=== PATIENT | male | born 1950 | race African-American/Black ===

== ENCOUNTER 2019-02-05 13:41 | Outpatient (CLI) | payer MEDICARE, MEDICAID ==
[~2019-02-05] VITALS: Ht 162.6 cm; Wt 67.6 kg
[~2019-02-05 13:41] MED LIST: ALLOPURINOL300 M1 ORAL; CARDIZEM30 MG ORAL; DILT-XR120 MG PO; HYDROCHLOROTHIA25 MG ORAL; IBUPROFEN600 MG ORAL; NEXIUM40 MG ORAL; NORCO 5-325 TA1 EAC1 ORAL
--- NOTE | 2019-02-05 14:50 | General Progress Note ---
Assessment/Plan Problem List: (1) Esophageal varices ICD Codes: I85.00 - Esophageal varices without bleeding SNOMED: 59727233 (2) Dysphagia ICD Codes: R13.10 - Dysphagia, unspecified SNOMED: 14472193, 413549434 (3) Anemia due to blood loss ICD Codes: D50.0 - Iron deficiency anemia secondary to blood loss (chronic) SNOMED: 564442128 (4) Peptic ulcer disease with hemorrhage ICD Codes: K27.4 - Chronic or unspecified peptic ulcer, site unspecified, with hemorrhage SNOMED: 25813400 (5) Cirrhosis ICD Codes: K74.60 - Unspecified cirrhosis of liver SNOMED: 55272113 (6) Cholelithiasis ICD Codes: K80.20 - Calculus of gallbladder without cholecystitis without obstruction SNOMED: 501221258 (7) Fatty liver ICD Codes: K76.0 - Fatty (change of) liver, not elsewhere classified SNOMED: 993544361 Assessment/Plan: plan EGD with repeat banding plan to remove the GT during EGd also will add colonoscopy given anemia Subjective ROS Limited/Unobtainable: Yes Allergies: Coded Allergies: No Known Allergies (Unverified , 05/04/16) Objective General Appearance: alert EENT: normal ENT inspection Neck: supple Cardiovascular: normal rate Respiratory/Chest: decreased breath sounds Abdomen: normal bowel sounds, non tender, soft Extremities: non-tender Slick Bailey MD Feb 05, 2019 14:50
[2019-02-05] MEDS ORDERED: LISINOPRIL10 MG ORAL (16:15)
[2019-02-05] MEDS ORDERED: AMLODIPINE BESYL5 MG ORAL (16:15)
[2019-02-05] MEDS ORDERED: DULCOLAX10 MG RC (16:15)
[2019-02-05] MEDS ORDERED: PRO-STAT LIQUID30 ML ORAL (16:15)
[2019-02-05] MEDS ORDERED: MILK OF MA400 MG/51 ORAL (16:15)
[2019-02-05] MEDS ORDERED: FERROUS SU220 MG/51 PO (16:15)
[2019-02-05] MEDS ORDERED: FLEET ENEMA133 ML RECTAL (16:15)
[2019-02-05] MEDS ORDERED: METOPROLOL TAR100 MG ORAL (16:15)
[2019-02-05] MEDS ORDERED: CRANBERRY425 MG PO (16:15)
[2019-02-05] MEDS ORDERED: PROCRIT10000 UNIT SUBQ (16:15)
[2019-02-05] MEDS ORDERED: ACETAMINOPHEN325 M1 ORAL (16:15)
[2019-02-05] MEDS ORDERED: COLACE100 MG ORAL (16:15)
[2019-02-05] MEDS ORDERED: SENNA S TABLET1 EAC1 PO (16:15)
[2019-02-05 16:17] VITALS: BP 114/70
== END 2019-02-05 15:41 | disposition home or self-care (01) ==
LOC: PAN 13:41
DX: I85.00 Esophageal varices without bleeding (principal); R13.10 Dysphagia, unspecified; D50.0 Iron deficiency anemia secondary to blood loss (chronic); K27.4 Chronic or unspecified peptic ulcer, site unspecified, with hemorrhage; K74.60 Unspecified cirrhosis of liver; K80.20 Calculus of gallbladder without cholecystitis without obstruction; K76.0 Fatty (change of) liver, not elsewhere classified
CPT/HCPCS: 99202

== ENCOUNTER 2019-02-17 08:19 | Day surgery (SDC) | payer MEDICARE, OTHER ==
[2019-02-17] VITALS (8 sets, daily range): BP systolic 126–150; BP diastolic 85–98
[~2019-02-17] VITALS: Ht 163.8 cm; Wt 76.2 kg
[~2019-02-17 08:19] MED LIST changes: +ACETAMINOPHEN325 M1 ORAL; +AMLODIPINE BESYL5 MG ORAL; +COLACE100 MG ORAL; +CRANBERRY425 MG PO; +DULCOLAX10 MG RC; +FERROUS SU220 MG/51 PO; +FLEET ENEMA133 ML RECTAL; +LISINOPRIL10 MG ORAL; +METOPROLOL TAR100 MG ORAL; +MILK OF MA400 MG/51 ORAL; +PRO-STAT LIQUID30 ML ORAL; +PROCRIT10000 UNIT SUBQ; +SENNA S TABLET1 EAC1 PO
[2019-02-17] MEDS ORDERED: Midazolam 2mg/2ml Inj ONE (08:20)
[2019-02-17] MEDS ORDERED: fentaNYL 100 mcg/2 mL IV ONE (08:20)
--- NOTE | 2019-02-17 09:53 | Pre-Procedure Note/Attestation ---
Pre-Procedure Note/Attestation Complete Prior to Procedure Planned Procedure: not applicable Procedure Narrative: esophagogastroduodenoscopy and colonoscopy Indications for Procedure Pre-Operative Diagnosis: anemia Attestation I attest that I discussed the nature of the procedure; its benefits; risks and complications; and alternatives (and the risks and benefits of such alternatives ), prior to the procedure, with the patient (or the patient's legal traveling representative). I attest that, if there was a reasonable possibility of needing a blood transfusion, the patient (or the patient's legal traveling representative) was given the [facility] standardized written summary, pursuant to the Jesse Amy Blood Safety Act ([place] Health and Safety Code # 1645, as amended). I attest that I re-evaluated the patient just prior to the surgery and that there has been no change in the patient's H&P, except as documented below: Slick Bailey MD Feb 17, 2019 09:53
--- NOTE | 2019-02-17 09:53 | Short Stay Surgery H&P ---
History of Present Illness History of Present Illness Chief Complaint see recent office note HPI Alexey Carrera is a 68 year old male who was admitted on for Gastrointestinal Hemorrhage, Angio Displacia Patient History Allergies: Coded Allergies: No Known Allergies (Unverified , 02/17/19) Medication History Scheduled Allopurinol* (Allopurinol*), 300 MG ORAL DAILY, (Reported) Amino Acids/Protein Hydrolys (Pro-Stat Liquid), 30 ML ORAL TWICE A DAY, ( Reported) Amlodipine Besylate* (Amlodipine Besylate*), 5 MG ORAL DAILY, (Reported) Bisacodyl (Dulcolax), 10 MG RC PRN, (Reported) Cranberry Extract (Cranberry), 850 MG PO DAILY, (Reported) Docusate Sodium* (Colace*), 100 MG ORAL TWICE A DAY, (Reported) Epoetin Rigoberto (Procrit), 10,000 UNIT SUBQ 3XW, (Reported) Ferrous Sulfate (Ferrous Sulfate), 7.5 ML PO TID, (Reported) Lisinopril* (Lisinopril*), 10 MG ORAL DAILY, (Reported) Metoprolol Tartrate* (Metoprolol Tartrate*), 100 MG ORAL EVERY 12 HOURS, ( Reported) Na Phos,M-B/Na Phos,Di-Ba* (Fleet Enema*), 133 ML RECTAL PRN, (Reported) Sennosides/Docusate Sodium (Senna S Tablet), 2 EACH PO QHS, (Reported) Scheduled PRN Acetaminophen* (Acetaminophen 325MG Tablet*), 650 MG ORAL Q4H PRN for Pain Scale (6-10), (Reported) Discontinued Medications Diltiazem HCl (Diltiazem 12Hr ER), 120 MG ORAL EVERY 6 HOURS, (Reported) Discontinued Reason: Pt stopped taking med Diltiazem Hcl (Dilt-Xr), 120 MG PO DAILY, (Reported) Discontinued Reason: Pt stopped taking med Esomeprazole Magnesium (Nexium), 40 MG ORAL BID Discontinued Reason: Pt stopped taking med Hydrochlorothiazide* (Hydrochlorothiazide*), 25 MG ORAL DAILY, (Reported) Discontinued Reason: Pt stopped taking med Hydrocodone Bit/Acetaminophen 5-325* ([place] 5-325 Tablet*), 1 TAB ORAL Q6HR PRN for For Pain, (Reported) Discontinued Reason: Pt stopped taking med Magnesium Hydroxide* (Milk Of Magnesia*), 30 ML ORAL DAILY, (Reported) Discontinued Reason: Pt stopped taking med Physical Exam Vital Signs Last Vital Signs Date Time Temp Pulse Resp B/P (MAP) Pulse Ox O2 Delivery O2 Flow Rate FiO2 02/17/19 09:11 Room Air 02/17/19 09:02 97.2 65 18 133/88 99 Plan Attestation Are the patient's medical conditions optimized for surgery? Slick Bailey MD Feb 17, 2019 09:53
[2019-02-17] MEDS ORDERED: LR 1000ml ONE (10:00)
[2019-02-17] MEDS ORDERED: Propofol 200mg/20ml IV ONE (10:00)
[2019-02-17 10:05] LABS: BASOPHILS % (AUTO) 1.7 % (0.0-2.0); EOSINOPHILS % (AUTO) 2.7 % (0.0-3.0); HEMATOCRIT 42.3 % (42.0-52.0); HEMOGLOBIN 12.4 G/DL (14.2-18.0); LYMPHOCYTES % (AUTO) 35.5 % (20.0-45.0); MEAN CORPUSCULAR VOLUME 90 FL (80-99); PLATELET COUNT 158 K/UL (150-450); RED BLOOD COUNT 4.71 M/UL (4.70-6.10); WHITE BLOOD COUNT 3.5 K/UL (4.8-10.8)
[2019-02-17] MEDS ORDERED: LR 1000ml 1,000 ML IVLG SCH (10:11)
--- NOTE | 2019-02-17 10:11 | Anethesia Preoperative Eval ---
Anesthesia Pre-op PMH/ROS General Date of Evaluation: Feb 17, 2019 Time of Evaluation: 09:50 Anesthesiologist: Atilio ASA Score: ASA 3 Mallampati Score Class I : Soft palate, uvula, fauces, pillars visible Class II: Soft palate, uvula, fauces visible Class III: Soft palate, base of uvula visible Class IV: Only hard plate visible Mallampati Classification: Class II Surgeon: Lynn Diagnosis: GI bleed Surgical Procedure: EGD Colonoscopy Anesthesia History: none Social History: alcohol use - h/o Family History: no anesthesia problems Allergies: Coded Allergies: No Known Allergies (Unverified , 02/17/19) Medications: see eMAR Patient NPO?: Yes Past Medical History Cardiovascular: Reports: HTN; Denies: CAD, DE, valve dz, arrhythmia, other Pulmonary: Denies: asthma, COPD, [place], other Gastrointestinal/Genitourinary: Reports: GERD, other - liver cirrosis; Denies: CRI, ESRD Neurologic/Psychiatric: Reports: depression/anxiety; Denies: dementia, CVA, TIA, other Endocrine: Denies: DM, hypothyroidism, steroids, other HEENT: Denies: cataract (L), cataract (R), glaucoma, [place] (L), [place] (R), other Hematology/Immune: Reports: anemia; Denies: DVT, bleeding disorder, other Musculoskeletal/Integumentary: Denies: OA, RA, DJD, DDD, edema, other PMH Narrative: as above PSxH Narrative: see H&P Anesthesia Pre-op Phys. Exam Physician Exam Last Vital Signs Date Time Temp Pulse Resp B/P (MAP) Pulse Ox O2 Delivery O2 Flow Rate FiO2 02/17/19 09:11 Room Air 02/17/19 09:02 97.2 65 18 133/88 99 Constitutional: NAD Neurologic: CN 2-12 intact Cardiovascular: RRR, no M/R/G Respiratory: CTA Gastrointestinal: S/NT/ND Airway Exam Mallampati Score: Class II MO: limited Neck: stiff Teeth: missing Dentures: no upper, no lower Anesthesia Pre-op A/P Labs Hematology Test 02/17/19 09:27 White Blood Count 3.5 K/UL (4.8-10.8) L Red Blood Count 4.71 M/UL (4.70-6.10) Hemoglobin 12.4 G/DL (14.2-18.0) L Hematocrit 42.3 % (42.0-52.0) Mean Corpuscular Volume 90 FL (80-99) Mean Corpuscular Hemoglobin 26.3 PG (27.0-31.0) L Mean Corpuscular Hemoglobin Concent 29.2 G/DL (32.0-36.0) L Red Cell Distribution Width 21.0 % (11.6-14.8) H Platelet Count 158 K/UL (150-450) Mean Platelet Volume 6.5 FL (6.5-10.1) Neutrophils (%) (Auto) 48.0 % (45.0-75.0) Lymphocytes (%) (Auto) 35.5 % (20.0-45.0) Monocytes (%) (Auto) 12.0 % (1.0-10.0) H Eosinophils (%) (Auto) 2.7 % (0.0-3.0) Basophils (%) (Auto) 1.7 % (0.0-2.0) Chemistry Test 02/17/19 09:27 Sodium Level Pending Potassium Level Pending Chloride Level Pending Carbon Dioxide Level Pending Blood Urea Nitrogen Pending Creatinine Pending Estimat Glomerular Filtration Rate Pending Glucose Level Pending Calcium Level Pending Total Bilirubin Pending Aspartate Amino Transf (AST/SGOT) Pending Alanine Aminotransferase (ALT/SGPT) Pending Alkaline Phosphatase Pending Total Protein Pending Albumin Pending Globulin Pending Studies Pre-op Studies: EKG - SR Risk Assessment & Plan Assessment: ASA 3 Plan: MAC Status Change Before Surgery: No Pre-Antibiotics Drug: none Kenroy Trimble MD Feb 17, 2019 10:11
[2019-02-17] MEDS ORDERED: fentaNYL 100 mcg/2 mL IV PRN (10:15)
--- NOTE | 2019-02-17 10:18 | Endoscopy Procedure Note ---
Endoscopy Procedure Note General Indication for Procedure: screening colon, ESoph varices Procedures Performed: EGD, colonoscopy Operative Findings/Diagnosis: 2 polyps, diverticulosis Specimen: yes Pt Tolerated Procedure Well: Yes Estimated Blood Loss: none Anesthesia Anesthesiologist: vy Anesthesia: MAC Inserted Devices Implant(s) used?: No Quality Quality of Bowel Preparation: Good Did scope reach the cecum?: Yes Was there any complications?: No GI Core Measures 50 yrs or older w/o bx or poly: No 10yrs. F/U recommended: Yes If not recommended, why?: Above average risk 18 years or older w/prev. colo: No Slick Bailey MD Feb 17, 2019 10:18
--- NOTE | 2019-02-17 10:27 | Immediate Post-Op Evaluation ---
Immediate Post-Op Evalulation Immediate Post-Op Evalulation Procedure: EGD Colonoscopy G tube removal Date of Evaluation: Feb 17, 2019 Time of Evaluation: 10:26 IV Fluids: 300 Blood Products: none Estimated Blood Loss: none Urinary Output: none Blood Pressure Systolic: 138 Blood Pressure Diastolic: 86 Pulse Rate: 67 Respiratory Rate: 20 O2 Sat by Pulse Oximetry: 98 Temperature (Fahrenheit): 97.8 Pain Score (1-10): 1 Nausea: No Vomiting: No Complications none Patient Status: reacts, patent, none Hydration Status: adequate Kenroy Trimble MD Feb 17, 2019 10:26
[2019-02-17 10:52] LABS: ANION GAP 12 mmol/L (5-15); BLOOD UREA NITROGEN 7 mg/dL (7-18); CALCIUM 9.5 MG/DL (8.5-10.1); CARBON DIOXIDE 20 MMOL/L (21-32); CHLORIDE 109 MMOL/L (98-107); CREATININE 1.1 MG/DL (0.55-1.30); POTASSIUM 4.9 MMOL/L (3.5-5.1); SODIUM 141 MMOL/L (136-145)
[2019-02-17 11:02] LABS: ALANINE AMINOTRANSFERASE 96 U/L (12-78); ALBUMIN/GLOBULIN RATIO 0.5 (1.0-2.7); ALKALINE PHOSPHATASE 203 U/L (46-116); ASPARTATE AMINO TRANSFERASE 148 U/L (15-37); BILIRUBIN,TOTAL 1.1 MG/DL (0.2-1.0)
[2019-02-17 11:03] LABS: BILIRUBIN,DIRECT 0.4 MG/DL (0.0-0.3)
--- NOTE | 2019-02-17 11:11 | 48 Hour Post Anesthesia Eval ---
Post Anesthesia Evaluation Procedure: EGD Colonoscopy G tube removal Date of Evaluation: Feb 17, 2019 Time of Evaluation: 11:10 Blood Pressure Systolic: 148 0: 72 Pulse Rate: 68 Respiratory Rate: 20 Temperature (Fahrenheit): 97.8 O2 Sat by Pulse Oximetry: 98 Airway: patent Nausea: No Vomiting: No Pain Intensity: 1 Hydration Status: adequate Cardiopulmonary Status: stable Mental Status/LOC: patient returned to baseline Follow-up Care/Observations: n/a Post-Anesthesia Complications: none Follow-up care needed: ready to discharge Kenroy Trimble MD Feb 17, 2019 11:11
--- NOTE | 2019-02-17 18:15 | Procedure Note ---
DATE OF PROCEDURE: 02/17/2019 SURGEON: Slick Bailey M.D. ANESTHESIOLOGIST: Dr. Trimble. PROCEDURE: Upper endoscopy with biopsy, G-tube removal, and colonoscopy with biopsy. ANESTHESIA: Per Dr. Trimble. INSTRUMENT: Olympus adult flexible upper endoscope and colonoscope. INDICATION: History of esophageal varices, need for removal of the G-tube, screening colonoscopy evaluation. The procedure, risks, benefits, and possible consequences, including hemorrhage, aspiration, perforation and infection, and alternative treatments, were explained to the patient/legal guardian by Dr. Slick Bailey and the patient/legal guardian understood and accepted these risks. DESCRIPTION OF PROCEDURE: After informed consent was obtained and the patient was adequately sedated, Olympus upper scope was advanced from mouth into the second portion of duodenum and retroflexion was performed in the stomach. The patient had evidence of esophageal varices. There was evidence of prior banding in the distal esophagus with scar tissue in that area. There was a clip still sitting at the GE junction, actually not only 1 clip compared to prior endoscopies which were two. There are still esophageal varices, but now much smaller. We decided not to band at this time. In the stomach, there was evidence of portal hypertensive gastropathy, evidence of GAVE in the prepyloric region. This area was biopsied. There was an inflammatory-looking polyp in the antrum also, which was biopsied. There was no evidence of any obvious gastric varices. During endoscopy, we removed the G-tube. We grabbed it with a snare and we cut it from externally and removed the G-tube. At this time, the upper endoscope was retrieved. The patient was turned over for colonoscopy. First, rectal exam was performed, which was positive for internal hemorrhoids. Then, the scope was advanced from the rectum into the cecum and subsequently to terminal ileum. Quality of prep was good. The patient had diverticulosis mainly in the right colon, especially in the cecum and ascending colon. There was evidence of two diminutive polyps in the rectosigmoid area, most probably hyperplastic, removed with the cold biopsy forceps technique. The patient had evidence of medium-sized internal hemorrhoids on retroflexion of the rectum. The patient tolerated the procedure very well without any complication. SUMMARY OF FINDINGS: 1. Esophageal varices. 2. Remaining clip at the GE junction. 3. Prior history of banding and scar tissue in the distal esophagus. 4. Portal hypertensive gastropathy, mild. 5. GAVE. 6. Gastric polyp, status post biopsy. 7. Internal hemorrhoids, medium in size. 8. Right-sided diverticulosis. 9. Two colonic polyps removed, see above for details. RECOMMENDATIONS: Follow up pathology. Treat accordingly. Recommend repeat colonoscopy in 5 years. We will recommend repeat EGD no later than 6 months with possible repeat banding at that time. Slick Bailey M.D. DR: Jes JOB#: [id number] CC:
--- NOTE | 2019-02-19 16:27 | Cardiology Report ---
APPROVED REPORT EKG Measurement Heart [id number] Normal sinus rhythm Normal ECG
== END 2019-02-17 12:00 | disposition home or self-care (01) ==
LOC: GAS 08:19
DX: Z12.11 Encounter for screening for malignant neoplasm of colon (principal); K63.5 Polyp of colon; K57.90 Diverticulosis of intestine, part unspecified, without perforation or abscess without bleeding; I85.00 Esophageal varices without bleeding; K76.6 Portal hypertension; K31.89 Other diseases of stomach and duodenum; K31.819 Angiodysplasia of stomach and duodenum without bleeding; K31.7 Polyp of stomach and duodenum; K64.8 Other hemorrhoids; Z79.899 Other long term (current) drug therapy; I10 Essential (primary) hypertension; K21.9 Gastro-esophageal reflux disease without esophagitis; F32.9 Major depressive disorder, single episode, unspecified; F41.9 Anxiety disorder, unspecified; K74.60 Unspecified cirrhosis of liver; K29.50 Unspecified chronic gastritis without bleeding
CPT/HCPCS: 36415; 43239; 43247; 45380; 80053; 82248; 85025; 93005; J2250; J2704; J3010; 94003; 94150

== ENCOUNTER 2019-03-03 13:26 | Outpatient (CLI) | payer MEDICARE, OTHER ==
--- NOTE | 2019-03-03 13:55 | General Progress Note ---
Assessment/Plan Problem List: (1) Gastritis ICD Codes: K29.70 - Gastritis, unspecified, without bleeding SNOMED: 2602587 (2) Cirrhosis ICD Codes: K74.60 - Unspecified cirrhosis of liver SNOMED: 11962652 (3) Alcohol dependence ICD Codes: F10.20 - Alcohol dependence, uncomplicated SNOMED: 68110069, 424547466 (4) Hypertension ICD Codes: I10 - Essential (primary) hypertension SNOMED: 87975106 (5) Fatty liver ICD Codes: K76.0 - Fatty (change of) liver, not elsewhere classified SNOMED: 102631452 Assessment/Plan: esophagogastroduodenoscopy and colonoscopy reviewed add ppi RTC 3 months Subjective ROS Limited/Unobtainable: Yes Allergies: Coded Allergies: No Known Allergies (Unverified , 02/17/19) Objective General Appearance: alert EENT: normal ENT inspection Neck: supple Cardiovascular: normal rate Respiratory/Chest: lungs clear Abdomen: normal bowel sounds, non tender, soft Extremities: non-tender Slick Bailey MD Mar 03, 2019 13:55
== END 2019-03-03 16:00 | disposition home or self-care (01) ==
LOC: PAN 13:26
DX: K29.70 Gastritis, unspecified, without bleeding (principal); K74.60 Unspecified cirrhosis of liver; F10.20 Alcohol dependence, uncomplicated; I10 Essential (primary) hypertension; K76.0 Fatty (change of) liver, not elsewhere classified
CPT/HCPCS: G0463

== ENCOUNTER 2019-12-15 20:45 | Inpatient (IN) | payer MEDICARE, OTHER ==
[~2019-12-15] VITALS: Ht 165.1 cm; Wt 73.9 kg
[2019-12-15 22:35] VITALS: BP 124/83
[2019-12-15] MEDS ORDERED: ASPIR 8181 MG ORAL (23:51)
[2019-12-15] MEDS ORDERED: AMOXICILLIN125 MG ORAL (23:51)
[2019-12-15] MEDS ORDERED: LOSARTAN POTAS100 MG ORAL (23:51)
[2019-12-16] VITALS: BP 125/80
[2019-12-16] MEDS ORDERED: Fleet's Enema 133ml RECTAL SCH (00:15)
[2019-12-16] MEDS ORDERED: D5 1/2NS w/KCl 20mEq 1,000 ML IV ONE (01:30)
[2019-12-16 07:26] LABS: BASOPHILS % (AUTO) 1.2 % (0.0-2.0); EOSINOPHILS % (AUTO) 2.2 % (0.0-3.0); HEMATOCRIT 27.4 % (42.0-52.0); HEMOGLOBIN 8.5 G/DL (14.2-18.0); LYMPHOCYTES % (AUTO) 21.5 % (20.0-45.0); MEAN CORPUSCULAR VOLUME 82 FL (80-99); MONOCYTES % (AUTO) 11.5 % (1.0-10.0); NEUTROPHILS % (AUTO) 63.7 % (45.0-75.0); PLATELET COUNT 169 K/UL (150-450); RED BLOOD COUNT 3.33 M/UL (4.70-6.10); WHITE BLOOD COUNT 3.9 K/UL (4.8-10.8)
--- NOTE | 2019-12-16 07:50 | NUR ---
NURSE NOTES: Received report from Shira ROBLES. Patient is AAO X4, denies any pain and in stable condition. No s/s n/v or SOB. No s/s of distress or discomfort noted. Patient is resting comfortably in bed. Bed is in lowest and locked position, call light within reach, bedside table within reach. Patient's home medications endorsed and will give it to pharmacy. Will continue with the plan of care.
[2019-12-16 08:00] VITALS: BP 143/89
[2019-12-16 08:01] LABS: ANION GAP 11 mmol/L (5-15); BLOOD UREA NITROGEN 10 mg/dL (7-18); CALCIUM 8.3 MG/DL (8.5-10.1); CARBON DIOXIDE 21 MMOL/L (21-32); CHLORIDE 110 MMOL/L (98-107); CREATININE 1.3 MG/DL (0.55-1.30); PHOSPHORUS 3.2 MG/DL (2.5-4.9); POTASSIUM 4.5 MMOL/L (3.5-5.1); SODIUM 141 MMOL/L (136-145)
[2019-12-16] MEDS ORDERED: Metoprolol Tartrate 100mg tab ORAL SCH (09:00)
[2019-12-16] MEDS ORDERED: Losartan 50mg tab ORAL SCH (09:00)
[2019-12-16] MEDS ORDERED: Lisinopril 10mg tab ORAL SCH (09:00)
[2019-12-16] MEDS: Aspirin EC 81mg tab ORAL SCH (09:08)
[2019-12-16] MEDS: Docusate 100mg cap ORAL SCH ×2 (09:10→17:44)
--- NOTE | 2019-12-16 11:04 | Consultation ---
History of Present Illness Present Illness HPI 69 year old male with extensive PMHx of CAD, s/p Stent and recent cardiac cath, cirrhosis, Hep C, ETOH abuse was taken by Paramedics to [facility] with CC of "convulsions". He was briefly unresponsive but quickly gained his consciousness. The CT of head was negative. He is transferred to [facility] [place] further management. Allergies: Coded Allergies: No Known Allergies (Unverified , 02/17/19) Medication History Scheduled Allopurinol* (Allopurinol*), 300 MG ORAL DAILY, (Reported) Amino Acids/Protein Hydrolys (Pro-Stat Liquid), 30 ML ORAL TWICE A DAY, ( Reported) Amlodipine Besylate* (Amlodipine Besylate*), 5 MG ORAL DAILY, (Reported) Amoxicillin (Amoxicillin), 500 MG ORAL BID, (Reported) Aspirin* (Aspir 81*), 81 MG ORAL DAILY, (Reported) Bisacodyl (Dulcolax), 10 MG RC PRN, (Reported) Cranberry Extract (Cranberry), 850 MG PO DAILY, (Reported) Docusate Sodium* (Colace*), 100 MG ORAL TWICE A DAY, (Reported) Epoetin Rigoberto (Procrit), 10,000 UNIT SUBQ 3XW, (Reported) Ferrous Sulfate (Ferrous Sulfate), 7.5 ML PO TID, (Reported) Lisinopril* (Lisinopril*), 10 MG ORAL DAILY, (Reported) Losartan Potassium (Losartan Potassium), 50 MG ORAL DAILY, (Reported) Metoprolol Tartrate* (Metoprolol Tartrate*), 100 MG ORAL EVERY 12 HOURS, ( Reported) Na Phos,M-B/Na Phos,Di-Ba* (Fleet Enema*), 133 ML RECTAL PRN, (Reported) Sennosides/Docusate Sodium (Senna S Tablet), 2 EACH PO QHS, (Reported) Scheduled PRN Acetaminophen* (Acetaminophen 325MG Tablet*), 650 MG ORAL Q4H PRN for Pain Scale (6-10), (Reported) Patient History Healthcare decision maker daughter/roomate Resuscitation status Full Code Advanced Directive on File Past Medical/Surgical History Past Medical/Surgical History: (1) Hepatitis C (2) Gout (3) Cirrhosis (4) Hypertension (5) Portal hypertension (6) Esophageal varices Review of Systems All Other Systems: negative except mentioned in HPI Physical Exam General Appearance: WD/WN, no apparent distress Lines, tubes and drains: peripheral, central line HEENT: PERRL Neck: normal alignment, limited range of motion Respiratory/Chest: chest wall non-tender, normal breath sounds Breasts: no masses Cardiovascular/Chest: normal rate Genitourinary/Rectal: normal genital exam, heme negative stool Extremities: normal range of motion Last 24 Hour Vital Signs Date Time Temp Pulse Resp B/P (MAP) Pulse Ox O2 Delivery O2 Flow Rate FiO2 12/16/19 09:09 78 143/89 12/16/19 09:09 143/89 12/16/19 09:08 143/89 12/16/19 09:00 Room Air 12/16/19 08:00 98.9 73 18 143/89 (107) 100 12/16/19 08:00 73 12/16/19 04:00 75 12/16/19 00:00 97.5 76 20 125/80 (95) 100 12/16/19 00:00 78 12/15/19 22:55 Room Air 12/15/19 22:35 96.4 77 124/83 (97) 98 Intake and Output 12/15/19 12/16/19 19:00 07:00 # Voids 1 # Bowel Movements 1 Laboratory Tests Test 12/16/19 06:30 White Blood Count 3.9 K/UL (4.8-10.8) L Red Blood Count 3.33 M/UL (4.70-6.10) L Hemoglobin 8.5 G/DL (14.2-18.0) L Hematocrit 27.4 % (42.0-52.0) L Mean Corpuscular Volume 82 FL (80-99) Mean Corpuscular Hemoglobin 25.4 PG (27.0-31.0) L Mean Corpuscular Hemoglobin Concent 30.9 G/DL (32.0-36.0) L Red Cell Distribution Width 25.0 % (11.6-14.8) H Platelet Count 169 K/UL (150-450) Mean Platelet Volume 5.1 FL (6.5-10.1) L Neutrophils (%) (Auto) 63.7 % (45.0-75.0) Lymphocytes (%) (Auto) 21.5 % (20.0-45.0) Monocytes (%) (Auto) 11.5 % (1.0-10.0) H Eosinophils (%) (Auto) 2.2 % (0.0-3.0) Basophils (%) (Auto) 1.2 % (0.0-2.0) Sodium Level 141 MMOL/L (136-145) Potassium Level 4.5 MMOL/L (3.5-5.1) Chloride Level 110 MMOL/L (98-107) H Carbon Dioxide Level 21 MMOL/L (21-32) Anion Gap 11 mmol/L (5-15) Blood Urea Nitrogen 10 mg/dL (7-18) Creatinine 1.3 MG/DL (0.55-1.30) Estimat Glomerular Filtration Rate > 60 mL/min (>60) Glucose Level 99 MG/DL (74-106) Calcium Level 8.3 MG/DL (8.5-10.1) L Phosphorus Level 3.2 MG/DL (2.5-4.9) Magnesium Level 2.1 MG/DL (1.8-2.4) Troponin I 0.002 ng/mL (0.000-0.056) Height (Feet): 5 Height (Inches): 5.00 Weight (Pounds): 163 Medications Current Medications Medications (Trade) Dose Ordered Sig/Alexandru Route PRN Reason Start Time Stop Time Status Last Admin Dose Admin Acetaminophen (Tylenol) 650 mg Q4H PRN ORAL Pain Scale (6-10) 12/16/19 00:15 01/15/20 00:14 Allopurinol (allopurinoL) 300 mg DAILY ORAL 12/16/19 09:00 01/15/20 08:59 12/16/19 09:09 Amoxicillin (Amoxil) 500 mg BID ORAL 12/16/19 09:00 12/23/19 08:59 12/16/19 09:09 Aspirin (Ecotrin) 81 mg DAILY ORAL 12/16/19 09:00 01/30/20 08:59 12/16/19 09:08 Bisacodyl (Dulcolax) 10 mg PRN RECTAL 12/16/19 00:15 03/15/20 00:14 Dextrose/ Electrolytes 1,000 ml @ 75 mls/hr [id number] ONCE IV 12/16/19 01:30 12/16/19 14:49 12/16/19 01:19 Docusate Sodium (Colace) 100 mg TWICE A DAY ORAL 12/16/19 09:00 01/15/20 08:59 12/16/19 09:10 Epoetin Rigoberto (Epoetin Rigoberto-EPBX(NON ESRD)) 10,000 unit SUN-SUN-SUN SUBQ 12/17/19 21:00 03/16/20 20:59 UNV Ferrous Sulfate (Feosol) 325 mg THREE TIMES A DAY ORAL 12/16/19 09:00 03/15/20 08:59 12/16/19 09:09 Lisinopril (ZestriL) 10 mg DAILY ORAL 12/16/19 09:00 01/15/20 08:59 12/16/19 09:09 Losartan Potassium (Cozaar) 50 mg DAILY ORAL 12/16/19 09:00 01/15/20 08:59 12/16/19 09:08 Metoprolol Tartrate (Lopressor) 100 mg EVERY 12 HOURS ORAL 12/16/19 09:00 03/15/20 08:59 12/16/19 09:09 Sodium Phosphate (Fleet's Sodium Phosl Enema) 133 ml PRN PRN RECTAL CONSTIPATION 12/16/19 03:30 01/15/20 00:14 UNV Assessment/Plan Problem List: (1) Acute encephalopathy ICD Codes: G93.40 - Encephalopathy, unspecified SNOMED: 86407168, 556042137 (2) New onset seizure ICD Codes: R56.9 - Unspecified convulsions SNOMED: 19040371 (3) Severe anemia ICD Codes: D64.9 - Anemia, unspecified SNOMED: 595511736 (4) Cirrhosis ICD Codes: K74.60 - Unspecified cirrhosis of liver SNOMED: 40584383 (5) Hepatitis C ICD Codes: B19.20 - Unspecified viral hepatitis C without hepatic coma SNOMED: 14613885 (6) Gout ICD Codes: M10.9 - Gout, unspecified SNOMED: 39646854 (7) Hypertension ICD Codes: I10 - Essential (primary) hypertension SNOMED: 55163915 (8) Portal hypertension ICD Codes: K76.6 - Portal hypertension SNOMED: 97992256 Assessment/Plan: telemetry monitoring echocardiogram neurology evaluation anemia w/u including OB of stool monitor BP and treat titrate pts home meds. abdominal US, Chaudhary documents show that pt might have a liver mass. Edgar Max MD Dec 16, 2019 11:03
[2019-12-16 12:00] VITALS: BP 126/84
[2019-12-16 12:30] LABS: INR 1.1 (0.9-1.1)
[2019-12-16 12:33] LABS: LACTATE DEHYDROGENASE 185 U/L (81-234)
[2019-12-16] MEDS ORDERED: Fleet's Enema 133ml RECTAL PRN (12:38)
[2019-12-16 13:01] LABS: % IRON SATURATION 21 % (15-50); IRON 64 ug/dL (50-175); TOTAL IRON BINDING CAPACITY 303 ug/dL (250-450)
--- NOTE | 2019-12-16 13:59 | NUR ---
NURSE NOTES: Dr Cary dc'd amoxicillin and Lisinopril. Order acknowledged and carried out. Will continue to monitor patient.
--- NOTE | 2019-12-16 15:25 | History & Physical ---
History and Physical History & Physicial Dictated for Int Med-Dr Cary no. [id number]. John Anthony MD Dec 16, 2019 15:25
--- NOTE | 2019-12-16 15:34 | NUR ---
CASE MANAGEMENT:REVIEW 69 YR OLD MALE TRANSFERRED FROM [facility] SI: SYNCOPE 96.4 77 20 124/83 98% ON RA WBC-3.9 H/H-8.5/27.4 ESR+88 RETIC+4.0 IS: IVF@75/HR AMOXICILLIN PO BID IRON PO TID LOPRESSOR PO Q12 COZAAR PO QD ASA PO QD ALLOPURINOL PO QD EPOETIN SQ MWF : DIRECTLY ADMITTED TO TELEMETRY PLAN: CAROTID DUPLEX ABD US MRI BRAIN 2DECHO
[2019-12-16 16:00] VITALS: BP 133/83
--- NOTE | 2019-12-16 16:57 | Diagnostic Imaging Report ---
Indication: Abdominal pain, history of cirrhosis Technique: Lockwood-scale and duplex images of the upper abdomen were obtained Comparison: 07/18/2016 Findings: Gallbladder demonstrates gallstones. No wall thickening or pericholecystic fluid Sonographic Koenig's sign is negative. Common bile duct measures / mm in diameter. No intrahepatic biliary ductal dilatation. Liver demonstrates surface nodularity. In the left hepatic lobe, there is suggestion of an isoechoic 3.3 x 3.8 cm mass. In the right hepatic lobe, there is a hypoechoic 6.1 x 5.6 cm mass. This is adjacent to the inferior vena cava. Hepatic parenchyma demonstrates slightly increased echogenicity. Portal vein and hepatic veins are patent. Pancreas is unremarkable. The spleen is enlarged, measuring 13.6 cm long axis dimension Left kidney measures 10 cm in length. Right kidney measures 9.6 cm length. Both kidneys demonstrate normal echogenicity. There is no hydronephrosis. The right kidney demonstrates a cyst . Non-aneurysmal abdominal aorta . Impression: Possible isoechoic 3.8 cm left lobe liver mass. Hypoechoic 6.1 cm right lobe liver mass. Recommend further evaluation with contrast CT Increased hepatic echogenicity and surface nodularity suggestive cirrhotic changes Mild splenomegaly Cholelithiasis, also previously reported. Negative for dilated bile ducts Right renal cyst incidentally noted
[2019-12-16] MEDS: HYDROcodone/Acetamin 10/325 tab ORAL PRN (17:46)
--- NOTE | 2019-12-16 18:15 | Cardiology Progress Note ---
Assessment/Plan Assessment/Plan probable syncope hypotension on presentation to [facility] with occlusion of non dominant rca with coalrel for left with mod dz in left system includign lm and only sever dz describeis om1 small jained by shaila cx stent hepatic dome mass felt to be hcc being vasquez by hepatology at [facility] was to have mri tomorrow cirrhosis hx of g bleed echo normal lv function trop neg despite hours of cp ekg neg bp improved form 90/60 on initial presentation to [facility] to 130/80 a few hour later suggestive that hypotension likely the cause of syncope his ct of head was neg at [facility] it dose not sound as if he had a seizure but that needs to be determined by other experts repeat orthostatic vitals and trop in am if above eval is neg he may be dcd to fu 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 and hepatology and pmd dr mejia at [facility] [id number] Objective Last 24 Hour Vital Signs Date Time Temp Pulse Resp B/P (MAP) Pulse Ox O2 Delivery O2 Flow Rate FiO2 12/16/19 16:00 69 12/16/19 16:00 98.1 72 18 133/83 (100) 99 12/16/19 12:00 98.7 73 18 126/84 (98) 100 12/16/19 12:00 72 12/16/19 09:09 78 143/89 12/16/19 09:09 143/89 12/16/19 09:08 143/89 12/16/19 09:00 Room Air 12/16/19 08:00 98.9 73 18 143/89 (107) 100 12/16/19 08:00 73 12/16/19 04:00 75 12/16/19 00:00 97.5 76 20 125/80 (95) 100 12/16/19 00:00 78 12/15/19 22:55 Room Air 12/15/19 22:35 96.4 77 124/83 (97) 98 Intake and Output 12/15/19 12/16/19 19:00 07:00 # Voids 1 # Bowel Movements 1 Laboratory Tests Test 12/16/19 06:30 12/16/19 11:45 White Blood Count 3.9 K/UL (4.8-10.8) L Red Blood Count 3.33 M/UL (4.70-6.10) L Hemoglobin 8.5 G/DL (14.2-18.0) L Hematocrit 27.4 % (42.0-52.0) L Mean Corpuscular Volume 82 FL (80-99) Mean Corpuscular Hemoglobin 25.4 PG (27.0-31.0) L Mean Corpuscular Hemoglobin Concent 30.9 G/DL (32.0-36.0) L Red Cell Distribution Width 25.0 % (11.6-14.8) H Platelet Count 169 K/UL (150-450) Mean Platelet Volume 5.1 FL (6.5-10.1) L Neutrophils (%) (Auto) 63.7 % (45.0-75.0) Lymphocytes (%) (Auto) 21.5 % (20.0-45.0) Monocytes (%) (Auto) 11.5 % (1.0-10.0) H Eosinophils (%) (Auto) 2.2 % (0.0-3.0) Basophils (%) (Auto) 1.2 % (0.0-2.0) Differential Total Cells Counted 100 Neutrophils % (Manual) 67 % (45-75) Lymphocytes % (Manual) 20 % (20-45) Monocytes % (Manual) 10 % (1-10) Eosinophils % (Manual) 2 % (0-3) Basophils % (Manual) 1 % (0-2) Band Neutrophils 0 % (0-8) Platelet Estimate Adequate Platelet Morphology Normal Hypochromasia 2+ Anisocytosis 4+ Sodium Level 141 MMOL/L (136-145) Potassium Level 4.5 MMOL/L (3.5-5.1) Chloride Level 110 MMOL/L (98-107) H Carbon Dioxide Level 21 MMOL/L (21-32) Anion Gap 11 mmol/L (5-15) Blood Urea Nitrogen 10 mg/dL (7-18) Creatinine 1.3 MG/DL (0.55-1.30) Estimat Glomerular Filtration Rate > 60 mL/min (>60) Glucose Level 99 MG/DL (74-106) Calcium Level 8.3 MG/DL (8.5-10.1) L Phosphorus Level 3.2 MG/DL (2.5-4.9) Magnesium Level 2.1 MG/DL (1.8-2.4) Troponin I 0.002 ng/mL (0.000-0.056) Erythrocyte Sedimentation Rate 88 MM/HR (0-20) H Reticulocyte Count 4.0 % (0.5-2.0) H Prothrombin Time 11.4 SEC (9.30-11.50) Prothromb Time International Ratio 1.1 (0.9-1.1) Activated Partial Thromboplast Time 27 SEC (23-33) Iron Level 64 ug/dL (50-175) Total Iron Binding Capacity 303 ug/dL (250-450) Percent Iron Saturation 21 % (15-50) Unsaturated Iron Binding 239 ug/dL (112-346) Lactate Dehydrogenase 185 U/L (81-234) Alpha Fetoprotein Pending Carcinoembryonic Antigen Pending Vitamin B12 Level 515 PG/ML (193-986) Folate 12.0 NG/ML (8.6-58.9) Herman Gonzalez MD Dec 16, 2019 18:15
--- NOTE | 2019-12-16 19:35 | NUR ---
HAND-OFF: Report given to Adalgisa ROBLES. Patient is instable condition.
--- NOTE | 2019-12-16 20:29 | NUR ---
NURSE NOTES: Received patient in bed, awake, alert, oriented, able to make his needs know, BRP, no acute distress noted or reported, IV site is clean dry and intact, call light is within reach, bed is lowered, locked, alarm is on, will continue to monitor for comfort and safety.
--- NOTE | 2019-12-16 20:44 | History and Physical Report ---
DATE OF ADMISSION: 12/15/2019 CHIEF COMPLAINT: Patient is a 69-year-old male, who presents with a chief complaint of syncopal episode and shortness of breath. HISTORY OF PRESENT ILLNESS: Patient states began yesterday, 12/15/2019. Patient went for a bike ride. Patient then came home. Patient began to experience chest pain and shortness of breath. Patient states he sat down to watch TV. Patient states he then got "convulsions." Patient's geme called 911. Patient initially presented to [facility] emergency room. An initial workup was within normal limits. Patient is transferred to [facility] due to insurance purposes. Patient is admitted with syncopal episode to rule out acute cerebrovascular accident versus acute myocardial infarction. REVIEW OF SYSTEMS: CONSTITUTIONAL: The patient denies weight loss or weight gain. Patient denies fevers or chills. HEENT: Patient denies ear or throat pain. Patient denies headache. CARDIOVASCULAR: Patient denies palpitations or chest pain. CHEST: Patient complains of shortness of breath as above. CARDIOVASCULAR: Patient complains of chest pain as above. Patient denies palpitations. CHEST: Patient complains of shortness of breath as above. Patient denies wheezes. ABDOMEN: Patient denies nausea, vomiting, diarrhea, or constipation. GENITOURINARY: Patient denies dysuria or increased frequency of urination. NEUROMUSCULAR: Patient complains of "convulsions" as above. Patient denies generalized weakness. PAST MEDICAL HISTORY: Significant for: 1. Cerebrovascular disease, status post cerebrovascular accident x2 in 2018. 2. Coronary artery disease, status post myocardial infarction in May 2019. Patient is status post cardiac catheterization in October of 2019. 3. Hypertension. 4. Gout. 5. Anemia. PAST SURGICAL HISTORY: Significant for: 1. Cardiac catheterization in October of 2019. 2. Gastric ulcer with hemorrhage. 3. Exploratory laparotomy secondary to bleeding gastric ulcer. 4. Resection of left lower rib secondary to tumor in 2011. CURRENT MEDICATIONS: 1. Allopurinol 300 mg 1 tablet p.o. daily. 2. Amlodipine 5 mg p.o. daily. 3. Aspirin 81 mg p.o. daily. 4. Procrit 10,000 units subcutaneously 3 times weekly. 5. Iron sulfate 220 mg per 5 mL 7.5 mL p.o. 3 times daily. 6. Lisinopril 10 mg p.o. daily. 7. Losartan 50 mg 2 tablets p.o. daily. 8. Metoprolol 100 mg p.o. twice daily. ALLERGIES: No known drug allergies. SOCIAL HISTORY: Patient is single and is engaged. Patient admits to tobacco use of one-quarter pack per day. Patient admits to alcohol use of 1 beer daily. PHYSICAL EXAMINATION: VITAL SIGNS: Temperature 98.0, respirations 20, pulse 70 to 81, blood pressure 131/83. GENERAL: Patient is well-developed, well-nourished male. No apparent distress. HEENT: Eyes, pupils are equal and responsive to light and accommodation. Extraocular movements are intact. NECK: Supple without lymphadenopathy. CHEST: Lungs are clear to auscultation bilaterally without wheezes or rales. CARDIOVASCULAR: Regular rhythm and rate. S1-S2 are normal without murmurs, rubs, or gallops. ABDOMINAL: Soft, nontender, and nondistended. Positive bowel sounds. No evidence of hepatosplenomegaly. Currently, no rebound or guarding noted. EXTREMITIES: Negative for clubbing, cyanosis, or edema. RECTAL/GENITAL: Not performed. NEUROLOGIC: Cranial nerves II through XII are grossly intact without focal deficits. Motor strength is 5/5 bilaterally. Deep tendon reflexes are 2+ plantar. LABORATORY STUDIES: WBC 5.0, hemoglobin 8.4, hematocrit 38.1, platelets 202,000. Sodium 133, potassium 4.1, chloride 108, CO2 17, BUN 13, creatinine 1.74, glucose 104. INR 1.2. A cardiac catheterization from [facility] notes from 12/05/2019 revealed moderate left main coronary artery stenosis and total occlusion of the right coronary artery. Ejection fraction was noted to be . A CT scan of the brain at [facility] revealed old lacunar cerebellar infarcts; however, negative for hemorrhage or acute infarct. ASSESSMENT: This is a 69-year-old male. 1. Syncopal episode. 2. Coronary artery disease. 3. Cerebrovascular disease. 4. Acute on chronic renal failure. 5. Liver mass. 6. History of hepatitis C. 7. Hypertension. 8. Chronic anemia. 9. Gout. TREATMENT: 1. Syncopal episode. This may be secondary to cerebrovascular disease versus coronary artery disease. An MRI of the brain is pending. A Cardiology consultation has been obtained with Dr. Herman Gonzalez. We will follow recommendations of Cardiology. Serial troponin levels will be performed. 2. Coronary artery disease. Patient is status post cardiac catheterization on 12/05/2019 per [facility] notes. As above, a Cardiology consultation has been obtained with Dr. Herman Gonzalez. 3. Cerebrovascular disease. Patient is status post cerebrovascular accident x2. An MRI of the brain is pending. Initial CAT scan failed to demonstrate acute infarct. 4. Renal failure. This may be secondary to dehydration versus chronic renal failure. 5. Liver mass. Patient was scheduled for liver mass biopsy at [facility] on 12/17/2019. 6. Chronic hepatitis C. 7. Hypertension. Continue metoprolol and Norvasc as above. 8. Chronic anemia. Continue iron as above. 9. Gout. Continue allopurinol as above. John Anthony M.D. DR: MICHELLE JOB#: [id number] CC:
[2019-12-17] VITALS: BP 136/84
[2019-12-17 04:00] VITALS: BP 117/75
--- NOTE | 2019-12-17 07:05 | NUR ---
HAND-OFF: Report given to Telma ROBLES.
--- NOTE | 2019-12-17 07:08 | NUR ---
NURSE NOTES: Received report from Jackie ROBLES. Patient is AAO X4, denies any pain and in stable condition. No s/s n/v or SOB. No s/s of distress or discomfort noted. Patient is resting comfortably in bed. Bed is in lowest and locked position, call light within reach, bedside table within reach. Will continue with the plan of care.
--- NOTE | 2019-12-17 07:44 | Consultation ---
DATE OF CONSULTATION: 12/16/2019 CARDIOLOGY CONSULTATION REFERRING PHYSICIANS: 1. Levi Cary MD 2. John Anthony MD REASON FOR REFERRAL: Syncope. HISTORY OF PRESENT ILLNESS: This is an elderly gentleman who is somewhat of a poor historian. Information is obtained from the patient directly as well as my discussion with the patient's girlfriend, which I was able to contact through the [facility] website, and of course, review of the patient's [facility] record indicates he has had a heart attack back in May and he has had chest pains off and on since then and sometimes very severe and because of the severity of the chest pain, he drops down to his knees. His girlfriend gives a history of having 9 episodes of an event that occurred yesterday. He was watching TV and he lost consciousness apparently. His body, his girlfriend thinks, went limp. He was foaming at the mouth and he was trying to swallow his tongue. This lasted approximately 5 minutes, he woke up, and denied having had any problems, and because of his symptoms, his girlfriend eventually talked to him to go to the emergency room. She took him to the emergency room at [facility] where he was initially evaluated, and because of insurance reasons, once he was stabilized relatively, he was transferred to [facility] where he usually gets his care, did not have a bed available. He tells me he has had these chest pains off and and since May, he has very heavy pains and they are severe that can last anywhere between 1 to 2 hours to several days at a time, and for this reason, he has had an evaluation at [facility] including the cardiac catheterization which will be delineated below. Nevertheless, he does not have any PND or orthopnea, uses one pillow. He has occasional dizziness or lightheadedness on standing and he is off balance and he has to sit down sometimes and he denies any palpitations. PAST MEDICAL HISTORY: History according to the [facility] records is positive for a history of cirrhosis secondary to chronic hepatitis C and alcohol with 6 centimeter hepatic dome mass noted in August 2019 with the imaging suspicious for hepatocellular carcinoma in the setting of cirrhosis. Apparently, he received some kind of injection medication while he was incarcerated back in 2007 to 2010 and for 6 months, either case he does have a history of heavy alcohol use previously. He started drinking approximately in November 2019. He does have a history of coronary artery disease with history of myocardial infarction in June 2019, somewhere in [place] that he was to another place, apparently got some kind treatment, the details of which are not known. He does have a prior history of CVA and history of hypertension and peptic ulcer disease. He has had rib dissection for 3 left-sided ribs, he reported because of a tumor according to himself. The patient has had evaluations by the Hepatology Service at [facility] as well as Dr. See and his usual physician is Dr. Bradley Sesay and he has a history of stent that was placed with progressive exertional angina, underwent a perfusion imaging that showed a 16% reversible defect and he basically underwent a cardiac catheterization by ____ that showed moderate disease of left main, 50% ostial LAD disease with minimal luminal irregularities, moderate diffuse disease otherwise with septal collaterals to the right coronary artery, moderate disease in the first diagonal that was 2.75 millimeter vessel, ramus intermedius 40 to 50% proximal stenosis. Circumflex proximally had moderate disease and patent stent in the proximal circumflex that extends into the mid segment across the first obtuse marginal. The first marginal is a small vessel with ostial 80 to 90% stenosis. The second obtuse marginal totally occluded at the ostium with faint collaterals from the ramus. There was a large vessel with mild diffuse disease with small left PDA and mild diffuse disease with faint collaterals to the distal right coronary, normal ejection fraction 55%. Medical management is recommended given the patient likely had an underlying malignancy as well as active smoking and severe gastrointestinal bleeding with recommendation of possible revascularization of the left main coronary artery for refractory medical therapy. FAMILY HISTORY: Brother with myocardial infarction, sister with a stroke and mother with breast cancer. ALLERGIES: He is not allergic to any medications. SOCIAL HISTORY: His significant other is a female who reports the patient apparently does drink 4 beers a day for a long time. He stopped drinking after his recent hospitalization in November 2019. He has a history of smoking since age 20, 1 cigarette per day and most recently. At the present time, he lives at home. REVIEW OF SYSTEMS: GASTROINTESTINAL: He denies any nausea or vomiting or diarrhea or constipation. He does have some black stools. He is on iron therapy. However, he cannot tell whether this is tarry-looking stools. GENITOURINARY: Negative. He has frequent nocturia approximately 3 or 4 times. PULMONARY: He has a cough after he contracted an infection back approximately 6 months ago in [place] and has continued to cough since then. He does indicate that he has COVID-19 checked at [facility] when he was hospitalized last time. Pulmonary review of systems otherwise is unremarkable. CONSTITUTIONAL: Denies any fever, chills, or night sweats. NEUROLOGICAL: Except for the episode of loss of consciousness, otherwise unremarkable. PHYSICAL EXAMINATION: GENERAL: Shows to be middle-aged gentleman, in no respiratory distress. He was actually walking in the room when I arrived to the interview. LUNGS: Clear to auscultation and percussion. CARDIAC: Regular rate and rhythm. No heaves or thrills noted. ABDOMEN: Soft. EXTREMITIES: There is no clubbing, cyanosis, nor is there any edema. NEUROLOGICAL: He is awake, alert, responsive, and in no apparent distress. LABORATORY AND DIAGNOSTIC DATA: His data from [facility] was reviewed with a white count of 5 with hemoglobin 8.4 with platelet count of 202 and his sodium was 132, potassium 4.1, chloride 108, bicarb 17 and BUN of 13. Urine drug screen was negative for PCP, cocaine, methamphetamine, opiates, amphetamines, benzos, TCA and barbiturates. His creatinine was 1.74 over at [facility] and his INR was 1.2 and calcium 8.3, magnesium of 2.6, and his troponin was 0.02. His BNP was only 63. CT scan of the head was done and I believe the preliminary reports that were available were negative. In fact, mild to moderate central and cortical atrophy, there is scattered small-vessel ischemic changes, probably old bilateral cerebellar infarctions and lacunar infarction . His telemetry data so far here has been sinus rhythm. His EKG yesterday shows normal sinus rhythm and really no significant ST or T-wave abnormalities and in comparison with prior EKG at [facility], the EKG is otherwise unchanged. Previously, he had some biphasic T-waves in V2 through V3, which were not present on the present EKG at this time. His echocardiogram that was performed shows normal left ventricular systolic function, ejection fraction of 65%, really no significant other abnormalities. A mild left ventricular diastolic dysfunction is noted. His other labs here, white count 3.9, hemoglobin 8.5, and platelet count of 169. Sedimentation rate of 88. His sodium is 141, potassium is 4.5, chloride 110, bicarb of 21, BUN of 10, creatinine 1.3, and glucose of 99. His magnesium is 2.1. His cardiac enzymes again negative at 0.02 here. B12 of 512, folic acid of 12, iron of 64, TIBC of 303, 21% saturation and his coags INR 1.1 and PTT of 27. An abdominal ultrasound was performed here today showing a 3.8 centimeter left lobe liver mass and centimeter right lobe liver mass, increased hepatic echogenicity suggestive of cirrhosis, mild splenomegaly, cholelithiasis. ASSESSMENT AND PLAN: 1. Momentary loss of consciousness, possibly syncope. 2. History of cirrhosis. 3. History of coronary artery disease with history of prior circumflex stent that was patent as of a week or two ago by catheterization. 4. His occluded right coronary artery that was nondominant with moderate disease in the left system including the left main. 5. History of chronic hepatitis C, status post treatment. 6. 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 7. Chest pain somewhat atypical. This patient was seen in cardiac consultation. His [facility] records as well as [facility] records have reviewed. The initial cardiac consultation on 12/15/2019 shows a blood pressure of 90/60 on arrival and eventually at approximately 21:07, the blood pressure has increased to 131/83. I suspect that the symptoms that he may have had was possibly related to syncope. His girlfriend does indicate that he has had several bouts of this loss of consciousness on prior occasions. He does not describe a stiffening sensation but rather a limping of the patient's body and some foaming in the mouth. Apparently, there is no loss of bowel or bladder control and afterward the patient does not appear to be drowsy or sleepy, in fact arguing with his girlfriend that nothing had happened to him, which is not typical like a seizure disorder, but my feeling is that he probably had a syncopal episode, possibly related to hypotension. He continues to have these episodes of chest pains that are somewhat atypical and there is no evidence of myonecrosis. No EKG abnormalities and he has had a perfusion imaging apparently at [facility] showing significant amount of myocardial ischemia in fact of LAD, medium-sized small reversible defect in the inferolateral wall, but the cardiac catheterization in those regions according to were not severe, except for the ostium of an obtuse marginal that was jailed by the stent. He has had recent GI bleeding requiring transfusions and he has had an extensive workup with continuation of workup being necessary through the Hepatology as well as Surgical Department at [facility]. His MRI according to his girlfriend is scheduled for tomorrow. I think a set of IV fluids should be administered. He should have another repeat set of cardiac enzymes and if that is negative and he is observed from a cardiac point of view, no arrhythmia is being noted and then from a cardiac point of view, he may be discharged with followup with his gym instructor as well as Dr. Arias as well as Dr. See and the Hepatology service for further workup. Herman Gonzalez M.D. DR: Jeanne JOB#: [id number] CC:
[2019-12-17 08:00] VITALS: BP 140/85
[2019-12-17 09:02] LABS: BASOPHILS % (AUTO) 0.9 % (0.0-2.0); EOSINOPHILS % (AUTO) 1.5 % (0.0-3.0); HEMATOCRIT 30.2 % (42.0-52.0); HEMOGLOBIN 9.2 G/DL (14.2-18.0); LYMPHOCYTES % (AUTO) 23.4 % (20.0-45.0); MEAN CORPUSCULAR VOLUME 84 FL (80-99); MONOCYTES % (AUTO) 6.8 % (1.0-10.0); NEUTROPHILS % (AUTO) 67.4 % (45.0-75.0); PLATELET COUNT 209 K/UL (150-450)
--- NOTE | 2019-12-17 09:25 | NUR ---
CASE MANAGEMENT:REVIEW 12/17/19 SI: SYNCOPE. AC/CHR RENAL FAILURE CIRRHOSIS. HEP C. CHEST PAIN 97.3 73 16 117/75 98% ON RA WBC-4.0 H/H-9.2/30.2 IS: EPOETIN SQ MWF COZAAR PO QD TOPROL XL PO QD ALLOPURINOL PO QD ASA PO QD : TELEMETRY STATUS DCP: FROM HOME PLAN: MRI PENDING CAROTID DUPLEX PENDING NEURO CHECKS ORTHOSTATIC VITALS
[2019-12-17] MEDS: Metoprolol Succinate XL 100mg tab ORAL SCH (09:29)
[2019-12-17] MEDS: Docusate 100mg cap ORAL SCH ×2 (09:29→17:35)
[2019-12-17] MEDS: Aspirin EC 81mg tab ORAL SCH (09:30)
[2019-12-17] MEDS: Losartan 25mg tab ORAL SCH (09:30)
[2019-12-17 09:35] LABS: ALANINE AMINOTRANSFERASE 67 U/L (12-78); ALBUMIN 2.8 G/DL (3.4-5.0); ALBUMIN/GLOBULIN RATIO 0.5 (1.0-2.7); ALKALINE PHOSPHATASE 149 U/L (46-116); ANION GAP 10 mmol/L (5-15); ASPARTATE AMINO TRANSFERASE 139 U/L (15-37); BILIRUBIN,TOTAL 0.9 MG/DL (0.2-1.0); BLOOD UREA NITROGEN 12 mg/dL (7-18); CARBON DIOXIDE 21 MMOL/L (21-32); CHLORIDE 107 MMOL/L (98-107); CREATININE 1.1 MG/DL (0.55-1.30); LACTATE DEHYDROGENASE 190 U/L (81-234); PHOSPHORUS 3.4 MG/DL (2.5-4.9); POTASSIUM 3.9 MMOL/L (3.5-5.1); SODIUM 138 MMOL/L (136-145)
[2019-12-17] MEDS ORDERED: Gadavist 7.5mMol/7.5ml vial IV SCH (11:15)
[2019-12-17] MEDS: HYDROcodone/Acetamin 10/325 tab ORAL PRN ×2 (11:26→21:20)
--- NOTE | 2019-12-17 11:26 | Diagnostic Imaging Report ---
Indication: Syncope. History of prior stroke Technique: MRI the brain performed utilizing T1 sagittal, T2 axial, T1 FLAIR axial, T2 FLAIR axial, T2*GRE and diffusion axial images without gadolinium. Comparison: None Findings: No true focus of restricted effusion is identified. There is a punctate (4 mm) rounded focus of diffusion signal hyperintensity within the white matter of the right parietal lobe WITHOUT corresponding signal dropout on ADC. This may represent artifact or T2 shine through from underlying chronic white matter disease. There is no focus of abnormal signal dropout on GRE to suggest acute intracranial hemorrhage. The sulci, ventricles and cisterns are prominent consistent with atrophy. Periventricular and supratentorial white matter T2 hyperintensity are seen without mass effect most commonly related to chronic ischemic microvascular changes. More focal area of T2 signal hyperintensity noted in the white matter of the right frontal lobe suggesting chronic white matter infarct in this region. There is no shift of midline structures. No significant extra-axial collections of fluid or blood are demonstrated. Expected signal flow voids are seen of the vessels of the skull base. Visualized mastoid air cells and paranasal sinuses are unremarkable. No focal bony calvarium or soft tissue lesions are seen. IMPRESSION: No acute intracranial abnormality identified. Atrophy and chronic ischemic microvascular changes. 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
[2019-12-17] MEDS ORDERED: Gadavist 7.5mMol/7.5ml vial IV PRN (11:30)
--- NOTE | 2019-12-17 11:35 | Pulmonology Progress Note ---
Assessment/Plan Problems: (1) Acute encephalopathy (2) New onset seizure (3) Severe anemia (4) Cirrhosis (5) Hepatitis C (6) Gout (7) Hypertension (8) Portal hypertension Assessment/Plan doing better MRI of liver pending US of abdomen reviewed awaiting neuro evaluation monitor BP symptomatic treatment CEA is slightly increased. Subjective ROS Limited/Unobtainable: No Constitutional: Reports: no symptoms HEENT: Repors: no symptoms Respiratory: Reports: no symptoms Allergies: Coded Allergies: No Known Allergies (Unverified , 02/17/19) Objective Last 24 Hour Vital Signs Date Time Temp Pulse Resp B/P (MAP) Pulse Ox O2 Delivery O2 Flow Rate FiO2 12/17/19 09:30 140/85 12/17/19 09:29 69 140/85 12/17/19 09:00 Room Air 12/17/19 08:00 98.1 74 18 140/85 (103) 99 12/17/19 08:00 74 12/17/19 04:00 60 12/17/19 04:00 97.3 73 16 117/75 (89) 98 12/17/19 00:00 66 12/17/19 00:00 98.0 74 20 136/84 (101) 98 12/16/19 21:59 Room Air 12/16/19 20:00 74 72 78 12/16/19 20:00 72 12/16/19 16:00 69 12/16/19 16:00 98.1 72 18 133/83 (100) 99 12/16/19 12:00 98.7 73 18 126/84 (98) 100 12/16/19 12:00 72 Intake and Output 12/16/19 12/17/19 19:00 07:00 Intake Total 720 ml Output Total 1750 ml Balance -1030 ml Intake Oral 720 ml Output Urine Total 1750 ml # Bowel Movements 1 1 General Appearance: WD/WN HEENT: atraumatic, PERRL Respiratory/Chest: chest wall non-tender Cardiovascular: normal peripheral pulses, normal rate Abdomen: normal bowel sounds, soft, non tender, no organomegaly Genitourinary: normal external genitalia Neurologic/Psychiatric: hat lining paster II-XII grossly normal Laboratory Tests 12/16/19 11:45: Erythrocyte Sedimentation Rate 88H, Reticulocyte Count 4.0H, Prothrombin Time 11.4, Prothromb Time International Ratio 1.1, Activated Partial Thromboplast Time 27, Iron Level 64, Total Iron Binding Capacity 303, Percent Iron Saturation 21, Unsaturated Iron Binding 239, Lactate Dehydrogenase 185, Alpha Fetoprotein 5.1, Carcinoembryonic Antigen 5.5H, Vitamin B12 Level 515, Folate 12.0 12/17/19 08:35: Erythrocyte Sedimentation Rate [Pending], Reticulocyte Count [Pending], Lactate Dehydrogenase 190, White Blood Count 4.0L, Red Blood Count 3.60L, Hemoglobin 9.2L, Hematocrit 30.2L, Mean Corpuscular Volume 84, Mean Corpuscular Hemoglobin 25.7L, Mean Corpuscular Hemoglobin Concent 30.6L, Red Cell Distribution Width 25.0H, Platelet Count 209, Mean Platelet Volume 5.2L, Neutrophils (%) (Auto) 67.4, Lymphocytes (%) (Auto) 23.4, Monocytes (%) (Auto) 6.8, Eosinophils (%) ( Auto) 1.5, Basophils (%) (Auto) 0.9, Sodium Level 138, Potassium Level 3.9, Chloride Level 107, Carbon Dioxide Level 21, Anion Gap 10, Blood Urea Nitrogen 12, Creatinine 1.1, Estimat Glomerular Filtration Rate > 60, Glucose Level 120H , Calcium Level 9.0, Phosphorus Level 3.4, Magnesium Level 2.0, Total Bilirubin 0.9, Aspartate Amino Transf (AST/SGOT) 139H, Alanine Aminotransferase (ALT/SGPT ) 67, Alkaline Phosphatase 149H, Troponin I 0.003, Total Protein 8.1, Albumin 2.8L, Globulin 5.3, Albumin/Globulin Ratio 0.5L 12/17/19 09:35: Stool Occult Blood [Pending] Current Medications Medications (Trade) Dose Ordered Sig/Alexandru Route PRN Reason Start Time Stop Time Status Last Admin Dose Admin Acetaminophen (Tylenol) 650 mg Q4H PRN ORAL Pain Scale (6-10) 12/16/19 00:15 01/15/20 00:14 Acetaminophen/ Hydrocodone Bitart ([place] 10/325) 1 tab Q4H PRN ORAL For Pain 12/16/19 12:38 12/23/19 12:37 12/17/19 11:26 Allopurinol (allopurinoL) 300 mg DAILY ORAL 12/16/19 09:00 01/15/20 08:59 12/17/19 09:30 Aspirin (Ecotrin) 81 mg DAILY ORAL 12/16/19 09:00 01/30/20 08:59 12/17/19 09:30 Bisacodyl (Dulcolax) 10 mg PRN RECTAL 12/16/19 00:15 03/15/20 00:14 Docusate Sodium (Colace) 100 mg TWICE A DAY ORAL 12/16/19 09:00 01/15/20 08:59 12/17/19 09:29 Epoetin Rigoberto (Epoetin Rigoberto-EPBX(NON ESRD)) 10,000 unit SUN- SUBQ 12/17/19 21:00 03/16/20 20:59 Ferrous Sulfate (Feosol) 325 mg THREE TIMES A DAY ORAL 12/16/19 09:00 03/15/20 08:59 12/17/19 09:30 Gadobutrol (Gadavist) 7.5 mmol ONCE PRN IV radiology procedure 12/17/19 11:30 12/19/19 11:14 Losartan Potassium (Cozaar) 25 mg DAILY ORAL 12/17/19 09:00 01/16/20 08:59 12/17/19 09:30 Metoprolol Succinate (Toprol XL) 100 mg DAILY ORAL 12/17/19 09:00 03/16/20 08:59 12/17/19 09:29 Sodium Phosphate (Fleet's Sodium Phosl Enema) 133 ml DAILYPRN PRN RECTAL CONSTIPATION 12/16/19 12:38 01/15/20 12:37 Edgar Max MD Dec 17, 2019 11:35
--- NOTE | 2019-12-17 11:43 | Diagnostic Imaging Report ---
Indication: Syncope. TECHNIQUE: Bilateral duplex carotid sonography. Carotid stenosis grading criteria from the Society of Radiologists in ultrasound Consensus Conference on Carotid Ultrasound from May 2002. Person: None FINDINGS: Atherosclerotic plaque is noted bilaterally. Right carotid: The peak systolic velocities are 55 cm/s in the CCA, 44 cm/s in the proximal ICA, 34 cm is identified in the distal ICA. Velocities in the mid ICA on the right not documented. The ICA/CCA ratio is 1.1. Left carotid: The peak systolic velocities are 83 cm/s in the CCA, 38 cm/s in the proximal ICA, 70 cm/s in the mid ICA, 58 cm/s in the distal ICA. The ICA/CCA ratio is 1.2. Vertebral arteries: Patent with antegrade flow bilaterally IMPRESSION: Atherosclerotic plaquing noted bilaterally. No hemodynamically significant stenosis of the bilateral internal carotid arteries with less than 50% stenosis, based on obtained velocities. Vertebral arteries patent with antegrade flow.
[2019-12-17 12:00] VITALS: BP 113/77
--- NOTE | 2019-12-17 12:30 | Internal Med Progress Note ---
Subjective Date of Service: Dec 17, 2019 Physician Name John Anthony Attending Physician Levi Cary MD Current Medications Medications (Trade) Dose Ordered Sig/Alexandru Route PRN Reason Start Time Stop Time Status Last Admin Dose Admin Acetaminophen (Tylenol) 650 mg Q4H PRN ORAL Pain Scale (6-10) 12/16/19 00:15 01/15/20 00:14 Acetaminophen/ Hydrocodone Bitart ([place] 10/325) 1 tab Q4H PRN ORAL For Pain 12/16/19 12:38 12/23/19 12:37 12/17/19 11:26 Allopurinol (allopurinoL) 300 mg DAILY ORAL 12/16/19 09:00 01/15/20 08:59 12/17/19 09:30 Aspirin (Ecotrin) 81 mg DAILY ORAL 12/16/19 09:00 01/30/20 08:59 12/17/19 09:30 Bisacodyl (Dulcolax) 10 mg PRN RECTAL 12/16/19 00:15 03/15/20 00:14 Docusate Sodium (Colace) 100 mg TWICE A DAY ORAL 12/16/19 09:00 01/15/20 08:59 12/17/19 09:29 Epoetin Rigoberto (Epoetin Rigoberto-EPBX(NON ESRD)) 10,000 unit SUN-SUN-SUN SUBQ 12/17/19 21:00 03/16/20 20:59 Ferrous Sulfate (Feosol) 325 mg THREE TIMES A DAY ORAL 12/16/19 09:00 03/15/20 08:59 12/17/19 09:30 Gadobutrol (Gadavist) 7.5 mmol ONCE PRN IV radiology procedure 12/17/19 11:30 12/19/19 11:14 Losartan Potassium (Cozaar) 25 mg DAILY ORAL 12/17/19 09:00 01/16/20 08:59 12/17/19 09:30 Metoprolol Succinate (Toprol XL) 100 mg DAILY ORAL 12/17/19 09:00 03/16/20 08:59 12/17/19 09:29 Sodium Phosphate (Fleet's Sodium Phosl Enema) 133 ml DAILYPRN PRN RECTAL CONSTIPATION 12/16/19 12:38 01/15/20 12:37 Allergies: Coded Allergies: No Known Allergies (Unverified , 7/1/19) ROS Limited/Unobtainable: No Constitutional: Reports: no symptoms HEENT: Reports: no symptoms Cardiovascular: Reports: no symptoms Respiratory: Reports: no symptoms Gastrointestinal/Abdominal: Reports: no symptoms Genitourinary: Reports: no symptoms Neurologic/Psychiatric: Reports: no symptoms Subjective 69 YO M with history of CVA and MN admitted with syncope. Cover for Int Farhad-Dr Cary Objective Last Vital Signs Date Time Temp Pulse Resp B/P (MAP) Pulse Ox O2 Delivery O2 Flow Rate FiO2 12/17/19 09:30 140/85 12/17/19 09:29 69 12/17/19 09:00 Room Air 12/17/19 08:00 98.1 18 99 Laboratory Tests Test 12/17/19 08:35 12/17/19 09:35 White Blood Count 4.0 K/UL (4.8-10.8) L Red Blood Count 3.60 M/UL (4.70-6.10) L Hemoglobin 9.2 G/DL (14.2-18.0) L Hematocrit 30.2 % (42.0-52.0) L Mean Corpuscular Volume 84 FL (80-99) Mean Corpuscular Hemoglobin 25.7 PG (27.0-31.0) L Mean Corpuscular Hemoglobin Concent 30.6 G/DL (32.0-36.0) L Red Cell Distribution Width 25.0 % (11.6-14.8) H Platelet Count 209 K/UL (150-450) Mean Platelet Volume 5.2 FL (6.5-10.1) L Neutrophils (%) (Auto) 67.4 % (45.0-75.0) Lymphocytes (%) (Auto) 23.4 % (20.0-45.0) Monocytes (%) (Auto) 6.8 % (1.0-10.0) Eosinophils (%) (Auto) 1.5 % (0.0-3.0) Basophils (%) (Auto) 0.9 % (0.0-2.0) Erythrocyte Sedimentation Rate 95 MM/HR (0-20) H Reticulocyte Count 3.2 % (0.5-2.0) H Sodium Level 138 MMOL/L (136-145) Potassium Level 3.9 MMOL/L (3.5-5.1) Chloride Level 107 MMOL/L (98-107) Carbon Dioxide Level 21 MMOL/L (21-32) Anion Gap 10 mmol/L (5-15) Blood Urea Nitrogen 12 mg/dL (7-18) Creatinine 1.1 MG/DL (0.55-1.30) Estimat Glomerular Filtration Rate > 60 mL/min (>60) Glucose Level 120 MG/DL (74-106) H Calcium Level 9.0 MG/DL (8.5-10.1) Phosphorus Level 3.4 MG/DL (2.5-4.9) Magnesium Level 2.0 MG/DL (1.8-2.4) Total Bilirubin 0.9 MG/DL (0.2-1.0) Aspartate Amino Transf (AST/SGOT) 139 U/L (15-37) H Alanine Aminotransferase (ALT/SGPT) 67 U/L (12-78) Alkaline Phosphatase 149 U/L (46-116) H Lactate Dehydrogenase 190 U/L (81-234) Troponin I 0.003 ng/mL (0.000-0.056) Total Protein 8.1 G/DL (6.4-8.2) Albumin 2.8 G/DL (3.4-5.0) L Globulin 5.3 g/dL Albumin/Globulin Ratio 0.5 (1.0-2.7) L Stool Occult Blood Pending Intake and Output 12/16/19 12/17/19 19:00 07:00 Intake Total 720 ml Output Total 1750 ml Balance -1030 ml Intake Oral 720 ml Output Urine Total 1750 ml # Bowel Movements 1 1 Objective PHYSICAL EXAMINATION: GENERAL: Patient is well-developed, well-nourished male. No apparent distress. HEENT: Eyes, pupils are equal and responsive to light and accommodation. Extraocular movements are intact. NECK: Supple without lymphadenopathy. CHEST: Lungs are clear to auscultation bilaterally without wheezes or rales. CARDIOVASCULAR: Regular rhythm and rate. S1-S2 are normal without murmurs, rubs, or gallops. ABDOMINAL: Soft, nontender, and nondistended. Positive bowel sounds. No evidence of hepatosplenomegaly. Currently, no rebound or guarding noted. EXTREMITIES: Negative for clubbing, cyanosis, or edema. RECTAL/GENITAL: Not performed. NEUROLOGIC: Cranial nerves II through XII are grossly intact without focal deficits. Motor strength is 5/5 bilaterally. Deep tendon reflexes are 2+ plantar. Assessment/Plan Assessment/Plan ASSESSMENT: This is a 69-year-old male. 1. Syncopal episode. 2. Coronary artery disease. 3. Cerebrovascular disease. 4. Acute on chronic renal failure. 5. Liver mass. 6. History of hepatitis C. 7. Hypertension. 8. Chronic anemia. 9. Gout. TREATMENT: 1. Syncopal episode. This may be secondary to cerebrovascular disease versus coronary artery disease. An MRI of the brain = no acute infarct. A Cardiology consultation has been obtained with Dr. Herman Gonzalez. We will follow recommendations of Cardiology. Serial troponin levels = neg 2. Coronary artery disease. Patient is status post cardiac catheterization on 12/05/2019 per [place] notes. As above, a Cardiology consultation has been obtained with Dr. Herman Gonzalez. 3. Cerebrovascular disease. Patient is status post cerebrovascular accident x2. An MRI of the brain=neg acute infarct. Carotid doppler <50% stenosis 4. Renal failure. This may be secondary to dehydration versus chronic renal failure. 5. Liver mass. ?hepatocellular carcinoma? Patient was scheduled for liver mass biopsy at [facility] on 12/17/2019. Follow up with [facility] hepatobiliary team on discharge. 6. Chronic hepatitis C. 7. Hypertension. Continue metoprolol and Norvasc as above. 8. Chronic anemia. Continue iron as above. 9. Gout. Continue allopurinol as above. John Anthony MD Dec 17, 2019 12:30
--- NOTE | 2019-12-17 14:21 | NUR ---
MRI ABDOMEN W/WO COMPLETED.
--- NOTE | 2019-12-17 15:24 | Diagnostic Imaging Report ---
Indication: Abdominal pain. Liver mass noted on abdominal ultrasound. Technique: MRI of the abdomen was obtained in a multisequence, multiplanar acquisition before and after administration of IV gadolinium. MRCP sequences also obtained. Comparison: Correlation made to abdominal ultrasound 12/16/[address] abdomen pelvis 05/08/2016. Findings: Multiple sequences are degraded by patient motion. Additionally there is susceptibility artifact in the upper abdomen related to surgical clips in the proximal stomach/gastroesophageal junction which were better seen on the prior CT of 05/07/2016. Within limitations of the exam: Liver has a nodular contour compatible with cirrhosis. Within the hepatic dome (segment VII) there is a mass lesion that measures approximately 6.1 cm craniocaudal by 6.5 cm transverse and approximately 6.2 cm AP. This lesion demonstrates brisk arterial phase enhancement with washout on more delayed phase and enhancing pseudocapsule. Findings are highly concerning for hepatocellular carcinoma and correlation with tumor markers (AFP) is recommended. No additional arterial enhancing liver mass is identified. Note however that evaluation of portions of the left hepatic lobe is limited due to susceptibility artifact described above. Hepatic veins and portal veins appear patent. Gallstones are noted within nondistended gallbladder. There is no gallbladder wall thickening or pericholecystic inflammatory changes. No biliary ductal dilatation. MRCP images demonstrate no evidence of choledocholithiasis. The pancreatic duct is normal in caliber. The spleen is enlarged measuring 15 cm in length. Pancreas grossly unremarkable. There is a cyst in the upper pole the right kidney that measures approximately 3 cm diameter. There is noted evidence of hydronephrosis bilaterally. There is colonic diverticulosis. No evidence to suggest acute diverticulitis. Imaged lung bases grossly unremarkable. Heart appears borderline enlarged. The abdominal aorta is normal in caliber. There is atherosclerotic disease. Gynecomastia is suggested. Bone marrow signal appears homogenous. No appreciable acute osseous abnormality. IMPRESSION: Exam degraded by patient motion, significantly degrading some series. There is also significant susceptibility artifact related to surgical serial/clips in the region of the proximal stomach/GE junction (seen on CT 05/08/2016). Within the limitations of the study: * 6.5 cm mass in the hepatic dome with imaging characteristics highly concerning for hepatocellular carcinoma. Correlation with tumor markers (AFP)recommended. * Cirrhosis with sequela of portal hypertension including splenomegaly * Cholelithiasis without evidence of acute cholecystitis. * Diverticulosis without evidence of acute diverticulitis.
[2019-12-17 16:00] VITALS: BP 139/86
--- NOTE | 2019-12-17 16:46 | Cardiology Progress Note ---
Assessment/Plan Assessment/Plan 1. Momentary loss of consciousness, likely syncope. 2. History of cirrhosis. 3. History of coronary artery disease with history of prior circumflex stent that was patent as of a week or two ago by catheterization. 4. His occluded right coronary artery that was nondominant with moderate disease in the left system including the left main. 5. History of chronic hepatitis C, status post treatment. 6. 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 6 centimeter hepatic dome mass suspicious for hepatocellular carcinoma. 8. 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 cardaic cath resutl as noted aobe Subjective Cardiovascular: Denies: chest pain Subjective i did not see pt as no adequate ppe Objective Last 24 Hour Vital Signs Date Time Temp Pulse Resp B/P (MAP) Pulse Ox O2 Delivery O2 Flow Rate FiO2 12/17/19 12:00 97.5 76 20 113/77 (89) 98 12/17/19 12:00 76 12/17/19 09:30 140/85 12/17/19 09:29 69 140/85 12/17/19 09:00 Room Air 12/17/19 08:00 98.1 74 18 140/85 (103) 99 12/17/19 08:00 74 12/17/19 04:00 60 12/17/19 04:00 97.3 73 16 117/75 (89) 98 12/17/19 00:00 66 12/17/19 00:00 98.0 74 20 136/84 (101) 98 12/16/19 21:59 Room Air 12/16/19 20:00 74 72 78 12/16/19 20:00 72 General Appearance: no apparent distress, other - pt not examined due to lack of adequate ppe remain for all staff Intake and Output 12/16/19 12/17/19 19:00 07:00 Intake Total 720 ml Output Total 1750 ml Balance -1030 ml Intake Oral 720 ml Output Urine Total 1750 ml # Bowel Movements 1 1 Laboratory Tests Test 12/17/19 08:35 12/17/19 09:35 White Blood Count 4.0 K/UL (4.8-10.8) L Red Blood Count 3.60 M/UL (4.70-6.10) L Hemoglobin 9.2 G/DL (14.2-18.0) L Hematocrit 30.2 % (42.0-52.0) L Mean Corpuscular Volume 84 FL (80-99) Mean Corpuscular Hemoglobin 25.7 PG (27.0-31.0) L Mean Corpuscular Hemoglobin Concent 30.6 G/DL (32.0-36.0) L Red Cell Distribution Width 25.0 % (11.6-14.8) H Platelet Count 209 K/UL (150-450) Mean Platelet Volume 5.2 FL (6.5-10.1) L Neutrophils (%) (Auto) 67.4 % (45.0-75.0) Lymphocytes (%) (Auto) 23.4 % (20.0-45.0) Monocytes (%) (Auto) 6.8 % (1.0-10.0) Eosinophils (%) (Auto) 1.5 % (0.0-3.0) Basophils (%) (Auto) 0.9 % (0.0-2.0) Erythrocyte Sedimentation Rate 95 MM/HR (0-20) H Reticulocyte Count 3.2 % (0.5-2.0) H Sodium Level 138 MMOL/L (136-145) Potassium Level 3.9 MMOL/L (3.5-5.1) Chloride Level 107 MMOL/L (98-107) Carbon Dioxide Level 21 MMOL/L (21-32) Anion Gap 10 mmol/L (5-15) Blood Urea Nitrogen 12 mg/dL (7-18) Creatinine 1.1 MG/DL (0.55-1.30) Estimat Glomerular Filtration Rate > 60 mL/min (>60) Glucose Level 120 MG/DL (74-106) H Calcium Level 9.0 MG/DL (8.5-10.1) Phosphorus Level 3.4 MG/DL (2.5-4.9) Magnesium Level 2.0 MG/DL (1.8-2.4) Total Bilirubin 0.9 MG/DL (0.2-1.0) Aspartate Amino Transf (AST/SGOT) 139 U/L (15-37) H Alanine Aminotransferase (ALT/SGPT) 67 U/L (12-78) Alkaline Phosphatase 149 U/L (46-116) H Lactate Dehydrogenase 190 U/L (81-234) Troponin I 0.003 ng/mL (0.000-0.056) Total Protein 8.1 G/DL (6.4-8.2) Albumin 2.8 G/DL (3.4-5.0) L Globulin 5.3 g/dL Albumin/Globulin Ratio 0.5 (1.0-2.7) L Stool Occult Blood Positive (NEGATIVE) Herman Gonzalez MD Dec 17, 2019 16:46
--- NOTE | 2019-12-17 19:50 | NUR ---
HAND-OFF: Report given to Laura ROBLES. Endorsed the plan of care.
[2019-12-17 20:00] VITALS: BP 121/79
--- NOTE | 2019-12-17 20:01 | NUR ---
NURSE NOTES: Received report from TRAVIS Saleem. Patient is awake lying semi-lynn's watching TV; resting comfortably. No signs of acute distress noted; complains of pain. AOx4; able to make needs known. Ambulates with some assistance. Checked IV site; patent and flushed. No erythema, bleeding, or infiltration noted. Bed at lowest position, brakes on, siderails up x3. Call light within reach. Will continue to monitor.
[2019-12-17] MEDS: Epoetin Alfa-EPBX (NON ESRD)10,000 unit/ml vial SUBQ SCH (21:08)
--- NOTE | 2019-12-17 21:45 | Consultation ---
DATE OF CONSULTATION: 12/17/2019 CONSULTING PHYSICIAN: Slick Bailey MD. REFERRING PHYSICIAN: Levi Cary MD. CHIEF COMPLAINT: Hepatitis C cirrhosis, liver lesion, anemia. HISTORY OF PRESENT ILLNESS: This is a 69-year-old male who apparently came back from a biking ride and had a syncopal episode for which he was admitted to the hospital. He also has history of coronary artery disease and history of recent cardiac catheterization in October 2019. The patient also has history of hepatitis C with a lesion in the liver and was supposed to have a biopsy today at [facility]. PAST MEDICAL HISTORY: Significant for: 1. History of hepatitis C cirrhosis. 2. Liver lesion. 3. CVA. 4. Coronary artery disease and cardiac cath in October 2019. 5. Hypertension. 6. Gout. 7. Anemia. ALLERGIES: No known drug allergies. MEDICATIONS: Please see medication reconciliation list. SOCIAL HISTORY: The patient is single. He still smokes cigarettes per day and also drinks 1 beer per day. Denies any IV drug abuse. FAMILY HISTORY: Noncontributory. REVIEW OF SYSTEMS: Ten-point review of systems was performed and pertinent positives in HPI. PAST SURGICAL HISTORY: 1. The patient had cardiac catheterization in October 2019. 2. History of bleeding gastric ulcer requiring exploratory laparotomy. 3. 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 PHYSICAL EXAMINATION: VITAL SIGNS: Temperature is 98.1, pulse 74, respiration 18, blood pressure 140/85. HEENT: Normocephalic, atraumatic. Sclerae anicteric. NECK: Supple. No evidence of obvious lymphadenopathy. CARDIOVASCULAR: Regular rhythm. Plus S1, S2. LUNGS: Decreased breath sounds bilaterally based on the supine exam. ABDOMEN: Soft, nontender. No rebound. No guarding. No peritoneal sign. EXTREMITIES: No cyanosis. No clubbing. No edema. NEUROLOGIC: Nonfocal. LABORATORY DATA: White count is 4.9, hemoglobin 9.2, hematocrit 30, platelet count is 209,000. Chem-7, sodium 138, potassium 3.9, BUN is 12, creatinine is 1.1. Liver function, alkaline phosphatase is 149, AST of 139, ALT of 67, total bilirubin is 0.9. CEA was 5.5. Alpha-fetoprotein 5.1. ASSESSMENT AND PLAN: This is a 69-year-old male with hepatitis C cirrhosis, maybe combination also alcoholic cirrhosis. Given the AST and ALT ratio is 2:1, alcohol would be one condition, also cirrhosis can do that. The patient has a liver lesion seen on the ultrasound. Apparently, he was supposed to get a biopsy at [facility] today. The patient, we are now examining. They were taking him down for MRI of the abdomen, which we will need to follow up. Depending on the results of MRI, we will consider ordering CT-guided biopsy of the liver lesion. In terms of anemia, it seems to be normocytic. There is no evidence of any iron deficiency. No evidence of any active GI bleeding. Stool OB had been sent and results were pending. We will follow and make further recommendation as the results are back. I want to thank, Dr. Cary, for this kind referral. Slick Bailey M.D. DR: Jes JOB#: [id number] CC: Levi Cary M.D.; Fax#: [phone]
[2019-12-18] VITALS: BP 127/89
--- NOTE | 2019-12-18 03:56 | NUR ---
NURSE NOTES: Patient is asleep lying semi-lynn's; resting comfortably. No signs of acute distress or pain noted at this time.
[2019-12-18 04:00] VITALS: BP 124/75
--- NOTE | 2019-12-18 07:30 | NUR ---
HAND-OFF: Report given to TRAVIS Saleem. Patient is awake eating breakfast. In stable condition.
--- NOTE | 2019-12-18 07:39 | NUR ---
NURSE NOTES: Received report from Laura ROBLES. Patient is AAO X4, denies any pain at this time. No s/s pain at this time. No s/s of distress or discomfort noted. Patient is resting comfortably in bed. Bed is in lowest and locked position, call light within reach, bedside table within reach. Will continue with the plan of care.
[2019-12-18 07:46] LABS: BASOPHILS % (AUTO) 1.1 % (0.0-2.0); EOSINOPHILS % (AUTO) 1.9 % (0.0-3.0); HEMATOCRIT 29.6 % (42.0-52.0); HEMOGLOBIN 9.1 G/DL (14.2-18.0); LYMPHOCYTES % (AUTO) 22.5 % (20.0-45.0); MEAN CORPUSCULAR VOLUME 84 FL (80-99); MONOCYTES % (AUTO) 10.7 % (1.0-10.0); NEUTROPHILS % (AUTO) 63.8 % (45.0-75.0); PLATELET COUNT 209 K/UL (150-450); RED BLOOD COUNT 3.53 M/UL (4.70-6.10); RED CELL DISTRIBUTION WIDTH 25.2 % (11.6-14.8)
[2019-12-18 08:00] VITALS: BP 130/83
[2019-12-18 08:01] LABS: ANION GAP 7 mmol/L (5-15); BLOOD UREA NITROGEN 14 mg/dL (7-18); CALCIUM 9.2 MG/DL (8.5-10.1); CARBON DIOXIDE 24 MMOL/L (21-32); CHLORIDE 108 MMOL/L (98-107); CREATININE 1.1 MG/DL (0.55-1.30); POTASSIUM 4.4 MMOL/L (3.5-5.1); SODIUM 139 MMOL/L (136-145)
[2019-12-18] MEDS ORDERED: Lidocaine 1% Plain 30 ml INJ PRN (09:00)
[2019-12-18] MEDS: Aspirin EC 81mg tab ORAL SCH (09:15)
[2019-12-18] MEDS: Docusate 100mg cap ORAL SCH ×2 (09:15→17:39)
[2019-12-18] MEDS: Metoprolol Succinate XL 100mg tab ORAL SCH (09:15)
[2019-12-18] MEDS: Losartan 25mg tab ORAL SCH (09:15)
--- NOTE | 2019-12-18 10:52 | Pulmonology Progress Note ---
Assessment/Plan Problems: (1) Liver mass (2) Positive occult stool blood test (3) Acute encephalopathy (4) Severe anemia (5) Cirrhosis (6) Hepatitis C (7) Gout (8) Hypertension (9) Portal hypertension Assessment/Plan doing better, liver biopsy done MRI of liver done: * 6.5 cm mass in the hepatic dome with imaging characteristics highly concerning for hepatocellular carcinoma. * Cirrhosis with sequela of portal hypertension including splenomegaly blood smear reviewed by pathologist: LEUCOPENIA WITH SCATTERED REACTIVE/ATYPICAL LYMPHOCYTES NORMOCYTIC HYPOCHROMIC ANEMIA WITH ANISOCYTOSIS US of abdomen reviewed monitor BP symptomatic treatment CEA is slightly increased. Subjective ROS Limited/Unobtainable: No Constitutional: Reports: no symptoms HEENT: Repors: no symptoms Respiratory: Reports: no symptoms Allergies: Coded Allergies: No Known Allergies (Unverified , 02/17/19) Objective Last 24 Hour Vital Signs Date Time Temp Pulse Resp B/P (MAP) Pulse Ox O2 Delivery O2 Flow Rate FiO2 12/18/19 09:15 73 130/83 12/18/19 09:15 130/83 12/18/19 04:00 98.0 63 18 124/75 (91) 97 12/18/19 04:00 73 12/18/19 00:00 69 12/18/19 00:00 96.4 69 20 127/89 (102) 99 12/17/19 21:10 74 12/17/19 21:05 75 12/17/19 21:00 66 12/17/19 21:00 Room Air 12/17/19 20:00 67 12/17/19 20:00 97.2 66 19 121/79 (93) 98 12/17/19 16:00 69 71 80 12/17/19 16:00 98.1 69 20 139/86 (103) 98 12/17/19 16:00 75 12/17/19 12:00 97.5 76 20 113/77 (89) 98 12/17/19 12:00 76 Intake and Output 12/17/19 12/18/19 19:00 07:00 Intake Total 720 ml 120 ml Output Total 200 ml Balance 520 ml 120 ml Intake Oral 720 ml 120 ml Output Urine Total 200 ml # Voids 2 # Bowel Movements 1 General Appearance: WD/WN HEENT: atraumatic, PERRL Respiratory/Chest: chest wall non-tender Cardiovascular: normal peripheral pulses, normal rate Abdomen: normal bowel sounds, soft, non tender, no organomegaly Genitourinary: normal external genitalia 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 grossly normal Laboratory Tests 12/18/19 06:53: White Blood Count 4.0L, Red Blood Count 3.53L, Hemoglobin 9.1L, Hematocrit 29.6L , Mean Corpuscular Volume 84, Mean Corpuscular Hemoglobin 25.7L, Mean Corpuscular Hemoglobin Concent 30.6L, Red Cell Distribution Width 25.2H, Platelet Count 209, Mean Platelet Volume 5.1L, Neutrophils (%) (Auto) 63.8, Lymphocytes (%) (Auto) 22.5, Monocytes (%) (Auto) 10.7H, Eosinophils (%) (Auto) 1.9, Basophils (%) (Auto) 1.1, Sodium Level 139, Potassium Level 4.4, Chloride Level 108H, Carbon Dioxide Level 24, Anion Gap 7, Blood Urea Nitrogen 14, Creatinine 1.1, Estimat Glomerular Filtration Rate > 60, Glucose Level 88, Calcium Level 9.2 Current Medications Medications (Trade) Dose Ordered Sig/Alexandru Route PRN Reason Start Time Stop Time Status Last Admin Dose Admin Acetaminophen (Tylenol) 650 mg Q4H PRN ORAL Pain Scale (6-10) 12/16/19 00:15 01/15/20 00:14 Acetaminophen/ Hydrocodone Bitart ([place] 10/325) 1 tab Q4H PRN ORAL For Pain 12/16/19 12:38 12/23/19 12:37 12/17/19 21:20 Allopurinol (allopurinoL) 300 mg DAILY ORAL 12/16/19 09:00 01/15/20 08:59 12/18/19 09:15 Bisacodyl (Dulcolax) 10 mg PRN RECTAL 12/16/19 00:15 03/15/20 00:14 Docusate Sodium (Colace) 100 mg TWICE A DAY ORAL 12/16/19 09:00 01/15/20 08:59 12/18/19 09:15 Epoetin Rigoberto (Epoetin Rigoberto-EPBX(NON ESRD)) 10,000 unit SUN-SUN-SUN SUBQ 12/17/19 21:00 03/16/20 20:59 12/17/19 21:08 Ferrous Sulfate (Feosol) 325 mg THREE TIMES A DAY ORAL 12/16/19 09:00 03/15/20 08:59 12/18/19 09:15 Gadobutrol (Gadavist) 7.5 mmol ONCE PRN IV radiology procedure 12/17/19 11:30 12/19/19 11:14 Lidocaine HCl (Xylocaine 1% 30ml) 30 ml NOW PRN INJ Radiology Procedure 12/18/19 09:00 12/20/19 08:48 Losartan Potassium (Cozaar) 25 mg DAILY ORAL 12/17/19 09:00 01/16/20 08:59 12/18/19 09:15 Metoprolol Succinate (Toprol XL) 100 mg DAILY ORAL 12/17/19 09:00 03/16/20 08:59 12/18/19 09:15 Sodium Phosphate (Fleet's Sodium Phosl Enema) 133 ml DAILYPRN PRN RECTAL CONSTIPATION 12/16/19 12:38 01/15/20 12:37 Edgar Max MD Dec 18, 2019 10:52
--- NOTE | 2019-12-18 11:28 | General Progress Note ---
Assessment/Plan Assessment/Plan: 1. History of hepatitis C cirrhosis. 2. Liver mass 3. CVA. 4. Coronary artery disease and cardiac cath in October 2019. 5. Hypertension. 6. Gout. 7. Anemia. 8. GIB [facility] records reviewed patient has stool ob positive at [facility] too no GI procedures were done MRI reviewed plan CT guided biopsy of liver mass plan EGD and colonoscopy tomorrow for GIB Subjective ROS Limited/Unobtainable: Yes Allergies: Coded Allergies: No Known Allergies (Unverified , 02/17/19) Objective Last 24 Hour Vital Signs Date Time Temp Pulse Resp B/P (MAP) Pulse Ox O2 Delivery O2 Flow Rate FiO2 12/18/19 09:15 73 130/83 12/18/19 09:15 130/83 12/18/19 09:00 Room Air 12/18/19 08:00 81 12/18/19 08:00 98.1 81 20 130/83 (99) 99 12/18/19 04:00 98.0 63 18 124/75 (91) 97 12/18/19 04:00 73 12/18/19 00:00 69 12/18/19 00:00 96.4 69 20 127/89 (102) 99 12/17/19 21:10 74 12/17/19 21:05 75 12/17/19 21:00 66 12/17/19 21:00 Room Air 12/17/19 20:00 67 12/17/19 20:00 97.2 66 19 121/79 (93) 98 12/17/19 16:00 69 71 80 12/17/19 16:00 98.1 69 20 139/86 (103) 98 12/17/19 16:00 75 12/17/19 12:00 97.5 76 20 113/77 (89) 98 12/17/19 12:00 76 Intake and Output 12/17/19 12/18/19 19:00 07:00 Intake Total 720 ml 120 ml Output Total 200 ml Balance 520 ml 120 ml Intake Oral 720 ml 120 ml Output Urine Total 200 ml # Voids 2 # Bowel Movements 1 Laboratory Tests 12/18/19 06:53: White Blood Count 4.0L, Red Blood Count 3.53L, Hemoglobin 9.1L, Hematocrit 29.6L , Mean Corpuscular Volume 84, Mean Corpuscular Hemoglobin 25.7L, Mean Corpuscular Hemoglobin Concent 30.6L, Red Cell Distribution Width 25.2H, Platelet Count 209, Mean Platelet Volume 5.1L, Neutrophils (%) (Auto) 63.8, Lymphocytes (%) (Auto) 22.5, Monocytes (%) (Auto) 10.7H, Eosinophils (%) (Auto) 1.9, Basophils (%) (Auto) 1.1, Sodium Level 139, Potassium Level 4.4, Chloride Level 108H, Carbon Dioxide Level 24, Anion Gap 7, Blood Urea Nitrogen 14, Creatinine 1.1, Estimat Glomerular Filtration Rate > 60, Glucose Level 88, Calcium Level 9.2 Height (Feet): 5 Height (Inches): 5.00 Weight (Pounds): 163 General Appearance: alert EENT: normal ENT inspection Neck: supple Cardiovascular: normal rate Respiratory/Chest: decreased breath sounds Abdomen: normal bowel sounds, non tender, soft Extremities: non-tender Slick Bailey MD Dec 18, 2019 11:28
[2019-12-18] MEDS ORDERED: Bisacodyl EC 5mg tab ORAL SCH (11:30)
[2019-12-18 12:00] VITALS: BP 120/82
[2019-12-18] MEDS: D5 1/2NS w/KCl 20mEq 1,000 ML IV SCH (15:48)
--- NOTE | 2019-12-18 15:48 | Cardiology Progress Note ---
Assessment/Plan Assessment/Plan 1. Momentary loss of consciousness, likely syncope. 2. History of cirrhosis. 3. History of coronary artery disease with history of prior circumflex stent that was patent as of a week or two ago by catheterization. 4. His occluded right coronary artery that was nondominant with moderate disease in the left system including the left main. 5. History of chronic hepatitis C, status post treatment. 6. 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 6 centimeter hepatic dome mass suspicious for hepatocellular carcinoma. 8. Chest pain somewhat atypical.d 9. OB + stool 10. 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 bp seems perfect at this time stool ob + planned for egd and colonoscopy Subjective Cardiovascular: Denies: chest pain Respiratory: Reports: cough; Denies: shortness of breath Gastrointestinal/Abdominal: Denies: abdominal pain Genitourinary: Denies: burning Subjective upset Objective Last 24 Hour Vital Signs Date Time Temp Pulse Resp B/P (MAP) Pulse Ox O2 Delivery O2 Flow Rate FiO2 12/18/19 12:00 97.8 68 20 120/82 (95) 100 12/18/19 12:00 68 12/18/19 09:15 73 130/83 12/18/19 09:15 130/83 12/18/19 09:00 Room Air 12/18/19 08:00 81 12/18/19 08:00 98.1 81 20 130/83 (99) 99 12/18/19 04:00 98.0 63 18 124/75 (91) 97 12/18/19 04:00 73 12/18/19 00:00 69 12/18/19 00:00 96.4 69 20 127/89 (102) 99 12/17/19 21:10 74 12/17/19 21:05 75 12/17/19 21:00 66 12/17/19 21:00 Room Air 12/17/19 20:00 67 12/17/19 20:00 97.2 66 19 121/79 (93) 98 12/17/19 16:00 69 71 80 12/17/19 16:00 98.1 69 20 139/86 (103) 98 12/17/19 16:00 75 General Appearance: no apparent distress, alert Neck: supple Cardiovascular: normal rate Respiratory/Chest: lungs clear Abdomen: non tender, soft Extremities: no swelling Intake and Output 12/17/19 12/18/19 19:00 07:00 Intake Total 720 ml 120 ml Output Total 200 ml Balance 520 ml 120 ml Intake Oral 720 ml 120 ml Output Urine Total 200 ml # Voids 2 # Bowel Movements 1 Laboratory Tests Test 12/18/19 06:53 White Blood Count 4.0 K/UL (4.8-10.8) L Red Blood Count 3.53 M/UL (4.70-6.10) L Hemoglobin 9.1 G/DL (14.2-18.0) L Hematocrit 29.6 % (42.0-52.0) L Mean Corpuscular Volume 84 FL (80-99) Mean Corpuscular Hemoglobin 25.7 PG (27.0-31.0) L Mean Corpuscular Hemoglobin Concent 30.6 G/DL (32.0-36.0) L Red Cell Distribution Width 25.2 % (11.6-14.8) H Platelet Count 209 K/UL (150-450) Mean Platelet Volume 5.1 FL (6.5-10.1) L Neutrophils (%) (Auto) 63.8 % (45.0-75.0) Lymphocytes (%) (Auto) 22.5 % (20.0-45.0) Monocytes (%) (Auto) 10.7 % (1.0-10.0) H Eosinophils (%) (Auto) 1.9 % (0.0-3.0) Basophils (%) (Auto) 1.1 % (0.0-2.0) Sodium Level 139 MMOL/L (136-145) Potassium Level 4.4 MMOL/L (3.5-5.1) Chloride Level 108 MMOL/L (98-107) H Carbon Dioxide Level 24 MMOL/L (21-32) Anion Gap 7 mmol/L (5-15) Blood Urea Nitrogen 14 mg/dL (7-18) Creatinine 1.1 MG/DL (0.55-1.30) Estimat Glomerular Filtration Rate > 60 mL/min (>60) Glucose Level 88 MG/DL (74-106) Calcium Level 9.2 MG/DL (8.5-10.1) Herman Gonzalez MD Dec 18, 2019 15:48
[2019-12-18 16:00] VITALS: BP 124/81
[2019-12-18] MEDS ORDERED: Polyethylene Glycol 238gm bottle ORAL SCH (16:00)
[2019-12-18] MEDS: HYDROcodone/Acetamin 10/325 tab ORAL PRN (16:29)
--- NOTE | 2019-12-18 16:30 | Internal Med Progress Note ---
Subjective Date of Service: Dec 18, 2019 Physician Name John Anthony Attending Physician Levi Cary MD Current Medications Medications (Trade) Dose Ordered Sig/Alexandru Route PRN Reason Start Time Stop Time Status Last Admin Dose Admin Acetaminophen (Tylenol) 650 mg Q4H PRN ORAL Pain Scale (6-10) 12/16/19 00:15 01/15/20 00:14 Acetaminophen/ Hydrocodone Bitart ([place] 10/325) 1 tab Q4H PRN ORAL For Pain 12/16/19 12:38 12/23/19 12:37 12/17/19 21:20 Allopurinol (allopurinoL) 300 mg DAILY ORAL 12/16/19 09:00 01/15/20 08:59 12/18/19 09:15 Bisacodyl (Dulcolax) 10 mg PRN RECTAL 12/16/19 00:15 03/15/20 00:14 Dextrose/ Electrolytes 1,000 ml @ 75 mls/hr [id number] IV 12/18/19 16:00 01/17/20 15:59 12/18/19 15:48 Docusate Sodium (Colace) 100 mg TWICE A DAY ORAL 12/16/19 09:00 01/15/20 08:59 12/18/19 09:15 Epoetin Rigoberto (Epoetin Rigoberto-EPBX(NON ESRD)) 10,000 unit SUN-SUN-SUN SUBQ 12/17/19 21:00 03/16/20 20:59 12/17/19 21:08 Ferrous Sulfate (Feosol) 325 mg THREE TIMES A DAY ORAL 12/16/19 09:00 03/15/20 08:59 12/18/19 13:01 Gadobutrol (Gadavist) 7.5 mmol ONCE PRN IV radiology procedure 12/17/19 11:30 12/19/19 11:14 Lidocaine HCl (Xylocaine 1% 30ml) 30 ml NOW PRN INJ Radiology Procedure 12/18/19 09:00 12/20/19 08:48 Losartan Potassium (Cozaar) 25 mg DAILY ORAL 12/17/19 09:00 01/16/20 08:59 12/18/19 09:15 Metoprolol Succinate (Toprol XL) 100 mg DAILY ORAL 12/17/19 09:00 03/16/20 08:59 12/18/19 09:15 Polyethylene Glycol (Miralax) 238 gm ONCE ORAL 12/18/19 16:00 12/18/19 23:00 Sodium Phosphate (Fleet's Sodium Phosl Enema) 133 ml DAILYPRN PRN RECTAL CONSTIPATION 12/16/19 12:38 01/15/20 12:37 Allergies: Coded Allergies: No Known Allergies (Unverified , 02/17/19) ROS Limited/Unobtainable: No Constitutional: Reports: no symptoms HEENT: Reports: no symptoms Cardiovascular: Reports: no symptoms Respiratory: Reports: no symptoms Gastrointestinal/Abdominal: Reports: no symptoms Genitourinary: Reports: no symptoms Neurologic/Psychiatric: Reports: no symptoms Subjective 69 YO M with history of CVA and OR admitted with syncope. Cover for Int Farhad-Dr Cary. Endoscopy/colonoscopy scheduled for 12/18 Objective Last Vital Signs Date Time Temp Pulse Resp B/P (MAP) Pulse Ox O2 Delivery O2 Flow Rate FiO2 12/18/19 12:00 97.8 68 20 120/82 (95) 100 12/18/19 09:00 Room Air Laboratory Tests Test 12/18/19 06:53 White Blood Count 4.0 K/UL (4.8-10.8) L Red Blood Count 3.53 M/UL (4.70-6.10) L Hemoglobin 9.1 G/DL (14.2-18.0) L Hematocrit 29.6 % (42.0-52.0) L Mean Corpuscular Volume 84 FL (80-99) Mean Corpuscular Hemoglobin 25.7 PG (27.0-31.0) L Mean Corpuscular Hemoglobin Concent 30.6 G/DL (32.0-36.0) L Red Cell Distribution Width 25.2 % (11.6-14.8) H Platelet Count 209 K/UL (150-450) Mean Platelet Volume 5.1 FL (6.5-10.1) L Neutrophils (%) (Auto) 63.8 % (45.0-75.0) Lymphocytes (%) (Auto) 22.5 % (20.0-45.0) Monocytes (%) (Auto) 10.7 % (1.0-10.0) H Eosinophils (%) (Auto) 1.9 % (0.0-3.0) Basophils (%) (Auto) 1.1 % (0.0-2.0) Sodium Level 139 MMOL/L (136-145) Potassium Level 4.4 MMOL/L (3.5-5.1) Chloride Level 108 MMOL/L (98-107) H Carbon Dioxide Level 24 MMOL/L (21-32) Anion Gap 7 mmol/L (5-15) Blood Urea Nitrogen 14 mg/dL (7-18) Creatinine 1.1 MG/DL (0.55-1.30) Estimat Glomerular Filtration Rate > 60 mL/min (>60) Glucose Level 88 MG/DL (74-106) Calcium Level 9.2 MG/DL (8.5-10.1) Intake and Output 12/17/19 12/18/19 19:00 07:00 Intake Total 720 ml 120 ml Output Total 200 ml Balance 520 ml 120 ml Intake Oral 720 ml 120 ml Output Urine Total 200 ml # Voids 2 # Bowel Movements 1 Objective PHYSICAL EXAMINATION: GENERAL: Patient is well-developed, well-nourished male. No apparent distress. HEENT: Eyes, pupils are equal and responsive to light and accommodation. Extraocular movements are intact. NECK: Supple without lymphadenopathy. CHEST: Lungs are clear to auscultation bilaterally without wheezes or rales. CARDIOVASCULAR: Regular rhythm and rate. S1-S2 are normal without murmurs, rubs, or gallops. ABDOMINAL: Soft, nontender, and nondistended. Positive bowel sounds. No evidence of hepatosplenomegaly. Currently, no rebound or guarding noted. EXTREMITIES: Negative for clubbing, cyanosis, or edema. RECTAL/GENITAL: Not performed. NEUROLOGIC: Cranial nerves II through XII are grossly intact without focal deficits. Motor strength is 5/5 bilaterally. Deep tendon reflexes are 2+ plantar. Assessment/Plan Assessment/Plan ASSESSMENT: This is a 69-year-old male. 1. Syncopal episode. 2. Coronary artery disease. 3. Cerebrovascular disease. 4. Acute on chronic renal failure. 5. Liver mass. 6. History of hepatitis C. 7. Hypertension. 8. Chronic anemia. 9. Gout. 10. GI bleed/occult blood positive TREATMENT: 1. Syncopal episode. ?hypotension due to BP meds? A Cardiology consultation has been obtained with Dr. Herman Gonzalez. We will follow recommendations of Cardiology. Serial troponin levels = neg 2. Coronary artery disease. Patient is status post cardiac catheterization in October 2019 @ [facility] As above, a Cardiology consultation has been obtained with Dr. Herman Gonzalez. 3. Cerebrovascular disease. Patient is status post cerebrovascular accident x2. An MRI of the brain=neg acute infarct. Carotid doppler <50% stenosis 4. Renal failure. This may be secondary to dehydration versus chronic renal failure. 5. Liver mass. ?hepatocellular carcinoma? Patient is scheduled for CT guided biopsy Sun12/19/19 at [place] Follow up with [facility] hepatobiliary team on discharge. 6. Chronic hepatitis C. 7. Hypertension. Continue metoprolol and Norvasc as above. 8. Chronic anemia. Continue iron as above. 9. Gout. Continue allopurinol as above. 10. GI bleed-endoscopy/colonoscopy scheduled 12/19/19 John Anthony MD Dec 18, 2019 16:30
--- NOTE | 2019-12-18 16:30 | NUR ---
NURSE NOTES: GI check list done. Started GI prep; Polyethylene glycol 238gm (1Bottle). Patient tolerated well. Will continue to monitor.
--- NOTE | 2019-12-18 19:46 | NUR ---
HAND-OFF: Report given to Yanet ROBLES. Endorsed plan of care.
--- NOTE | 2019-12-18 19:58 | NUR ---
NURSE NOTES: Received report from TRAVIS Saleem. Patient is awake lying semi-lynn's; resting comfortably. No signs of acute distress noted; denies pain at this time. AOx4; able to make needs known. Ambulates independently. Checked IV site; leaking. Will attempt to re-insert IV access at a later time. Bed at lowest position, brakes on, siderails up x3. Call light within reach. Will continue to monitor.
[2019-12-18 20:00] VITALS: BP 125/76
[2019-12-19] VITALS (20 sets, daily range): BP systolic 102–146; BP diastolic 70–93
--- NOTE | 2019-12-19 01:21 | NUR ---
NURSE NOTES: Called Dr. Bailey to notify him that patient's stool is watery, but still dark. Awaiting callback for any further orders.
[2019-12-19] MEDS: D5 1/2NS w/KCl 20mEq 1,000 ML IV SCH (05:03)
--- NOTE | 2019-12-19 06:13 | NUR ---
NURSE NOTES: Received new order from Dr. Bailey for Fleet enema x1. Noted and carried out.
--- NOTE | 2019-12-19 07:17 | NUR ---
HAND-OFF: Report given to TRAVIS Blandon. Patient is awake lying semi-lynn's; resting comfortably. Endorsed to oncoming shift RN regarding patient's EGD and colonoscopy procedures later today; verbalized understanding.
[2019-12-19 07:37] LABS: BASOPHILS % (AUTO) 0.9 % (0.0-2.0); EOSINOPHILS % (AUTO) 2.2 % (0.0-3.0); HEMATOCRIT 31.1 % (42.0-52.0); HEMOGLOBIN 9.5 G/DL (14.2-18.0); MEAN CORPUSCULAR VOLUME 84 FL (80-99); MONOCYTES % (AUTO) 10.9 % (1.0-10.0); PLATELET COUNT 262 K/UL (150-450); RED CELL DISTRIBUTION WIDTH 25.2 % (11.6-14.8); WHITE BLOOD COUNT 4.7 K/UL (4.8-10.8)
[2019-12-19] MEDS ORDERED: Lidocaine 1% Plain 30 ml INJ SCH (07:45)
[2019-12-19] MEDS ORDERED: Fleet's Enema 133ml RECTAL SCH (08:00)
[2019-12-19] MEDS: Losartan 25mg tab ORAL SCH (08:51)
[2019-12-19] MEDS: Docusate 100mg cap ORAL SCH ×2 (08:51→17:14)
[2019-12-19] MEDS: Metoprolol Succinate XL 100mg tab ORAL SCH ×2 (08:51→08:52)
[2019-12-19 08:53] LABS: ANION GAP 11 mmol/L (5-15); BLOOD UREA NITROGEN 13 mg/dL (7-18); CARBON DIOXIDE 21 MMOL/L (21-32); CHLORIDE 107 MMOL/L (98-107); CREATININE 1.2 MG/DL (0.55-1.30); POTASSIUM 4.1 MMOL/L (3.5-5.1); SODIUM 139 MMOL/L (136-145)
--- NOTE | 2019-12-19 09:43 | NUR ---
*-*DISCHARGE PLANNING*-* PATIENT HAS BEEN REFEREED TO: [facility] P: [phone] F: [phone] ~~~~~~~~~~~~~~~~~~~~~~~~~CLINICALS FAXED~~~~~~~~~~~~~~~~~~~~~~~~~~~~~~ Addendum: 12/19/19 at 1118 by TANYA MENSAH CM DISREGARD ABOVE NOTES, WRONG PATIENT
--- NOTE | 2019-12-19 10:46 | Pre-Procedure Note/Attestation ---
Pre-Procedure Note/Attestation Complete Prior to Procedure Planned Procedure: not applicable Procedure Narrative: esophagogastroduodenoscopy and colonoscopy Indications for Procedure Pre-Operative Diagnosis: gib, esophageal varices Attestation I attest that I discussed the nature of the procedure; its benefits; risks and complications; and alternatives (and the risks and benefits of such alternatives ), prior to the procedure, with the patient (or the patient's legal sales development representative). I attest that, if there was a reasonable possibility of needing a blood transfusion, the patient (or the patient's legal sales development representative) was given the [facility] standardized written summary, pursuant to the Jesse Amy Blood Safety Act ([place] Health and Safety Code # 1645, as amended). I attest that I re-evaluated the patient just prior to the surgery and that there has been no change in the patient's H&P, except as documented below: Slick Bailey MD December 19, 2019 10:46
--- NOTE | 2019-12-19 11:00 | Pulmonology Progress Note ---
Assessment/Plan Problems: (1) Liver mass (2) Positive occult stool blood test (3) Acute encephalopathy (4) Severe anemia (5) Cirrhosis (6) Hepatitis C (7) Gout (8) Hypertension (9) Portal hypertension Assessment/Plan awaiting EGD results liver biopsy done, pathology pending MRI of liver done: * 6.5 cm mass in the hepatic dome with imaging characteristics highly concerning for hepatocellular carcinoma. * Cirrhosis with sequela of portal hypertension including splenomegaly blood smear reviewed by pathologist: LEUCOPENIA WITH SCATTERED REACTIVE/ATYPICAL LYMPHOCYTES NORMOCYTIC HYPOCHROMIC ANEMIA WITH ANISOCYTOSIS monitor BP symptomatic treatment CEA is slightly increased. Subjective ROS Limited/Unobtainable: No Constitutional: Reports: no symptoms HEENT: Repors: no symptoms Respiratory: Reports: no symptoms Allergies: Coded Allergies: No Known Allergies (Unverified , 02/17/19) Objective Last 24 Hour Vital Signs Date Time Temp Pulse Resp B/P (MAP) Pulse Ox O2 Delivery O2 Flow Rate FiO2 12/19/19 09:00 Room Air 12/19/19 08:52 70 109/70 12/19/19 08:51 109/70 12/19/19 08:48 98.6 70 18 109/70 (83) 98 12/19/19 07:56 71 12/19/19 04:00 76 12/19/19 04:00 98.6 76 18 132/82 (99) 98 12/19/19 00:00 68 12/19/19 00:00 97.2 68 18 113/83 (93) 98 12/18/19 21:00 Room Air 12/18/19 20:00 67 12/18/19 20:00 96.4 90 16 125/76 (92) 95 12/18/19 16:00 97.8 70 20 124/81 (95) 98 12/18/19 16:00 79 12/18/19 12:00 97.8 68 20 120/82 (95) 100 12/18/19 12:00 68 Intake and Output 12/18/19 12/19/19 19:00 07:00 Intake Total 1763 ml 240 ml Output Total 200 ml Balance 1563 ml 240 ml Intake Oral 1763 ml 240 ml Output Urine Total 200 ml # Voids 3 # Bowel Movements 4 8 General Appearance: WD/WN HEENT: atraumatic, PERRL Respiratory/Chest: chest wall non-tender Cardiovascular: normal peripheral pulses, normal rate Abdomen: normal bowel sounds, soft, non tender, no organomegaly Genitourinary: normal external genitalia 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/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 grossly normal Laboratory Tests 12/19/19 06:47: White Blood Count 4.7L, Red Blood Count 3.70L, Hemoglobin 9.5L, Hematocrit 31.1L , Mean Corpuscular Volume 84, Mean Corpuscular Hemoglobin 25.6L, Mean Corpuscular Hemoglobin Concent 30.5L, Red Cell Distribution Width 25.2H, Platelet Count 262, Mean Platelet Volume 5.1L, Neutrophils (%) (Auto) 61.0, Lymphocytes (%) (Auto) 25.0, Monocytes (%) (Auto) 10.9H, Eosinophils (%) (Auto) 2.2, Basophils (%) (Auto) 0.9, Sodium Level 139, Potassium Level 4.1, Chloride Level 107, Carbon Dioxide Level 21, Anion Gap 11, Blood Urea Nitrogen 13, Creatinine 1.2, Estimat Glomerular Filtration Rate > 60, Glucose Level 92, Calcium Level 9.0 Current Medications Medications (Trade) Dose Ordered Sig/Alexandru Route PRN Reason Start Time Stop Time Status Last Admin Dose Admin Acetaminophen (Tylenol) 650 mg Q4H PRN ORAL Pain Scale (6-10) 12/16/19 00:15 01/15/20 00:14 Acetaminophen/ Hydrocodone Bitart ([place] 10/325) 1 tab Q4H PRN ORAL For Pain 12/16/19 12:38 12/23/19 12:37 12/18/19 16:29 Allopurinol (allopurinoL) 300 mg DAILY ORAL 12/16/19 09:00 01/15/20 08:59 12/19/19 08:51 Bisacodyl (Dulcolax) 10 mg PRN RECTAL 12/16/19 00:15 03/15/20 00:14 Dextrose/ Electrolytes 1,000 ml @ 75 mls/hr [id number] IV 12/18/19 16:00 01/17/20 15:59 12/18/19 15:48 Docusate Sodium (Colace) 100 mg TWICE A DAY ORAL 12/16/19 09:00 01/15/20 08:59 12/19/19 08:51 Epoetin Rigoberto (Epoetin Rigoberto-EPBX(NON ESRD)) 10,000 unit SUN-SUN-SUN SUBQ 12/17/19 21:00 03/16/20 20:59 12/17/19 21:08 Ferrous Sulfate (Feosol) 325 mg THREE TIMES A DAY ORAL 12/16/19 09:00 03/15/20 08:59 12/19/19 08:51 Gadobutrol (Gadavist) 7.5 mmol ONCE PRN IV radiology procedure 12/17/19 11:30 12/19/19 11:14 Lidocaine HCl (Xylocaine 1% 30ml) 30 ml NOW PRN INJ Radiology Procedure 12/18/19 09:00 12/20/19 08:48 Lidocaine HCl (Xylocaine 1% 30ml) 30 ml ONCE INJ 12/19/19 07:45 12/19/19 23:00 Losartan Potassium (Cozaar) 25 mg DAILY ORAL 12/17/19 09:00 01/16/20 08:59 12/18/19 09:15 Metoprolol Succinate (Toprol XL) 100 mg DAILY ORAL 12/17/19 09:00 03/16/20 08:59 12/18/19 09:15 Sodium Phosphate (Fleet's Sodium Phosl Enema) 133 ml DAILYPRN PRN RECTAL CONSTIPATION 12/16/19 12:38 01/15/20 12:37 Edgar Max MD December 19, 2019 11:00
--- NOTE | 2019-12-19 11:10 | Anethesia Preoperative Eval ---
Anesthesia Pre-op PMH/ROS General Date of Evaluation: December 19, 2019 Time of Evaluation: 11:25 Anesthesiologist: marti ASA Score: ASA 4 Mallampati Score Class I : Soft palate, uvula, fauces, pillars visible Class II: Soft palate, uvula, fauces visible Class III: Soft palate, base of uvula visible Class IV: Only hard plate visible Mallampati Classification: Class II Surgeon: alex Diagnosis: gi bleed Surgical Procedure: egd/colonoscopy Anesthesia History: none Social History: alcohol use Family History: no anesthesia problems Allergies: Coded Allergies: No Known Allergies (Unverified , 02/17/19) Medications: see eMAR Patient NPO?: Yes Past Medical History Cardiovascular: Reports: HTN, [place] Pulmonary: Reports: other - pulmonary htn Gastrointestinal/Genitourinary: Reports: other - cirrhosis, liver mass, gi bleed Neurologic/Psychiatric: Reports: CVA, other - hx/ Hematology/Immune: Reports: anemia Anesthesia Pre-op Phys. Exam Physician Exam Last Vital Signs Date Time Temp Pulse Resp B/P (MAP) Pulse Ox O2 Delivery O2 Flow Rate FiO2 12/19/19 09:00 Room Air 12/19/19 08:52 70 109/70 12/19/19 08:48 98.6 18 98 Constitutional: NAD Neurologic: CN 2-12 intact Cardiovascular: RRR Respiratory: CTA Gastrointestinal: S/NT/ND Airway Exam Mallampati Score: Class II MO: limited Neck: flexible TMD: 2fb ROM: limited Anesthesia Pre-op A/P Labs Hematology Test 12/19/19 06:47 White Blood Count 4.7 K/UL (4.8-10.8) L Red Blood Count 3.70 M/UL (4.70-6.10) L Hemoglobin 9.5 G/DL (14.2-18.0) L Hematocrit 31.1 % (42.0-52.0) L Mean Corpuscular Volume 84 FL (80-99) Mean Corpuscular Hemoglobin 25.6 PG (27.0-31.0) L Mean Corpuscular Hemoglobin Concent 30.5 G/DL (32.0-36.0) L Red Cell Distribution Width 25.2 % (11.6-14.8) H Platelet Count 262 K/UL (150-450) Mean Platelet Volume 5.1 FL (6.5-10.1) L Neutrophils (%) (Auto) 61.0 % (45.0-75.0) Lymphocytes (%) (Auto) 25.0 % (20.0-45.0) Monocytes (%) (Auto) 10.9 % (1.0-10.0) H Eosinophils (%) (Auto) 2.2 % (0.0-3.0) Basophils (%) (Auto) 0.9 % (0.0-2.0) Chemistry Test 12/19/19 06:47 Sodium Level 139 MMOL/L (136-145) Potassium Level 4.1 MMOL/L (3.5-5.1) Chloride Level 107 MMOL/L (98-107) Carbon Dioxide Level 21 MMOL/L (21-32) Anion Gap 11 mmol/L (5-15) Blood Urea Nitrogen 13 mg/dL (7-18) Creatinine 1.2 MG/DL (0.55-1.30) Estimat Glomerular Filtration Rate > 60 mL/min (>60) Glucose Level 92 MG/DL (74-106) Calcium Level 9.0 MG/DL (8.5-10.1) Risk Assessment & Plan Assessment: [email or web address] Plan: mac Status Change Before Surgery: No Pre-Antibiotics Drug: Preethi Paris MD December 19, 2019 11:10
[2019-12-19] MEDS ORDERED: NS 500ML IVPB ONE (11:26)
--- NOTE | 2019-12-19 11:58 | Endoscopy Procedure Note ---
Endoscopy Procedure Note General Indication for Procedure: gib Procedures Performed: EGD, colonoscopy Operative Findings/Diagnosis: gastritis, diverticulosis Specimen: yes Pt Tolerated Procedure Well: Yes Estimated Blood Loss: none Anesthesia Anesthesiologist: fransisco Anesthesia: general, MAC Inserted Devices Implant(s) used?: No Quality Quality of Bowel Preparation: Fair Did scope reach the cecum?: Yes Was there any complications?: No GI Core Measures 50 yrs or older w/o bx or poly: Not Applicable 10yrs. F/U recommended: Not Applicable Slick Bailey MD December 19, 2019 11:58
--- NOTE | 2019-12-19 12:21 | Immediate Post-Op Evaluation ---
Immediate Post-Op Evalulation Immediate Post-Op Evalulation Procedure: egd/colonoscopy w/bx Date of Evaluation: December 19, 2019 Time of Evaluation: 12:13 IV Fluids: 300ml 0.9ns Blood Products: none Estimated Blood Loss: negligible Blood Pressure Systolic: 84 Blood Pressure Diastolic: 56 Pulse Rate: 86 Respiratory Rate: 18 O2 Sat by Pulse Oximetry: 100 Temperature (Fahrenheit): 98.5 Pain Score (1-10): 0 Nausea: No Vomiting: No Complications none Patient Status: awake, reacts, patent Hydration Status: adequate Drug: Preethi Paris MD December 19, 2019 12:21
--- NOTE | 2019-12-19 12:22 | 48 Hour Post Anesthesia Eval ---
Post Anesthesia Evaluation Procedure: egd/colonoscopy w/bx Date of Evaluation: December 19, 2019 Time of Evaluation: 12:15 Blood Pressure Systolic: 107 0: 83 Pulse Rate: 87 Respiratory Rate: 18 Temperature (Fahrenheit): 98.5 O2 Sat by Pulse Oximetry: 100 Airway: patent Nausea: No Vomiting: No Pain Intensity: 0 Hydration Status: adequate Cardiopulmonary Status: stable Mental Status/LOC: patient returned to baseline Post-Anesthesia Complications: none Follow-up care needed: N/A Preethi oCffman MD December 19, 2019 12:22
[2019-12-19] MEDS ORDERED: Midazolam 2mg/2ml Inj ONE (12:46)
[2019-12-19] MEDS ORDERED: fentaNYL 100 mcg/2 mL IV ONE (12:46)
[2019-12-19] MEDS ORDERED: Lidocaine 1% Plain 30 ml INJ PRN (12:57)
--- NOTE | 2019-12-19 13:12 | NUR ---
CASE MANAGEMENT:REVIEW 12/19/19 SI: SYNCOPE. AC/CHR RENAL FAILURE CIRRHOSIS. HEP C. CHEST PAIN 98.6 70 18 109/70 98% ON RA H/H-9.5/31.1 IS: IVF@75/HR COZAAR PO QD ~ HELD TOPROL XL PO QD ~ HELD ALLOPURINOL PO QD IRON PO TID : TELEMETRY STATUS DCP: FROM HOME PLAN: EGD/COLONOSCOPY TODAY US LIVER BIOPSY ORDERED
--- NOTE | 2019-12-19 13:22 | NUR ---
DISCHARGE PLANNING PATIENT IS FROM HOME AND PLAN IS FOR HIM TO RETURN HOME S/P EGD/COLONOSCOPY AND LIVER BIOPSY TODAY AWAIT DISCHARGE ORDER
--- NOTE | 2019-12-19 13:50 | Pre-Procedure Note/Attestation ---
Pre-Procedure Note/Attestation Complete Prior to Procedure Planned Procedure: not applicable Procedure Narrative: US guided liver biopsy Indications for Procedure Pre-Operative Diagnosis: Liver mass Attestation I attest that I discussed the nature of the procedure; its benefits; risks and complications; and alternatives (and the risks and benefits of such alternatives ), prior to the procedure, with the patient (or the patient's legal technical support representative). I attest that, if there was a reasonable possibility of needing a blood transfusion, the patient (or the patient's legal technical support representative) was given the [facility] standardized written summary, pursuant to the Jesse Amy Blood Safety Act ([place] Health and Safety Code # 1645, as amended). I attest that I re-evaluated the patient just prior to the surgery and that there has been no change in the patient's H&P, except as documented below: Miguel George MD December 19, 2019 13:50
--- NOTE | 2019-12-19 14:38 | Brief Operative Note ---
Immediate Post Operative Note Operative Note Pre-op Diagnosis: Liver mass Procedure: US guided liver biopsy Post-op Diagnosis: same as pre-op Surgeon: Talat Burch Anesthesia: local, moderate sedation Specimen: yes - 4 20G cores Complications: none Condition: stable Fluids: none Implant(s) used?: No Miguel Burch MD December 19, 2019 14:38
--- NOTE | 2019-12-19 14:40 | Moderate Sedation - Procedural ---
Moderate Sedation HPI Home Medication Reported Medications Aspirin* (ASPIR 81*) 81 Mg Tablet.dr, 81 MG ORAL DAILY for heart health, TAB 12/15/19 Losartan Potassium (LOSARTAN POTASSIUM) 100 Mg Tablet, 50 MG ORAL DAILY for bp, TAB 12/15/19 Amoxicillin (AMOXICILLIN) 125 Mg Tab.chew, 500 MG ORAL BID for abx, TAB 12/15/19 Acetaminophen* (ACETAMINOPHEN 325MG TABLET*) 325 Mg Tablet, 650 MG ORAL Q4H PRN for Pain Scale (6-10), TAB 02/05/19 Sennosides/Docusate Sodium (SENNA S TABLET) 1 Each Tablet, 2 EACH PO QHS, TAB 02/05/19 Epoetin Rigoberto (PROCRIT) 10,000 Unit/1 Ml Vial, 39416 UNIT SUBQ 3XW, VIAL 02/05/19 Amino Acids/Protein Hydrolys (PRO-STAT LIQUID) 30 Ml Liquid.pkt, 30 ML ORAL TWICE A DAY, ML 02/05/19 Metoprolol Tartrate* (METOPROLOL TARTRATE*) 100 Mg Tablet, 100 MG ORAL EVERY 12 HOURS, TAB 02/05/19 Lisinopril* (LISINOPRIL*) 10 Mg Tablet, 10 MG ORAL DAILY, TAB 02/05/19 Na Phos,M-B/Na Phos,Di-Ba* (FLEET ENEMA*) 133 Ml Enema, 133 ML RECTAL PRN, ML 0 Refills 02/05/19 Ferrous Sulfate (FERROUS SULFATE) 220 Mg/5 Ml Solution, 7.5 ML PO TID 02/05/19 Bisacodyl (DULCOLAX) 10 Mg Supp.rect, 10 MG RC PRN, SUPP 02/05/19 Cranberry Extract (CRANBERRY) 425 Mg Capsule, 850 MG PO DAILY, CAP 02/05/19 Docusate Sodium* (COLACE*) 100 Mg Capsule, 100 MG ORAL TWICE A DAY, CAP 02/05/19 Amlodipine Besylate* (AMLODIPINE BESYLATE*) 5 Mg Tablet, 5 MG ORAL DAILY, TAB 02/05/19 Allopurinol* (ALLOPURINOL*) 300 Mg Tablet, 300 MG ORAL DAILY, TAB 05/04/16 Patient History Allergies: Coded Allergies: No Known Allergies (Unverified , 02/17/19) Pre-Procedural Mod Sedation Date: December 19, 2019 Pre-Assessment Time: 13:50 Pre-Sedation Assessment: Eval. Immed. Prior to Sed Airway Assessment (Malampati): III Heart: normal Lungs: normal Abdomen: normal Evaluation Hx of untoward rxns to mod sed: No Procedures/Plans: Radiology Plan for Moderate Sedation: Fentanyl ASA Score: II Informed Consent The nature of the procedure/sedation; its benefits; risks and complications; and alternatives (and the risks and benefits of such alternatives) were discussed with the patient (or their legal telemarketing sales representative), prior to the procedure. All questions were answered to the patient's (or their legal telemarketing sales representative's) satisfaction and the patient (or their legal telemarketing sales representative) gave informed consent to the procedure. I attest that I re-evaluated the patient just prior to the surgery and that there has been no change in the patient's H&P, except as documented below: Post Procedure Assessment Post Procedure TIme: 14:25 Communication: No Apparent Limitation Mental Status: Awake Respiration: Unlabored Skin Condition: WNL Adomen: WNL Nausea: NO Vomiting: NO Miguel George MD December 19, 2019 14:40
--- NOTE | 2019-12-19 16:15 | Procedure Note ---
DATE OF PROCEDURE: 12/19/2019 SURGEON: Slick Bailey MD. PROCEDURE: Upper endoscopy with biopsy and colonoscopy. ANESTHESIA: Per Dr. Zhao. INSTRUMENT: Olympus adult flexible upper endoscope and colonoscope. INDICATION: GI bleeding. REASON FOR PROCEDURE: The procedure, risks, benefits, and possible consequences, including hemorrhage, aspiration, perforation and infection, and alternative treatments, were explained to the patient/legal guardian by Dr. Slick Bailey and the patient/legal guardian understood and accepted these risks. DESCRIPTION OF PROCEDURE: After informed consent was obtained and the patient was adequately sedated, Olympus upper endoscope was advanced from mouth into the second portion of the duodenum and retroflexion was performed in the stomach. The patient had minimum esophageal varices without any stigmata of bleeding. At the GE junction, there was evidence of two clips in place, most probably from prior endoscopies and hemostasis. In the stomach, there was diffuse atrophic gastritis. Random biopsy from antrum was obtained to rule out H. pylori infection. There was some changes in the prepyloric region suspicious for GAVE. Biopsy from this area was obtained. The rest of the examination grossly looked within normal limits. At this time, the upper endoscope was retrieved and the patient was turned over for colonoscopy. First, rectal exam was performed, which was positive for internal hemorrhoids. Then, the scope was advanced from rectum into the cecum documented by appendiceal orifice, ileocecal valve, and right upper quadrant palpation. Quality of prep overall was good except for cecum and ascending colon area which was covered with dark color stool. The patient had no evidence of any active bleeding at this time, had some evidence of diverticulosis both in the left and right colon but mainly in the left colon. No obvious blood or blood product were seen. No polyps. No mass was seen. Retroflexion of rectum showed evidence of internal hemorrhoids. SUMMARY OF FINDINGS: 1. Small esophageal varices. 2. Clips at the GE junction from prior endoscopy procedures. 3. Atrophic gastritis, status post biopsy. 4. 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 5. Diverticulosis. 6. Internal hemorrhoids. RECOMMENDATIONS: 1. Resume diet. 2. Follow labs. 3. The patient is going for liver biopsy today for the liver mass. I want to thank, Dr. Levi Cary, for this kind referral. Slick Jeanette Bailey DR: Celine JOB#: [id number] CC: Levi Cary M.D.; Fax#: [phone]
--- NOTE | 2019-12-19 16:27 | Diagnostic Imaging Report ---
Indication: Liver mass Technique: Prior imaging studies reviewed. Informed consent obtained prior present of the procedure. Procedural timeout performed. Ultrasound used to localize optimal puncture site. Skin was sterilely prepped and draped. It was hoped initially to use a subcostal approach, but the lesion was too remote for such to be performed successfully. Therefore an intercostal approach was utilized.. Local anesthesia with 1% lidocaine. Under direct sonographic supervision, a 19-gauge guide needle was directed to the periphery of the target lesion. Total of 4 core specimens obtained using coaxially inserted 20-gauge automated biopsy gun. Specimens were placed in formalin, sent to pathology. The patient tolerated the procedure well, without immediate complication. Patient given that fentanyl for intraprocedural analgesia under monitoring by nursing Comparison: Reference made to abdomen MRI dated 12/17/2019, abdominal sonogram dated 12/16/2019 Findings: Intraprocedural images document placement of the guide needle and biopsy gun at the superolateral periphery of the target lesion Impression: Biopsy of right lobe liver mass, as described
[2019-12-19] MEDS: HYDROcodone/Acetamin 10/325 tab ORAL PRN (16:30)
--- NOTE | 2019-12-19 19:46 | NUR ---
NURSE NOTES: RECEIVED PATIENT LYING IN BED, AWAKE, ALERT/ORIENTED X3, DENIES PAIN, NO SIGNS AND SYMPTOMS OF ACUTE CARDIO RESPIRATORY DISTRESS/SHORTNESS OF BREATH, DENIES CHEST PAIN, NO SYNCOPE EPISODE, CONTINUE ON MANAGER CODING. S/P EGD/GASTRITIS/HEMORRHOID/DIVERTICULITIS, DENIES GI DISCOMFORT, DIARRHEA SUBSIDING, CONTINENT, BRP. SIDE RAILS UP X2 FOR MOBILITY, BED IN LOWEST POSITION FOR SAFETY, ENCOURAGED PATIENT TO UTILIZE CALL LIGHT FOR ASSISTANCE, VERBALIZED UNDERSTANDING. CONTINUE WITH CURRENT PLAN OF CARE. NAD.
[2019-12-19] MEDS: Epoetin Alfa-EPBX (NON ESRD)10,000 unit/ml vial SUBQ SCH (21:14)
--- NOTE | 2019-12-19 23:10 | Internal Med Progress Note ---
Subjective Physician Name Levi Cary Attending Physician Levi Cary MD Current Medications Medications (Trade) Dose Ordered Sig/Alexandru Route PRN Reason Start Time Stop Time Status Last Admin Dose Admin Acetaminophen (Tylenol) 650 mg Q4H PRN ORAL Pain Scale (6-10) 12/16/19 00:15 01/15/20 00:14 Acetaminophen/ Hydrocodone Bitart ([place] 10/325) 1 tab Q4H PRN ORAL For Pain 12/16/19 12:38 12/23/19 12:37 12/19/19 16:30 Allopurinol (allopurinoL) 300 mg DAILY ORAL 12/16/19 09:00 01/15/20 08:59 12/19/19 08:51 Bisacodyl (Dulcolax) 10 mg PRN RECTAL 12/16/19 00:15 03/15/20 00:14 Docusate Sodium (Colace) 100 mg TWICE A DAY ORAL 12/16/19 09:00 01/15/20 08:59 12/19/19 17:14 Epoetin Rigoberto (Epoetin Rigoberto-EPBX(NON ESRD)) 10,000 unit SUN-SUN-SUN SUBQ 12/17/19 21:00 03/16/20 20:59 12/19/19 21:14 Ferrous Sulfate (Feosol) 325 mg THREE TIMES A DAY ORAL 12/16/19 09:00 03/15/20 08:59 12/19/19 17:14 Lidocaine HCl (Xylocaine 1% 30ml) 30 ml NOW PRN INJ Radiology Procedure 12/18/19 09:00 12/20/19 08:48 Lidocaine HCl (Xylocaine 1% 30ml) 30 ml ONCE PRN INJ PROCEDURE 12/19/19 12:57 12/19/19 23:59 Losartan Potassium (Cozaar) 25 mg DAILY ORAL 12/17/19 09:00 01/16/20 08:59 12/18/19 09:15 Metoprolol Succinate (Toprol XL) 100 mg DAILY ORAL 12/17/19 09:00 03/16/20 08:59 12/18/19 09:15 Sodium Phosphate (Fleet's Sodium Phosl Enema) 133 ml DAILYPRN PRN RECTAL CONSTIPATION 12/16/19 12:38 01/15/20 12:37 Allergies: Coded Allergies: No Known Allergies (Unverified , 02/17/19) Subjective awake, alert, responsive, No CP or SOB, feeling "Good". Objective Last Vital Signs Date Time Temp Pulse Resp B/P (MAP) Pulse Ox O2 Delivery O2 Flow Rate FiO2 12/19/19 20:27 Room Air 12/19/19 20:00 97.5 97 18 121/80 (94) 99 12/19/19 15:43 3.0 Laboratory Tests Test 12/19/19 06:47 White Blood Count 4.7 K/UL (4.8-10.8) L Red Blood Count 3.70 M/UL (4.70-6.10) L Hemoglobin 9.5 G/DL (14.2-18.0) L Hematocrit 31.1 % (42.0-52.0) L Mean Corpuscular Volume 84 FL (80-99) Mean Corpuscular Hemoglobin 25.6 PG (27.0-31.0) L Mean Corpuscular Hemoglobin Concent 30.5 G/DL (32.0-36.0) L Red Cell Distribution Width 25.2 % (11.6-14.8) H Platelet Count 262 K/UL (150-450) Mean Platelet Volume 5.1 FL (6.5-10.1) L Neutrophils (%) (Auto) 61.0 % (45.0-75.0) Lymphocytes (%) (Auto) 25.0 % (20.0-45.0) Monocytes (%) (Auto) 10.9 % (1.0-10.0) H Eosinophils (%) (Auto) 2.2 % (0.0-3.0) Basophils (%) (Auto) 0.9 % (0.0-2.0) Sodium Level 139 MMOL/L (136-145) Potassium Level 4.1 MMOL/L (3.5-5.1) Chloride Level 107 MMOL/L (98-107) Carbon Dioxide Level 21 MMOL/L (21-32) Anion Gap 11 mmol/L (5-15) Blood Urea Nitrogen 13 mg/dL (7-18) Creatinine 1.2 MG/DL (0.55-1.30) Estimat Glomerular Filtration Rate > 60 mL/min (>60) Glucose Level 92 MG/DL (74-106) Calcium Level 9.0 MG/DL (8.5-10.1) Intake and Output 12/18/19 12/19/19 19:00 07:00 Intake Total 1763 ml 240 ml Output Total 200 ml Balance 1563 ml 240 ml Intake Oral 1763 ml 240 ml Output Urine Total 200 ml # Voids 3 # Bowel Movements 4 8 Objective General: No acute distress, awake and alert HEENT: NCAT, sclera anicteric, PERRL, EOMI. Neck: Supple, no significant jugular venous distention, Lungs: Good inspiratory effort, clear to auscultation bilaterally, no Wheeze or Rales. Heart: Regular rate and rhythm, normal S1/S2, no murmurs Abdomen: soft, nontender, nondistended. Normoactive bowel sounds. / Rectal: Refused and deferred. Extremities: No Cyanosis , clubbing or edema. Neuro: A&O x 3, Able to move all extremities Skin: warm, no rashes or lesions Psych: Normal mood and affect Assessment/Plan Assessment/Plan (1) Liver mass (2) Positive occult stool blood test (3) Acute encephalopathy (4) Severe anemia (5) Cirrhosis (6) Hepatitis C (7) (8) Hypertension (9) 1. Syncopal episode. 2. Coronary artery disease. 3. Cerebrovascular disease. 4. Acute on chronic renal failure. 5. Liver mass. 6. History of hepatitis C. 7. Hypertension. 8. Chronic anemia. 9. Gout. 10. GI bleed/occult blood positive 11. Portal hypertension TREATMENT: 1. Syncopal episode. Poaaible due to hypotension due to BP meds induced. A Cardiology consultation has been obtained with Dr. Herman Gonzalez. We will follow recommendations of Cardiology. Serial troponin levels = neg 2. Coronary artery disease. Patient is status post cardiac catheterization in October 2019 @ [facility] As above, a Cardiology consultation has been obtained with Dr. Herman Gonzalez. 3. Cerebrovascular disease. Patient is status post cerebrovascular accident x2. An MRI of the brain=neg acute infarct. Carotid doppler <50% stenosis 4. Renal failure. This may be secondary to dehydration versus chronic renal failure. 5. Liver mass. Possible hepatocellular carcinoma, US guided biopsy 12/19/19 at [place] result pending. Follow up with [facility] hepatobiliary team on discharge. 6. Chronic hepatitis C. 7. Hypertension. Continue metoprolol and Norvasc as above. 8. Chronic anemia. Continue iron as above. 9. Gout. Continue allopurinol as above. 10. GI bleed-endoscopy/colonoscopy (12/19/19): Gastritis and diverticulosis MRI of liver done: * 6.5 cm mass in the hepatic dome with imaging characteristics highly concerning for hepatocellular carcinoma. * Cirrhosis with sequela of portal hypertension including splenomegaly Levi Cary MD December 19, 2019 23:10
[2019-12-20] VITALS: BP 129/74
[2019-12-20] MEDS: HYDROcodone/Acetamin 10/325 tab ORAL PRN ×3 (03:09→23:17)
[2019-12-20 04:00] VITALS: BP 117/80
--- NOTE | 2019-12-20 06:33 | NUR ---
NURSE NOTES: RESTED WELL, NO SIGNIFICANT CHANGE OF CONDITION NOTED THROUGHOUT THE NIGHT. SAFETY MAINTAINED. NAD.
--- NOTE | 2019-12-20 06:38 | General Progress Note ---
Assessment/Plan Assessment/Plan: 1. History of hepatitis C cirrhosis. 2. Liver mass 3. CVA. 4. Coronary artery disease and cardiac cath in October 2019. 5. Hypertension. 6. Gout. 7. Anemia. 8. GIB [facility] records reviewed patient has stool ob positive at [facility] too no GI procedures were done MRI reviewed s/p EGD and colonoscopy: SUMMARY OF FINDINGS: 1. Small esophageal varices. 2. Clips at the GE junction from prior endoscopy procedures. 3. Atrophic gastritis, status post biopsy. 4. 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 5. Diverticulosis. 6. Internal hemorrhoids. s/p CT guided biopsy of liver mass fu path Subjective Allergies: Coded Allergies: No Known Allergies (Unverified , 02/17/19) Objective Last 24 Hour Vital Signs Date Time Temp Pulse Resp B/P (MAP) Pulse Ox O2 Delivery O2 Flow Rate FiO2 12/20/19 04:00 97.7 82 18 117/80 (92) 99 12/20/19 04:00 75 12/20/19 03:39 97.7 12/20/19 00:00 97.2 91 18 129/74 (92) 98 12/20/19 00:00 77 12/19/19 20:27 Room Air 12/19/19 20:00 97.5 97 18 121/80 (94) 99 12/19/19 20:00 97 12/19/19 17:00 98.0 12/19/19 16:00 98.0 82 18 130/86 (101) 100 12/19/19 16:00 80 12/19/19 15:43 86 18 3.0 12/19/19 14:40 98.1 82 18 121/74 98 Room Air 12/19/19 14:35 76 18 125/81 100 Room Air 12/19/19 14:30 84 18 131/86 100 Nasal Cannula 1 12/19/19 14:30 98.0 84 18 131/86 (101) 100 12/19/19 14:25 78 18 133/91 100 Nasal Cannula 3 12/19/19 14:25 98.0 78 18 133/91 (105) 100 12/19/19 14:20 82 18 146/92 (110) 100 12/19/19 14:20 98.0 82 18 146/92 100 Nasal Cannula 3 12/19/19 14:19 98.0 76 18 100 Nasal Cannula 3 86 100 12/19/19 14:15 79 18 135/91 (106) 100 12/19/19 14:10 83 18 129/90 (103) 100 12/19/19 14:05 86 18 119/82 (94) 100 12/19/19 14:00 98.0 86 18 129/93 (105) 98 12/19/19 13:19 80 12/19/19 12:22 87 18 100 12/19/19 12:21 86 18 100 12/19/19 12:20 98.1 84 18 107/77 100 Nasal Cannula 3 12/19/19 12:11 86 18 105/82 100 Nasal Cannula 3 12/19/19 12:06 85 17 107/83 100 Nasal Cannula 3 12/19/19 12:01 98.5 86 18 102/72 100 Nasal Cannula 3 12/19/19 09:00 Room Air 12/19/19 08:52 70 109/70 12/19/19 08:51 109/70 12/19/19 08:48 98.6 70 18 109/70 (83) 98 12/19/19 07:56 71 Intake and Output 12/19/19 12/20/19 19:00 07:00 Intake Total 1200 ml 360 ml Output Total 1 ml Balance 1199 ml 360 ml Intake Oral 700 ml 360 ml IV Total 500 ml Estimated Blood Loss 1 ml # Voids 2 # Bowel Movements 3 2 Laboratory Tests 12/19/19 06:47: White Blood Count 4.7L, Red Blood Count 3.70L, Hemoglobin 9.5L, Hematocrit 31.1L , Mean Corpuscular Volume 84, Mean Corpuscular Hemoglobin 25.6L, Mean Corpuscular Hemoglobin Concent 30.5L, Red Cell Distribution Width 25.2H, Platelet Count 262, Mean Platelet Volume 5.1L, Neutrophils (%) (Auto) 61.0, Lymphocytes (%) (Auto) 25.0, Monocytes (%) (Auto) 10.9H, Eosinophils (%) (Auto) 2.2, Basophils (%) (Auto) 0.9, Sodium Level 139, Potassium Level 4.1, Chloride Level 107, Carbon Dioxide Level 21, Anion Gap 11, Blood Urea Nitrogen 13, Creatinine 1.2, Estimat Glomerular Filtration Rate > 60, Glucose Level 92, Calcium Level 9.0 Height (Feet): 5 Height (Inches): 5.00 Weight (Pounds): 163 General Appearance: no apparent distress EENT: normal ENT inspection Neck: supple Cardiovascular: normal rate Respiratory/Chest: decreased breath sounds Abdomen: normal bowel sounds, non tender, soft Extremities: non-tender Slick Bailey MD December 20, 2019 06:38
--- NOTE | 2019-12-20 07:30 | NUR ---
HAND-OFF: Report given to TRAVIS HOFF.
--- NOTE | 2019-12-20 07:30 | NUR ---
HAND-OFF: Report given to TRAVIS HOFF.
--- NOTE | 2019-12-20 07:44 | NUR ---
NURSE NOTES: Received patient from Melissa Baltazar. Patient is awake sitting comfortably in bed. NO complain of pain or discomfort at this time. Fall precautions in place. Call cadena within patients reach. Will continue plan of care.
[2019-12-20 08:00] VITALS: BP 103/68
[2019-12-20] MEDS: Metoprolol Succinate XL 100mg tab ORAL SCH (08:36)
[2019-12-20] MEDS: Docusate 100mg cap ORAL SCH ×2 (08:36→17:40)
[2019-12-20] MEDS: Losartan 25mg tab ORAL SCH (08:37)
[2019-12-20 09:16] LABS: EOSINOPHILS % (AUTO) 1.7 % (0.0-3.0); HEMATOCRIT 31.2 % (42.0-52.0); HEMOGLOBIN 9.5 G/DL (14.2-18.0); LYMPHOCYTES % (AUTO) 30.4 % (20.0-45.0); MEAN CORPUSCULAR VOLUME 86 FL (80-99); MONOCYTES % (AUTO) 9.5 % (1.0-10.0); NEUTROPHILS % (AUTO) 57.5 % (45.0-75.0); PLATELET COUNT 279 K/UL (150-450); RED BLOOD COUNT 3.61 M/UL (4.70-6.10); RED CELL DISTRIBUTION WIDTH 26.6 % (11.6-14.8); WHITE BLOOD COUNT 4.8 K/UL (4.8-10.8)
--- NOTE | 2019-12-20 10:29 | Pulmonology Progress Note ---
Assessment/Plan Assessment/Plan ASSESSMENT Syncopal episode, likely due to hypotension Cerebrovascular disease with history of CVA x2 Coronary artery disease ,status post PR Acute on chronic renal failure Liver mass , status post biopsy on 12/18 Hepatitis C Portal hypertension Cirrhosis Cholelithiasis Diverticulosis Hypertension Chronic anemia Stool for OB + Status post EGD and colonoscopy Acute encephalopathy -resolved Gout PLAN OF CARE tele Echo with pEF troponin negative, EKG revealed no acute ischemic changes , pt ruled out for acute PR BP improved in [place] in few hours, suggestive of probable hypotension being the cause of syncope-as per cardio no orthostatic changes patient s/p IV hydration CT [facility] at [facility] Carotid duplex -> no hemodynamically significant stenosis Brain MRI -> no evidence of acute intracranial pathology BP management with BB and ARB, BP remained stable titrate O2 to keep sat above 92%, pulm hygiene as needed stool for OB + CEA elevated 5.5 LFT elevated Abd US with possible 3.8 cm left lobe liver mass. Hypoechoic 6.1 cm right lobe liver mass Increased hepatic echogenicity and surface nodularity suggestive of cirrhotic changes. Cholelithiasis. Negative for dilated bile ducts Abdominal MRI -> 6.5 cm mass in the hepatic dome with imaging characteristics highly concerning for hepatocellular carcinoma. Cirrhosis with sequela of portal hypertension , including splenomegaly Cholelithiasis without evidence of acute cholecystitis. Diverticulosis without evidence of acute diverticulitis. 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 , s/p biopsy diverticulosis and internal hemorrhoids diet was resumed s/p CT guided liver mass biopsy 12/18 f/up with pathology AFP 5.1 pain management as needed monitor HH with goal to keep Hgb > 7 supportive care case discussed and evaluated by supervising physician Subjective ROS Limited/Unobtainable: No Allergies: Coded Allergies: No Known Allergies (Unverified , 02/17/19) Subjective s/p liver biopsy and GI procedure 12/18 afebrile, n leukocytosis no signs of resp distress + abd pain, intermittent, controlled with meds Objective Last 24 Hour Vital Signs Date Time Temp Pulse Resp B/P (MAP) Pulse Ox O2 Delivery O2 Flow Rate FiO2 12/20/19 08:37 103/68 12/20/19 08:36 82 103/68 12/20/19 08:00 82 12/20/19 08:00 97.6 82 19 103/68 (80) 98 12/20/19 04:00 97.7 82 18 117/80 (92) 99 12/20/19 04:00 75 12/20/19 03:39 97.7 12/20/19 00:00 97.2 91 18 129/74 (92) 98 12/20/19 00:00 77 12/19/19 20:27 Room Air 12/19/19 20:00 97.5 97 18 121/80 (94) 99 12/19/19 20:00 97 12/19/19 17:00 98.0 12/19/19 16:00 98.0 82 18 130/86 (101) 100 12/19/19 16:00 80 12/19/19 15:43 86 18 3.0 12/19/19 14:40 98.1 82 18 121/74 98 Room Air 12/19/19 14:35 76 18 125/81 100 Room Air 12/19/19 14:30 84 18 131/86 100 Nasal Cannula 1 12/19/19 14:30 98.0 84 18 131/86 (101) 100 12/19/19 14:25 78 18 133/91 100 Nasal Cannula 3 12/19/19 14:25 98.0 78 18 133/91 (105) 100 12/19/19 14:20 82 18 146/92 (110) 100 12/19/19 14:20 98.0 82 18 146/92 100 Nasal Cannula 3 12/19/19 14:19 98.0 76 18 100 Nasal Cannula 3 86 100 12/19/19 14:15 79 18 135/91 (106) 100 12/19/19 14:10 83 18 129/90 (103) 100 12/19/19 14:05 86 18 119/82 (94) 100 12/19/19 14:00 98.0 86 18 129/93 (105) 98 12/19/19 13:19 80 12/19/19 12:22 87 18 100 12/19/19 12:21 86 18 100 12/19/19 12:20 98.1 84 18 107/77 100 Nasal Cannula 3 12/19/19 12:11 86 18 105/82 100 Nasal Cannula 3 12/19/19 12:06 85 17 107/83 100 Nasal Cannula 3 12/19/19 12:01 98.5 86 18 102/72 100 Nasal Cannula 3 Intake and Output 12/19/19 12/20/19 19:00 07:00 Intake Total 1200 ml 360 ml Output Total 1 ml Balance 1199 ml 360 ml Intake Oral 700 ml 360 ml IV Total 500 ml Estimated Blood Loss 1 ml # Voids 2 # Bowel Movements 3 2 General Appearance: WD/WN HEENT: atraumatic, PERRL Respiratory/Chest: chest wall non-tender Cardiovascular: normal peripheral pulses, normal rate Abdomen: normal bowel sounds, soft, non tender, no organomegaly Genitourinary: normal external genitalia Neurologic/Psychiatric: health technician II-XII grossly normal Laboratory Tests 12/20/19 06:35: White Blood Count 4.8, Red Blood Count 3.61L, Hemoglobin 9.5L, Hematocrit 31.2L , Mean Corpuscular Volume 86, Mean Corpuscular Hemoglobin 26.4L, Mean Corpuscular Hemoglobin Concent 30.5L, Red Cell Distribution Width 26.6H, Platelet Count 279, Mean Platelet Volume 4.6L, Neutrophils (%) (Auto) 57.5, Lymphocytes (%) (Auto) 30.4, Monocytes (%) (Auto) 9.5, Eosinophils (%) (Auto) 1.7, Basophils (%) (Auto) 1.0 Current Medications Medications (Trade) Dose Ordered Sig/Alexandru Route PRN Reason Start Time Stop Time Status Last Admin Dose Admin Acetaminophen (Tylenol) 650 mg Q4H PRN ORAL Pain Scale (6-10) 12/16/19 00:15 01/15/20 00:14 Acetaminophen/ Hydrocodone Bitart (Magnolia 10/325) 1 tab Q4H PRN ORAL For Pain 12/16/19 12:38 12/23/19 12:37 12/20/19 08:37 Allopurinol (allopurinoL) 300 mg DAILY ORAL 12/16/19 09:00 01/15/20 08:59 12/20/19 08:37 Bisacodyl (Dulcolax) 10 mg PRN RECTAL 12/16/19 00:15 03/15/20 00:14 Docusate Sodium (Colace) 100 mg TWICE A DAY ORAL 12/16/19 09:00 01/15/20 08:59 12/20/19 08:36 Epoetin Rigoberto (Epoetin Rigoberto-EPBX(NON ESRD)) 10,000 unit SUBQ 12/17/19 21:00 03/16/20 20:59 12/19/19 21:14 Ferrous Sulfate (Feosol) 325 mg THREE TIMES A DAY ORAL 12/16/19 09:00 03/15/20 08:59 12/20/19 08:36 Losartan Potassium (Cozaar) 25 mg DAILY ORAL 12/17/19 09:00 01/16/20 08:59 12/20/19 08:37 Metoprolol Succinate (Toprol XL) 100 mg DAILY ORAL 12/17/19 09:00 03/16/20 08:59 12/20/19 08:36 Sodium Phosphate (Fleet's Sodium Phosl Enema) 133 ml DAILYPRN PRN RECTAL CONSTIPATION 12/16/19 12:38 01/15/20 12:37 Meghann Adkins NP December 20, 2019 10:29
[2019-12-20 12:00] VITALS: BP 110/70
--- NOTE | 2019-12-20 12:33 | Internal Med Progress Note ---
Subjective Date of Service: December 20, 2019 Physician Name John Anthony Attending Physician Levi Cary MD Current Medications Medications (Trade) Dose Ordered Sig/Alexandru Route PRN Reason Start Time Stop Time Status Last Admin Dose Admin Acetaminophen (Tylenol) 650 mg Q4H PRN ORAL Pain Scale (6-10) 12/16/19 00:15 01/15/20 00:14 Acetaminophen/ Hydrocodone Bitart (Alba 10/325) 1 tab Q4H PRN ORAL For Pain 12/16/19 12:38 12/23/19 12:37 12/20/19 08:37 Allopurinol (allopurinoL) 300 mg DAILY ORAL 12/16/19 09:00 01/15/20 08:59 12/20/19 08:37 Bisacodyl (Dulcolax) 10 mg PRN RECTAL 12/16/19 00:15 03/15/20 00:14 Docusate Sodium (Colace) 100 mg TWICE A DAY ORAL 12/16/19 09:00 01/15/20 08:59 12/20/19 08:36 Epoetin Rigoberto (Epoetin Rigoberto-EPBX(NON ESRD)) 10,000 unit SUN-SUN-SUN SUBQ 12/17/19 21:00 03/16/20 20:59 12/19/19 21:14 Ferrous Sulfate (Feosol) 325 mg THREE TIMES A DAY ORAL 12/16/19 09:00 03/15/20 08:59 12/20/19 08:36 Losartan Potassium (Cozaar) 25 mg DAILY ORAL 12/17/19 09:00 01/16/20 08:59 12/20/19 08:37 Metoprolol Succinate (Toprol XL) 100 mg DAILY ORAL 12/17/19 09:00 03/16/20 08:59 12/20/19 08:36 Sodium Phosphate (Fleet's Sodium Phosl Enema) 133 ml DAILYPRN PRN RECTAL CONSTIPATION 12/16/19 12:38 01/15/20 12:37 Allergies: Coded Allergies: No Known Allergies (Unverified , 02/17/19) ROS Limited/Unobtainable: No Constitutional: Reports: no symptoms HEENT: Reports: no symptoms Cardiovascular: Reports: no symptoms Respiratory: Reports: no symptoms Gastrointestinal/Abdominal: Reports: no symptoms Genitourinary: Reports: no symptoms Neurologic/Psychiatric: Reports: no symptoms Subjective 69 YO M with history of CVA and AK admitted with syncope. Cover for Int Med-Dr Cary. S/P Endoscopy/colonoscopy Sun12/19/19. S/P ultrasound guided liver mass biopsy 12/19/19. Objective Last Vital Signs Date Time Temp Pulse Resp B/P (MAP) Pulse Ox O2 Delivery O2 Flow Rate FiO2 12/20/19 09:00 Room Air 12/20/19 08:37 103/68 12/20/19 08:36 82 12/20/19 08:00 97.6 19 98 12/19/19 15:43 3.0 Laboratory Tests Test 12/20/19 06:35 White Blood Count 4.8 K/UL (4.8-10.8) Red Blood Count 3.61 M/UL (4.70-6.10) L Hemoglobin 9.5 G/DL (14.2-18.0) L Hematocrit 31.2 % (42.0-52.0) L Mean Corpuscular Volume 86 FL (80-99) Mean Corpuscular Hemoglobin 26.4 PG (27.0-31.0) L Mean Corpuscular Hemoglobin Concent 30.5 G/DL (32.0-36.0) L Red Cell Distribution Width 26.6 % (11.6-14.8) H Platelet Count 279 K/UL (150-450) Mean Platelet Volume 4.6 FL (6.5-10.1) L Neutrophils (%) (Auto) 57.5 % (45.0-75.0) Lymphocytes (%) (Auto) 30.4 % (20.0-45.0) Monocytes (%) (Auto) 9.5 % (1.0-10.0) Eosinophils (%) (Auto) 1.7 % (0.0-3.0) Basophils (%) (Auto) 1.0 % (0.0-2.0) Intake and Output 12/19/19 12/20/19 19:00 07:00 Intake Total 1200 ml 360 ml Output Total 1 ml Balance 1199 ml 360 ml Intake Oral 700 ml 360 ml IV Total 500 ml Estimated Blood Loss 1 ml # Voids 2 # Bowel Movements 3 2 CXR Patient : CEASARJESSA Referring Physician: Edgar Max MD ID Number: [id number] Service Date: 12/17/19 : 1950 Report Date: 12/17/19 Gender: M Accession No.: [id number] Location: 2E Procedure: MRI Abdomen wo/w Contrast Indication: Abdominal pain. Liver mass noted on abdominal ultrasound. Technique: MRI of the abdomen was obtained in a multisequence, multiplanar acquisition before and after administration of IV gadolinium. MRCP sequences also obtained. Comparison: Correlation made to abdominal ultrasound 12/16/[address] abdomen pelvis 05/08/2016. Findings: Multiple sequences are degraded by patient motion. Additionally there is susceptibility artifact in the upper abdomen related to surgical clips in the proximal stomach/gastroesophageal junction which were better seen on the prior CT of 05/07/2016. Within limitations of the exam: Liver has a nodular contour compatible with cirrhosis. Within the hepatic dome (segment VII) there is a mass lesion that measures approximately 6.1 cm craniocaudal by 6.5 cm transverse and approximately 6.2 cm AP. This lesion demonstrates brisk arterial phase enhancement with washout on more delayed phase and enhancing pseudocapsule. Findings are highly concerning for hepatocellular carcinoma and correlation with tumor markers (AFP) is recommended. No additional arterial enhancing liver mass is identified. Note however that evaluation of portions of the left hepatic lobe is limited due to susceptibility artifact described above. Hepatic veins and portal veins appear patent. Gallstones are noted within nondistended gallbladder. There is no gallbladder wall thickening or pericholecystic inflammatory changes. No biliary ductal dilatation. MRCP images demonstrate no evidence of choledocholithiasis. The pancreatic duct is normal in caliber. The spleen is enlarged measuring 15 cm in length. Pancreas grossly unremarkable. There is a cyst in the upper pole the right kidney that measures approximately 3 cm diameter. There is noted evidence of hydronephrosis bilaterally. There is colonic diverticulosis. No evidence to suggest acute diverticulitis. Imaged lung bases grossly unremarkable. Heart appears borderline enlarged. The abdominal aorta is normal in caliber. There is atherosclerotic disease. Gynecomastia is suggested. Bone marrow signal appears homogenous. No appreciable acute osseous abnormality. IMPRESSION: Exam degraded by patient motion, significantly degrading some series. There is also significant susceptibility artifact related to surgical serial/clips in the region of the proximal stomach/GE junction (seen on CT 05/08/2016). Within the limitations of the study: * 6.5 cm mass in the hepatic dome with imaging characteristics highly concerning for hepatocellular carcinoma. Correlation with tumor markers (AFP)recommended. * Cirrhosis with sequela of portal hypertension including splenomegaly * Cholelithiasis without evidence of acute cholecystitis. * Diverticulosis without evidence of acute diverticulitis. Objective PHYSICAL EXAMINATION: GENERAL: Patient is well-developed, well-nourished male. No apparent distress. HEENT: Eyes, pupils are equal and responsive to light and accommodation. Extraocular movements are intact. NECK: Supple without lymphadenopathy. CHEST: Lungs are clear to auscultation bilaterally without wheezes or rales. CARDIOVASCULAR: Regular rhythm and rate. S1-S2 are normal without murmurs, rubs, or gallops. ABDOMINAL: Soft, nontender, and nondistended. Positive bowel sounds. No evidence of hepatosplenomegaly. Currently, no rebound or guarding noted. EXTREMITIES: Negative for clubbing, cyanosis, or edema. RECTAL/GENITAL: Not performed. NEUROLOGIC: Cranial nerves II through XII are grossly intact without focal deficits. Motor strength is 5/5 bilaterally. Deep tendon reflexes are 2+ plantar. Assessment/Plan Assessment/Plan ASSESSMENT: This is a 69-year-old male. 1. Syncopal episode. 2. Coronary artery disease. 3. Cerebrovascular disease. 4. Acute on chronic renal failure. 5. Liver mass. 6. History of hepatitis C. 7. Hypertension. 8. Chronic anemia. 9. Gout. 10. GI bleed/occult blood positive TREATMENT: 1. Syncopal episode. ?hypotension due to BP meds? A Cardiology consultation has been obtained with Dr. Herman Gonzalez. We will follow recommendations of Cardiology. Serial troponin levels = neg 2. Coronary artery disease. Patient is status post cardiac catheterization in October 2019 @ [facility] As above, a Cardiology consultation has been obtained with Dr. Herman Gonzalez. 3. Cerebrovascular disease. Patient is status post cerebrovascular accident x2. An MRI of the brain=neg acute infarct. Carotid doppler <50% stenosis 4. Renal failure. This may be secondary to dehydration versus chronic renal failure. 5. Liver mass. ?hepatocellular carcinoma? Patient is scheduled for S/P ultrasound guided biopsy Sun12/19/19- await path report Follow up with [facility] hepatobiliary team on discharge. 6. Chronic hepatitis C. 7. Hypertension. Continue metoprolol and Norvasc as above. 8. Chronic anemia. Continue iron as above. 9. Gout. Continue allopurinol as above. 10. GI bleed-S/P endoscopy/colonoscopy 12/19/19=gastritis and diverticulosis John Anthony MD December 20, 2019 12:33
[2019-12-20] MEDS ORDERED: 1/2 NS 1000ml IV ONE (15:01)
[2019-12-20 16:00] VITALS: BP 112/62
--- NOTE | 2019-12-20 19:14 | NUR ---
HAND-OFF: Report given to Melissa Baltazar.Plan of care endorsed.
[2019-12-20 20:00] VITALS: BP 116/72
--- NOTE | 2019-12-20 20:00 | NUR ---
NURSE NOTES: RECEIVED PATIENT LYING IN BED, AWAKE, ALERT/ORIENTED X4, VERBALLY RESPONSIVE, DENIES EPISODES OF SYNCOPE. NO SIGNS AND SYMPTOMS OF ACUTE CARDIO RESPIRATORY DISTRESS/SHORTNESS OF BREATH, DENIES CHEST PAIN, NO EDEMA NOTED, CONTINUE ON HEATER FURNACE. IV INTACT TO RIGHT FOREARM/GAUGE 20 SALINE LOCK, NO REDNESS/SWELLING NOTED TO SITE. CONTINENT OF B/B, NO REPORT OF GI DISCOMFORT, NO N/V/D. SIDE RAILS UP X3/BED IN LOWEST POSITION FOR SAFETY, ENCOURAGED PATIENT TO UTILIZE CALL LIGHT FOR ASSISTANCE, VERBALIZED UNDERSTANDING. CONTINUE WITH CURRENT PLAN OF CARE. NAD.
--- NOTE | 2019-12-20 21:32 | Cardiology Progress Note ---
Assessment/Plan Assessment/Plan syncope, suspected to be caused by medications, now is asymptomatic and no dizziness post endoscopy liver mass, per PCP cardiac stable Subjective Subjective cardiology coverage for Dr Gonzalez. the patient feels good, denies chest pain, denies dizziness Objective Last 24 Hour Vital Signs Date Time Temp Pulse Resp B/P (MAP) Pulse Ox O2 Delivery O2 Flow Rate FiO2 12/20/19 20:00 98.0 76 18 116/72 (87) 93 12/20/19 16:00 96.8 80 20 112/62 (79) 97 12/20/19 16:00 64 12/20/19 12:00 101 12/20/19 12:00 97.7 87 18 110/70 (83) 98 12/20/19 09:00 Room Air 12/20/19 09:00 64 12/20/19 08:37 103/68 12/20/19 08:36 82 103/68 12/20/19 08:00 82 12/20/19 08:00 97.6 82 19 103/68 (80) 98 12/20/19 04:00 97.7 82 18 117/80 (92) 99 12/20/19 04:00 75 12/20/19 03:39 97.7 12/20/19 00:00 97.2 91 18 129/74 (92) 98 12/20/19 00:00 77 General Appearance: no apparent distress EENT: PERRL/EOMI Neck: normal inspection, no JVD Cardiovascular: regular rhythm, systolic murmur Respiratory/Chest: normal breath sounds Abdomen: soft Extremities: trace edema Intake and Output 12/19/19 12/20/19 19:00 07:00 Intake Total 1200 ml 360 ml Output Total 1 ml Balance 1199 ml 360 ml Intake Oral 700 ml 360 ml IV Total 500 ml Estimated Blood Loss 1 ml # Voids 2 # Bowel Movements 3 2 Laboratory Tests Test 12/20/19 06:35 White Blood Count 4.8 K/UL (4.8-10.8) Red Blood Count 3.61 M/UL (4.70-6.10) L Hemoglobin 9.5 G/DL (14.2-18.0) L Hematocrit 31.2 % (42.0-52.0) L Mean Corpuscular Volume 86 FL (80-99) Mean Corpuscular Hemoglobin 26.4 PG (27.0-31.0) L Mean Corpuscular Hemoglobin Concent 30.5 G/DL (32.0-36.0) L Red Cell Distribution Width 26.6 % (11.6-14.8) H Platelet Count 279 K/UL (150-450) Mean Platelet Volume 4.6 FL (6.5-10.1) L Neutrophils (%) (Auto) 57.5 % (45.0-75.0) Lymphocytes (%) (Auto) 30.4 % (20.0-45.0) Monocytes (%) (Auto) 9.5 % (1.0-10.0) Eosinophils (%) (Auto) 1.7 % (0.0-3.0) Basophils (%) (Auto) 1.0 % (0.0-2.0) Destiny Verduzco MD December 20, 2019 21:32
[2019-12-21] VITALS (7 sets, daily range): BP systolic 103–130; BP diastolic 70–80
--- NOTE | 2019-12-21 06:11 | NUR ---
NURSE NOTES: RESTED WELL, NO SIGNIFICANT CHANGE OF CONDITION NOTED THROUGHOUT THE NIGHT. SAFETY MAINTAINED. NAD.
--- NOTE | 2019-12-21 06:20 | General Progress Note ---
Assessment/Plan Assessment/Plan: 1. History of hepatitis C cirrhosis. 2. Liver mass 3. CVA. 4. Coronary artery disease and cardiac cath in October 2019. 5. Hypertension. 6. Gout. 7. Anemia. 8. GIB [facility] records reviewed patient has stool ob positive at [facility] too no GI procedures were done MRI reviewed s/p EGD and colonoscopy: SUMMARY OF FINDINGS: 1. Small esophageal varices. 2. Clips at the GE junction from prior endoscopy procedures. 3. Atrophic gastritis, status post biopsy. 4. 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 5. Diverticulosis. 6. Internal hemorrhoids. s/p CT guided biopsy of liver mass fu path Subjective ROS Limited/Unobtainable: Yes Allergies: Coded Allergies: No Known Allergies (Unverified , 02/17/19) Objective Last 24 Hour Vital Signs Date Time Temp Pulse Resp B/P (MAP) Pulse Ox O2 Delivery O2 Flow Rate FiO2 12/21/19 04:00 97.4 74 18 130/71 (90) 99 12/21/19 04:00 60 12/21/19 00:00 78 12/21/19 00:00 98.0 81 18 113/78 (90) 97 12/20/19 23:47 98.0 12/20/19 21:00 Room Air 12/20/19 20:00 98.0 76 18 116/72 (87) 93 12/20/19 20:00 64 12/20/19 16:00 96.8 80 20 112/62 (79) 97 12/20/19 16:00 64 12/20/19 12:00 101 12/20/19 12:00 97.7 87 18 110/70 (83) 98 12/20/19 09:00 Room Air 12/20/19 09:00 64 12/20/19 08:37 103/68 12/20/19 08:36 82 103/68 12/20/19 08:00 82 12/20/19 08:00 97.6 82 19 103/68 (80) 98 Intake and Output 12/20/19 12/21/19 19:00 07:00 Intake Total 120 ml 560 ml Output Total 1200 ml Balance -1080 ml 560 ml Intake Oral 120 ml 560 ml Output Urine Total 1200 ml # Voids 3 3 # Bowel Movements 2 3 Laboratory Tests 12/20/19 06:35: White Blood Count 4.8, Red Blood Count 3.61L, Hemoglobin 9.5L, Hematocrit 31.2L , Mean Corpuscular Volume 86, Mean Corpuscular Hemoglobin 26.4L, Mean Corpuscular Hemoglobin Concent 30.5L, Red Cell Distribution Width 26.6H, Platelet Count 279, Mean Platelet Volume 4.6L, Neutrophils (%) (Auto) 57.5, Lymphocytes (%) (Auto) 30.4, Monocytes (%) (Auto) 9.5, Eosinophils (%) (Auto) 1.7, Basophils (%) (Auto) 1.0 Height (Feet): 5 Height (Inches): 5.00 Weight (Pounds): 163 General Appearance: alert EENT: normal ENT inspection Neck: supple Cardiovascular: normal rate Respiratory/Chest: decreased breath sounds Abdomen: normal bowel sounds, non tender, soft Extremities: non-tender Slick Bailey MD December 21, 2019 06:20
[2019-12-21] MEDS: Losartan 25mg tab ORAL SCH (09:11)
[2019-12-21] MEDS: Docusate 100mg cap ORAL SCH ×2 (09:11→18:02)
[2019-12-21] MEDS: Metoprolol Succinate XL 100mg tab ORAL SCH (09:12)
[2019-12-21 09:39] LABS: EOSINOPHILS % (AUTO) 2.5 % (0.0-3.0); HEMATOCRIT 29.4 % (42.0-52.0); HEMOGLOBIN 8.9 G/DL (14.2-18.0); LYMPHOCYTES % (AUTO) 27.6 % (20.0-45.0); MEAN CORPUSCULAR VOLUME 88 FL (80-99); MONOCYTES % (AUTO) 10.3 % (1.0-10.0); NEUTROPHILS % (AUTO) 58.7 % (45.0-75.0); PLATELET COUNT 222 K/UL (150-450); RED BLOOD COUNT 3.36 M/UL (4.70-6.10); RED CELL DISTRIBUTION WIDTH 26.3 % (11.6-14.8); WHITE BLOOD COUNT 4.2 K/UL (4.8-10.8)
[2019-12-21 09:49] LABS: ANION GAP 11 mmol/L (5-15); BLOOD UREA NITROGEN 17 mg/dL (7-18); CALCIUM 8.7 MG/DL (8.5-10.1); CARBON DIOXIDE 21 MMOL/L (21-32); CHLORIDE 110 MMOL/L (98-107); CREATININE 1.2 MG/DL (0.55-1.30); POTASSIUM 4.1 MMOL/L (3.5-5.1); SODIUM 142 MMOL/L (136-145)
--- NOTE | 2019-12-21 09:50 | Pulmonology Progress Note ---
Assessment/Plan Assessment/Plan ASSESSMENT Syncopal episode, likely due to hypotension Cerebrovascular disease with history of CVA x2 Coronary artery disease ,status post MS Acute on chronic renal failure Liver mass , status post biopsy on 12/18 Hepatitis C Portal hypertension Cirrhosis Cholelithiasis Diverticulosis Hypertension Chronic anemia Stool for OB + Status post EGD and colonoscopy Acute encephalopathy -resolved Gout PLAN OF CARE tele pulse ox stable on RA will get baseline CXR Echo with pEF troponin negative, EKG revealed no acute ischemic changes , pt ruled out for acute MS BP improved in [place] in few hours, suggestive of probable hypotension being the cause of syncope-as per cardio no orthostatic changes patient s/p IV hydration CT of the head at [place] NGT Carotid duplex -> no hemodynamically significant stenosis Brain MRI -> no evidence of acute intracranial pathology BP management with BB and ARB, BP remained stable titrate O2 to keep sat above 92%, pulm hygiene as needed stool for OB + CEA elevated 5.5 LFT elevated Abd US with possible 3.8 cm left lobe liver mass. Hypoechoic 6.1 cm right lobe liver mass Increased hepatic echogenicity and surface nodularity suggestive of cirrhotic changes. Cholelithiasis. Negative for dilated bile ducts Abdominal MRI -> 6.5 cm mass in the hepatic dome with imaging characteristics highly concerning for hepatocellular carcinoma. Cirrhosis with sequela of portal hypertension , including splenomegaly Cholelithiasis without evidence of acute cholecystitis. Diverticulosis without evidence of acute diverticulitis. 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 , s/p biopsy diverticulosis and internal hemorrhoids diet was resumed s/p CT guided liver mass biopsy 12/18 f/up with pathology AFP 5.1 pain management as needed monitor HH with goal to keep Hgb > 7 supportive care case discussed and evaluated by supervising physician Subjective ROS Limited/Unobtainable: Yes Allergies: Coded Allergies: No Known Allergies (Unverified , 02/17/19) Subjective s/p liver biopsy and GI procedure 12/18 afebrile, n leukocytosis no signs of resp distress + abd pain, intermittent, controlled with meds Objective Last 24 Hour Vital Signs Date Time Temp Pulse Resp B/P (MAP) Pulse Ox O2 Delivery O2 Flow Rate FiO2 12/21/19 09:12 60 130/71 12/21/19 09:11 130/71 12/21/19 09:00 Room Air 12/21/19 08:00 68 12/21/19 04:00 97.4 74 18 130/71 (90) 99 12/21/19 04:00 60 12/21/19 00:00 78 12/21/19 00:00 98.0 81 18 113/78 (90) 97 12/20/19 23:47 98.0 12/20/19 21:00 Room Air 12/20/19 20:00 98.0 76 18 116/72 (87) 93 12/20/19 20:00 64 12/20/19 16:00 96.8 80 20 112/62 (79) 97 12/20/19 16:00 64 12/20/19 12:00 101 12/20/19 12:00 97.7 87 18 110/70 (83) 98 Intake and Output 12/20/19 12/21/19 19:00 07:00 Intake Total 120 ml 560 ml Output Total 1200 ml Balance -1080 ml 560 ml Intake Oral 120 ml 560 ml Output Urine Total 1200 ml # Voids 3 3 # Bowel Movements 2 3 Objective General Appearance: WD/WN HEENT: atraumatic, PERRL Respiratory/Chest: chest wall non-tender Cardiovascular: normal peripheral pulses, normal rate Abdomen: normal bowel sounds, soft, non tender, no organomegaly Genitourinary: normal external genitalia 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 Abdomen: normal bowel sounds, soft, non tender Laboratory Tests 12/21/19 06:40: White Blood Count [Pending], Red Blood Count [Pending], Hemoglobin [Pending], Hematocrit [Pending], Mean Corpuscular Volume [Pending], Mean Corpuscular Hemoglobin [Pending], Mean Corpuscular Hemoglobin Concent [Pending], Red Cell Distribution Width [Pending], Platelet Count [Pending], Mean Platelet Volume [ Pending], Neutrophils (%) (Auto) [Pending], Lymphocytes (%) (Auto) [Pending], Monocytes (%) (Auto) [Pending], Eosinophils (%) (Auto) [Pending], Basophils (%) (Auto) [Pending], Sodium Level [Pending], Potassium Level [Pending], Chloride Level [Pending], Carbon Dioxide Level [Pending], Blood Urea Nitrogen [Pending], Creatinine [Pending], Estimat Glomerular Filtration Rate [Pending], Glucose Level [Pending], Calcium Level [Pending] Current Medications Medications (Trade) Dose Ordered Sig/Alexandru Route PRN Reason Start Time Stop Time Status Last Admin Dose Admin Acetaminophen (Tylenol) 650 mg Q4H PRN ORAL Pain Scale (6-10) 12/16/19 00:15 01/15/20 00:14 Acetaminophen/ Hydrocodone Bitart ([place] 10/325) 1 tab Q4H PRN ORAL For Pain 12/16/19 12:38 12/23/19 12:37 12/20/19 23:17 Allopurinol (allopurinoL) 300 mg DAILY ORAL 12/16/19 09:00 01/15/20 08:59 12/21/19 09:11 Bisacodyl (Dulcolax) 10 mg PRN RECTAL 12/16/19 00:15 03/15/20 00:14 Docusate Sodium (Colace) 100 mg TWICE A DAY ORAL 12/16/19 09:00 01/15/20 08:59 12/21/19 09:11 Epoetin Rigoberto (Epoetin Rigoberto-EPBX(NON ESRD)) 10,000 unit SUN-SUN-SUN SUBQ 12/17/19 21:00 03/16/20 20:59 12/19/19 21:14 Ferrous Sulfate (Feosol) 325 mg THREE TIMES A DAY ORAL 12/16/19 09:00 03/15/20 08:59 12/21/19 09:11 Losartan Potassium (Cozaar) 25 mg DAILY ORAL 12/17/19 09:00 01/16/20 08:59 12/21/19 09:11 Metoprolol Succinate (Toprol XL) 100 mg DAILY ORAL 12/17/19 09:00 03/16/20 08:59 12/21/19 09:12 Sodium Phosphate (Fleet's Sodium Phosl Enema) 133 ml DAILYPRN PRN RECTAL CONSTIPATION 12/16/19 12:38 01/15/20 12:37 Meghann Adkins NP December 21, 2019 09:50
--- NOTE | 2019-12-21 14:49 | Internal Med Progress Note ---
Subjective Date of Service: December 21, 2019 Physician Name John Anthony Attending Physician Levi Cary MD Current Medications Medications (Trade) Dose Ordered Sig/Alexandru Route PRN Reason Start Time Stop Time Status Last Admin Dose Admin Acetaminophen (Tylenol) 650 mg Q4H PRN ORAL Pain Scale (6-10) 12/16/19 00:15 01/15/20 00:14 Acetaminophen/ Hydrocodone Bitart ([place] 10/325) 1 tab Q4H PRN ORAL For Pain 12/16/19 12:38 12/23/19 12:37 12/20/19 23:17 Allopurinol (allopurinoL) 300 mg DAILY ORAL 12/16/19 09:00 01/15/20 08:59 12/21/19 09:11 Bisacodyl (Dulcolax) 10 mg PRN RECTAL 12/16/19 00:15 03/15/20 00:14 Docusate Sodium (Colace) 100 mg TWICE A DAY ORAL 12/16/19 09:00 01/15/20 08:59 12/21/19 09:11 Epoetin Rigoberto (Epoetin Rigoberto-EPBX(NON ESRD)) 10,000 unit SUN-SUN-SUN SUBQ 12/17/19 21:00 03/16/20 20:59 12/19/19 21:14 Ferrous Sulfate (Feosol) 325 mg THREE TIMES A DAY ORAL 12/16/19 09:00 03/15/20 08:59 12/21/19 13:20 Losartan Potassium (Cozaar) 25 mg DAILY ORAL 12/17/19 09:00 01/16/20 08:59 12/21/19 09:11 Metoprolol Succinate (Toprol XL) 100 mg DAILY ORAL 12/17/19 09:00 03/16/20 08:59 12/21/19 09:12 Sodium Phosphate (Fleet's Sodium Phosl Enema) 133 ml DAILYPRN PRN RECTAL CONSTIPATION 12/16/19 12:38 01/15/20 12:37 Allergies: Coded Allergies: No Known Allergies (Unverified , 02/17/19) ROS Limited/Unobtainable: No Constitutional: Reports: no symptoms HEENT: Reports: no symptoms Cardiovascular: Reports: no symptoms Respiratory: Reports: no symptoms Gastrointestinal/Abdominal: Reports: no symptoms Genitourinary: Reports: no symptoms Neurologic/Psychiatric: Reports: no symptoms Subjective 69 YO M with history of CVA and [place] admitted with syncope. Cover for Int Med-Dr Cary. S/P Endoscopy/colonoscopy Sun12/19/19. S/P ultrasound guided liver mass biopsy 12/19/19. Objective Last Vital Signs Date Time Temp Pulse Resp B/P (MAP) Pulse Ox O2 Delivery O2 Flow Rate FiO2 12/21/19 12:00 98.3 78 20 115/79 (91) 98 12/21/19 09:00 Room Air 12/19/19 15:43 3.0 Laboratory Tests Test 12/21/19 06:40 White Blood Count 4.2 K/UL (4.8-10.8) L Red Blood Count 3.36 M/UL (4.70-6.10) L Hemoglobin 8.9 G/DL (14.2-18.0) L Hematocrit 29.4 % (42.0-52.0) L Mean Corpuscular Volume 88 FL (80-99) Mean Corpuscular Hemoglobin 26.5 PG (27.0-31.0) L Mean Corpuscular Hemoglobin Concent 30.2 G/DL (32.0-36.0) L Red Cell Distribution Width 26.3 % (11.6-14.8) H Platelet Count 222 K/UL (150-450) Mean Platelet Volume 4.8 FL (6.5-10.1) L Neutrophils (%) (Auto) 58.7 % (45.0-75.0) Lymphocytes (%) (Auto) 27.6 % (20.0-45.0) Monocytes (%) (Auto) 10.3 % (1.0-10.0) H Eosinophils (%) (Auto) 2.5 % (0.0-3.0) Basophils (%) (Auto) 1.0 % (0.0-2.0) Sodium Level 142 MMOL/L (136-145) Potassium Level 4.1 MMOL/L (3.5-5.1) Chloride Level 110 MMOL/L (98-107) H Carbon Dioxide Level 21 MMOL/L (21-32) Anion Gap 11 mmol/L (5-15) Blood Urea Nitrogen 17 mg/dL (7-18) Creatinine 1.2 MG/DL (0.55-1.30) Estimat Glomerular Filtration Rate > 60 mL/min (>60) Glucose Level 80 MG/DL (74-106) Calcium Level 8.7 MG/DL (8.5-10.1) Intake and Output 12/20/19 12/21/19 19:00 07:00 Intake Total 120 ml 560 ml Output Total 1200 ml Balance -1080 ml 560 ml Intake Oral 120 ml 560 ml Output Urine Total 1200 ml # Voids 3 3 # Bowel Movements 2 3 Objective PHYSICAL EXAMINATION: GENERAL: Patient is well-developed, well-nourished male. No apparent distress. HEENT: Eyes, pupils are equal and responsive to light and accommodation. Extraocular movements are intact. NECK: Supple without lymphadenopathy. CHEST: Lungs are clear to auscultation bilaterally without wheezes or rales. CARDIOVASCULAR: Regular rhythm and rate. S1-S2 are normal without murmurs, rubs, or gallops. ABDOMINAL: Soft, nontender, and nondistended. Positive bowel sounds. No evidence of hepatosplenomegaly. Currently, no rebound or guarding noted. EXTREMITIES: Negative for clubbing, cyanosis, or edema. RECTAL/GENITAL: Not performed. NEUROLOGIC: Cranial nerves II through XII are grossly intact without focal deficits. Motor strength is 5/5 bilaterally. Deep tendon reflexes are 2+ plantar. Assessment/Plan Assessment/Plan ASSESSMENT: This is a 69-year-old male. 1. Syncopal episode. 2. Coronary artery disease. 3. Cerebrovascular disease. 4. Acute on chronic renal failure. 5. Liver mass. 6. History of hepatitis C. 7. Hypertension. 8. Chronic anemia. 9. Gout. 10. GI bleed/occult blood positive TREATMENT: 1. Syncopal episode. ?hypotension due to BP meds? A Cardiology consultation has been obtained with Dr. Herman Gonzalez. We will follow recommendations of Cardiology. Serial troponin levels = neg 2. Coronary artery disease. Patient is status post cardiac catheterization in October 2019 @ [facility] As above, a Cardiology consultation has been obtained with Dr. Herman Gonzalez. 3. Cerebrovascular disease. Patient is status post cerebrovascular accident x2. An MRI of the brain=neg acute infarct. Carotid doppler <50% stenosis 4. Renal failure. This may be secondary to dehydration versus chronic renal failure. 5. Liver mass. ?hepatocellular carcinoma? Patient is scheduled for S/P ultrasound guided biopsy 12/19/19- await path report Follow up with [facility] hepatobiliary team on discharge. 6. Chronic hepatitis C. 7. Hypertension. Continue metoprolol and Norvasc as above. 8. Chronic anemia. Continue iron as above. 9. Gout. Continue allopurinol as above. 10. GI bleed-S/P endoscopy/colonoscopy 12/19/19=gastritis and diverticulosis John Anthony MD December 21, 2019 14:49
[2019-12-21] MEDS: HYDROcodone/Acetamin 10/325 tab ORAL PRN ×2 (15:40→23:57)
--- NOTE | 2019-12-21 16:08 | Cardiology Progress Note ---
Assessment/Plan Assessment/Plan syncope, suspected to be caused by medications, now is asymptomatic and no dizziness post endoscopy liver mass, per PCP cardiac stable Subjective Subjective cardiology coverage for Dr Gonzalez. the patient feels good, denies chest pain, denies dizziness Objective Last 24 Hour Vital Signs Date Time Temp Pulse Resp B/P (MAP) Pulse Ox O2 Delivery O2 Flow Rate FiO2 12/21/19 12:00 98.3 78 20 115/79 (91) 98 12/21/19 12:00 78 12/21/19 09:12 60 130/71 12/21/19 09:11 130/71 12/21/19 09:00 Room Air 12/21/19 08:00 68 12/21/19 08:00 98.4 76 20 105/72 (83) 98 12/21/19 04:00 97.4 74 18 130/71 (90) 99 12/21/19 04:00 60 12/21/19 00:00 78 12/21/19 00:00 98.0 81 18 113/78 (90) 97 12/20/19 23:47 98.0 12/20/19 21:00 Room Air 12/20/19 20:00 98.0 76 18 116/72 (87) 93 12/20/19 20:00 64 General Appearance: no apparent distress EENT: PERRL/EOMI Neck: supple Rhythm: NSR Cardiovascular: normal rate Respiratory/Chest: no accessory muscle use, decreased breath sounds Abdomen: distended Intake and Output 12/20/19 12/21/19 19:00 07:00 Intake Total 120 ml 560 ml Output Total 1200 ml Balance -1080 ml 560 ml Intake Oral 120 ml 560 ml Output Urine Total 1200 ml # Voids 3 3 # Bowel Movements 2 3 Laboratory Tests Test 12/21/19 06:40 White Blood Count 4.2 K/UL (4.8-10.8) L Red Blood Count 3.36 M/UL (4.70-6.10) L Hemoglobin 8.9 G/DL (14.2-18.0) L Hematocrit 29.4 % (42.0-52.0) L Mean Corpuscular Volume 88 FL (80-99) Mean Corpuscular Hemoglobin 26.5 PG (27.0-31.0) L Mean Corpuscular Hemoglobin Concent 30.2 G/DL (32.0-36.0) L Red Cell Distribution Width 26.3 % (11.6-14.8) H Platelet Count 222 K/UL (150-450) Mean Platelet Volume 4.8 FL (6.5-10.1) L Neutrophils (%) (Auto) 58.7 % (45.0-75.0) Lymphocytes (%) (Auto) 27.6 % (20.0-45.0) Monocytes (%) (Auto) 10.3 % (1.0-10.0) H Eosinophils (%) (Auto) 2.5 % (0.0-3.0) Basophils (%) (Auto) 1.0 % (0.0-2.0) Sodium Level 142 MMOL/L (136-145) Potassium Level 4.1 MMOL/L (3.5-5.1) Chloride Level 110 MMOL/L (98-107) H Carbon Dioxide Level 21 MMOL/L (21-32) Anion Gap 11 mmol/L (5-15) Blood Urea Nitrogen 17 mg/dL (7-18) Creatinine 1.2 MG/DL (0.55-1.30) Estimat Glomerular Filtration Rate > 60 mL/min (>60) Glucose Level 80 MG/DL (74-106) Calcium Level 8.7 MG/DL (8.5-10.1) Destiny Verduzco MD December 21, 2019 16:08
--- NOTE | 2019-12-21 19:50 | NUR ---
NURSE NOTES: Received pt from TRAVIS Nicholas. Pt awake, alert, and talkative. Bed in lowest position. Call light within reach. Will continue to monitor.
[2019-12-22 04:00] VITALS: BP 122/84
[2019-12-22 07:13] LABS: BASOPHILS % (AUTO) 0.7 % (0.0-2.0); EOSINOPHILS % (AUTO) 2.6 % (0.0-3.0); HEMATOCRIT 28.3 % (42.0-52.0); HEMOGLOBIN 8.7 G/DL (14.2-18.0); MEAN CORPUSCULAR VOLUME 88 FL (80-99); MONOCYTES % (AUTO) 9.9 % (1.0-10.0); NEUTROPHILS % (AUTO) 58.8 % (45.0-75.0); PLATELET COUNT 211 K/UL (150-450); RED BLOOD COUNT 3.23 M/UL (4.70-6.10); RED CELL DISTRIBUTION WIDTH 26.3 % (11.6-14.8); WHITE BLOOD COUNT 4.3 K/UL (4.8-10.8)
[2019-12-22 07:32] LABS: ANION GAP 11 mmol/L (5-15); BLOOD UREA NITROGEN 16 mg/dL (7-18); CALCIUM 8.8 MG/DL (8.5-10.1); CARBON DIOXIDE 22 MMOL/L (21-32); CHLORIDE 110 MMOL/L (98-107); CREATININE 1.3 MG/DL (0.55-1.30); POTASSIUM 3.9 MMOL/L (3.5-5.1); SODIUM 143 MMOL/L (136-145)
--- NOTE | 2019-12-22 08:30 | NUR ---
Awake, Oriented x4, talkative & conversant. Verbalizing needs, anxious to go home, will continue to monitor
[2019-12-22 08:31] VITALS: BP 122/68
[2019-12-22] MEDS: Docusate 100mg cap ORAL SCH (08:48)
[2019-12-22] MEDS: Metoprolol Succinate XL 100mg tab ORAL SCH (08:49)
[2019-12-22] MEDS: Losartan 25mg tab ORAL SCH (08:50)
--- NOTE | 2019-12-22 09:05 | General Progress Note ---
Assessment/Plan Assessment/Plan: 1. History of hepatitis C cirrhosis. 2. Liver mass 3. CVA. 4. Coronary artery disease and cardiac cath in October 2019. 5. Hypertension. 6. Gout. 7. Anemia. 8. GIB [facility] records reviewed patient has stool ob positive at [facility] too no GI procedures were done MRI reviewed s/p EGD and colonoscopy: SUMMARY OF FINDINGS: 1. Small esophageal varices. 2. Clips at the GE junction from prior endoscopy procedures. 3. Atrophic gastritis, status post biopsy. 4. 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 5. Diverticulosis. 6. Internal hemorrhoids. s/p CT guided biopsy of liver mass fu path repeat labs in am Subjective ROS Limited/Unobtainable: Yes Allergies: Coded Allergies: No Known Allergies (Unverified , 02/17/19) Objective Last 24 Hour Vital Signs Date Time Temp Pulse Resp B/P (MAP) Pulse Ox O2 Delivery O2 Flow Rate FiO2 12/22/19 08:50 127/68 12/22/19 08:49 127 68/71 12/22/19 08:35 72 12/22/19 08:31 97.7 71 18 122/68 (86) 97 12/22/19 04:00 73 122/84 (97) 98 12/22/19 04:00 62 12/22/19 00:00 62 12/21/19 23:46 97.3 66 20 103/70 (81) 98 12/21/19 21:00 Room Air 12/21/19 20:00 69 12/21/19 20:00 72 20 113/74 (87) 98 12/21/19 16:00 98.2 74 20 107/80 (89) 98 12/21/19 16:00 74 12/21/19 12:00 98.3 78 20 115/79 (91) 98 12/21/19 12:00 78 12/21/19 09:12 60 130/71 12/21/19 09:11 130/71 Intake and Output 12/21/19 12/22/19 19:00 07:00 Intake Total 240 ml Balance 240 ml Intake Oral 240 ml # Voids 3 2 Laboratory Tests 12/22/19 05:35: White Blood Count 4.3L, Red Blood Count 3.23L, Hemoglobin 8.7L, Hematocrit 28.3L , Mean Corpuscular Volume 88, Mean Corpuscular Hemoglobin 27.0, Mean Corpuscular Hemoglobin Concent 30.9L, Red Cell Distribution Width 26.3H, Platelet Count 211, Mean Platelet Volume 4.8L, Neutrophils (%) (Auto) 58.8, Lymphocytes (%) (Auto) 28.0, Monocytes (%) (Auto) 9.9, Eosinophils (%) (Auto) 2.6, Basophils (%) (Auto) 0.7, Sodium Level 143, Potassium Level 3.9, Chloride Level 110H, Carbon Dioxide Level 22, Anion Gap 11, Blood Urea Nitrogen 16, Creatinine 1.3, Estimat Glomerular Filtration Rate > 60, Glucose Level 85, Calcium Level 8.8 Height (Feet): 5 Height (Inches): 5.00 Weight (Pounds): 163 General Appearance: alert EENT: normal ENT inspection Neck: supple Cardiovascular: normal rate Respiratory/Chest: decreased breath sounds Abdomen: normal bowel sounds, non tender, soft Extremities: non-tender Slick Bailey MD December 22, 2019 09:05
--- NOTE | 2019-12-22 10:36 | NUR ---
RADIOLOGY DEPT., CHEST X-RAY DONE.-P.DYE
--- NOTE | 2019-12-22 11:00 | Diagnostic Imaging Report ---
Indication: Shortness of breath Technique: One view of the chest Comparison: 07/16/2016 Findings: The heart is borderline enlarged with left ventricular hypertrophy configuration. There is a calcified granuloma at the left lung base. Metallic fragments are scattered in the left chest. No definite infiltrates, effusions, or congestion. Impression: Correlate cardiomegaly No definite acute process. Findings as noted
--- NOTE | 2019-12-22 11:21 | Pulmonology Progress Note ---
Assessment/Plan Problems: (1) Liver mass (2) Positive occult stool blood test (3) Acute encephalopathy (4) Severe anemia (5) Cirrhosis (6) Hepatitis C (7) Gout (8) Hypertension (9) Portal hypertension Assessment/Plan liver biopsy done, d/w pathologist, it is probably HCC, She will be sure after a few more staining. Pt wants to go home now and doesn't want to wait for definite results. MRI of liver done: * 6.5 cm mass in the hepatic dome with imaging characteristics highly concerning for hepatocellular carcinoma. * Cirrhosis with sequela of portal hypertension including splenomegaly blood smear reviewed by pathologist: LEUCOPENIA WITH SCATTERED REACTIVE/ATYPICAL LYMPHOCYTES NORMOCYTIC HYPOCHROMIC ANEMIA WITH ANISOCYTOSIS monitor BP symptomatic treatment CEA is slightly increased. Subjective ROS Limited/Unobtainable: No Interval Events: wants to go home today Allergies: Coded Allergies: No Known Allergies (Unverified , 02/17/19) Objective Last 24 Hour Vital Signs Date Time Temp Pulse Resp B/P (MAP) Pulse Ox O2 Delivery O2 Flow Rate FiO2 12/22/19 09:00 Room Air 12/22/19 08:50 127/68 12/22/19 08:49 127 68/71 12/22/19 08:35 72 12/22/19 08:31 97.7 71 18 122/68 (86) 97 12/22/19 04:00 73 122/84 (97) 98 12/22/19 04:00 62 12/22/19 00:00 62 12/21/19 23:46 97.3 66 20 103/70 (81) 98 12/21/19 21:00 Room Air 12/21/19 20:00 69 12/21/19 20:00 72 20 113/74 (87) 98 12/21/19 16:00 98.2 74 20 107/80 (89) 98 12/21/19 16:00 74 12/21/19 12:00 98.3 78 20 115/79 (91) 98 12/21/19 12:00 78 Intake and Output 12/21/19 12/22/19 19:00 07:00 Intake Total 240 ml Balance 240 ml Intake Oral 240 ml # Voids 3 2 General Appearance: WD/WN HEENT: normocephalic, atraumatic Respiratory/Chest: lungs clear, normal breath sounds Cardiovascular: normal rate, regular rhythm Abdomen: normal bowel sounds, soft, non tender 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, abnormal gait Lymphatic: no neck adenopathy Laboratory Tests 12/22/19 05:35: White Blood Count 4.3L, Red Blood Count 3.23L, Hemoglobin 8.7L, Hematocrit 28.3L , Mean Corpuscular Volume 88, Mean Corpuscular Hemoglobin 27.0, Mean Corpuscular Hemoglobin Concent 30.9L, Red Cell Distribution Width 26.3H, Platelet Count 211, Mean Platelet Volume 4.8L, Neutrophils (%) (Auto) 58.8, Lymphocytes (%) (Auto) 28.0, Monocytes (%) (Auto) 9.9, Eosinophils (%) (Auto) 2.6, Basophils (%) (Auto) 0.7, Sodium Level 143, Potassium Level 3.9, Chloride Level 110H, Carbon Dioxide Level 22, Anion Gap 11, Blood Urea Nitrogen 16, Creatinine 1.3, Estimat Glomerular Filtration Rate > 60, Glucose Level 85, Calcium Level 8.8 Current Medications Medications (Trade) Dose Ordered Sig/Alexandru Route PRN Reason Start Time Stop Time Status Last Admin Dose Admin Acetaminophen (Tylenol) 650 mg Q4H PRN ORAL Pain Scale (6-10) 12/16/19 00:15 01/15/20 00:14 Acetaminophen/ Hydrocodone Bitart ([place] 10/325) 1 tab Q4H PRN ORAL For Pain 12/16/19 12:38 12/23/19 12:37 12/21/19 23:57 Allopurinol (allopurinoL) 300 mg DAILY ORAL 12/16/19 09:00 01/15/20 08:59 12/22/19 08:49 Bisacodyl (Dulcolax) 10 mg PRN RECTAL 12/16/19 00:15 03/15/20 00:14 Docusate Sodium (Colace) 100 mg TWICE A DAY ORAL 12/16/19 09:00 01/15/20 08:59 12/22/19 08:48 Epoetin Rigoberto (Epoetin Rigoberto-EPBX(NON ESRD)) 10,000 unit SUN-SUN-SUN SUBQ 12/17/19 21:00 03/16/20 20:59 12/19/19 21:14 Ferrous Sulfate (Feosol) 325 mg THREE TIMES A DAY ORAL 12/16/19 09:00 03/15/20 08:59 12/22/19 08:49 Losartan Potassium (Cozaar) 25 mg DAILY ORAL 12/17/19 09:00 01/16/20 08:59 12/22/19 08:50 Metoprolol Succinate (Toprol XL) 100 mg DAILY ORAL 12/17/19 09:00 03/16/20 08:59 12/22/19 08:49 Sodium Phosphate (Fleet's Sodium Phosl Enema) 133 ml DAILYPRN PRN RECTAL CONSTIPATION 12/16/19 12:38 01/15/20 12:37 Edgar Max MD December 22, 2019 11:21
[2019-12-22 12:00] VITALS: BP 109/69
--- NOTE | 2019-12-22 12:00 | NUR ---
*-*DISCHARGE PLANNING*-* PATIENT HAS BEEN REFERRED TO: [facility] P: [phone] F: [phone] Addendum: 12/22/19 at 1340 by TANYA MENSAH [facility] P: [phone] S/W LUIS EDUARDO, GOING OVER CLINICALS, WILL CALL BACK
--- NOTE | 2019-12-22 14:05 | NUR ---
*-*DISCHARGE PLANNED*-* PATIENT HAS BEEN ACCEPTED WITH: [facility] P: [phone] S/W BILLY, STATED, WILL SERVICE PATIENT UPON DISCHARGE.
--- NOTE | 2019-12-22 15:00 | NUR ---
Cleared by Dr. Max & Dr. Cary for Discharge. Per Patient he has medications at home. Prescription called in to his Pharmacy. all belonging given to Patient. Meds. from Pharmacy returned to Pt. Discharged in Stable condition. Ambulatory with Cane. Alert & Oriented.
--- NOTE | 2019-12-23 13:58 | Discharge Summary ---
Discharge Summary Discharge Summary _ DATE OF ADMISSION: 12/15/2019 DATE OF DISCHARGE: 12/22/2019 DISCHARGED BY: Dr. Quinn REASON FOR ADMISSION: 69 years old male with past medical history of cerebrovascular disease, status post CVA x2, coronary artery disease, status post FL, status post cardiac catheterization, hypertension, gout, anemia, gastric ulcer with hemorrhage, status post exploratory laparotomy secondary to bleeding gastric ulcer, presented with shortness of breath and syncopal episode . Patient apparently went on the bike ride and afterwards at home started to experience shortness of breath and lost consciousness for a moment while watching TV. His fiance subsequently called paramedics. Patient initially presented to [facility] ED . Initial work-up was within normal limits. Patient subsequently was transferred to [facility] due to insurance purposes. CONSULTANTS: maintenance representative Dr. Gonzalez pulmonary/critical care Dr. Max GI specialist Dr. Bailey [facility] COURSE: Patient admitted to telemetry floor. Patient initially received IV hydration. Pulse oximetry remained stable on room air. Echocardiogram revealed preserved ejection fraction. Troponin was negative. EKG revealed no acute ischemic changes. Patient was ruled out for acute myocardial infarction. Blood pressure improved at [facility] in few hours suggestive of probable hypotension being the cause of syncope , as per maintenance representative. No orthostatic changes noted. Carotid duplex revealed no hemodynamically significant stenosis. CT of the head at [place] was negative. Brain MRI revealed no evidence of acute intracranial pathology. Blood pressure was managed with beta-joseline and ARB. Blood pressure remained stable. Stool for occult blood was positive. CEA elevated 5.5. LFT elevated. Abdominal ultrasound revealed possible 3.8 cm left lobe liver mass. Hypoechoic 6.1 cm right lobe liver mass. Increased hepatic echogenicity and surface nodularity suggestive of cirrhotic changes. Cholelithiasis. Negative for dilated ducts. Abdominal MRI revealed 6.5 cm mass in the hepatic dome with imaging characteristics, highly concerning for hepatocellular carcinoma. Cirrhosis with sequela of portal hypertension, including splenomegaly. Cholelithiasis without evidence of acute cholecystitis. Diverticulosis without evidence of acute diverticulitis. 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 Patient also undergone CT guided biopsy of liver mass. Follow-up with the pathology results. Alpha-fetoprotein within normal limits 5.1. Pain management was addressed. Hemoglobin and hematocrit were closely monitored with goal to keep hemoglobin above 7. Prior to discharge hemoglobin 8.7 , hematocrit 28.3. Supportive care provided. Patient was cleared for discharge home with outpatient follow-up . FINAL DIAGNOSES: Syncopal episode likely due to hypotension Acute encephalopathy -resolved Liver mass, status post biopsy Hepatitis C Portal hypertension Cirrhosis Cerebrovascular disease with a history of CVA x2 Coronary artery disease, status post FL Acute on chronic renal failure Cholelithiasis Diverticulosis Hypertension GI bleeding Chronic anemia Status post EGD and colonoscopy Gastritis Diverticulosis Gout DISCHARGE MEDICATIONS: See Medication Reconciliation list. DISCHARGE INSTRUCTIONS: Patient was discharged home. Follow up with primary care provider in 1 week for biopsy results and further management. Meghann Adkins NP December 23, 2019 13:58
== END 2019-12-22 16:19 | disposition home or self-care (01) | DRG 312 ==
LOC: 2E 22:10
DX: I95.2 Hypotension due to drugs (principal); G93.40 Encephalopathy, unspecified; K76.6 Portal hypertension; N17.9 Acute kidney failure, unspecified; C22.0 Liver cell carcinoma; I85.10 Secondary esophageal varices without bleeding; K92.2 Gastrointestinal hemorrhage, unspecified; K74.60 Unspecified cirrhosis of liver; I13.10 Hypertensive heart and chronic kidney disease without heart failure, with stage 1 through stage 4 chronic kidney disease, or unspecified chronic kidney disease; N18.9 Chronic kidney disease, unspecified; I25.10 Atherosclerotic heart disease of native coronary artery without angina pectoris; T46.5X5A Adverse effect of other antihypertensive drugs, initial encounter; I25.2 Old myocardial infarction; M10.9 Gout, unspecified; Z79.82 Long term (current) use of aspirin; F17.200 Nicotine dependence, unspecified, uncomplicated; B19.20 Unspecified viral hepatitis C without hepatic coma; Z86.73 Personal history of transient ischemic attack (TIA), and cerebral infarction without residual deficits; K80.20 Calculus of gallbladder without cholecystitis without obstruction; K29.70 Gastritis, unspecified, without bleeding; K70.30 Alcoholic cirrhosis of liver without ascites; B18.2 Chronic viral hepatitis C; K57.90 Diverticulosis of intestine, part unspecified, without perforation or abscess without bleeding; K64.8 Other hemorrhoids; Z95.5 Presence of coronary angioplasty implant and graft; R07.89 Other chest pain
CPT/HCPCS: 36415; 70551; 71045; 74183; 76700; 76942; 80048; 80053; 82105; 82270; 82378; 82607; 82746; 83540; 83550; 83615; 83735; 84100; 84484; 85007; 85025; 85044; 85060; 85610; 85651; 85730; 93306; 93880; 94003; 94150; A9585; J2250